=== PATIENT | female | born 1980 | race Caucasian/White ===

== ENCOUNTER → 2020-08-10 10:51 | Outpatient (CLI) | payer OTHER, SELFPAY ==
--- NOTE | ~2020-08-10 | MM_ITS ---
EXAMINATION: MM screening [facility] BI w renetta HISTORY: Screening TECHNIQUE: Craniocaudal and mediolateral oblique 3-D tomosynthesis images were obtained and synthetic 2-D images were generated. CAD analysis was submitted and interpreted. COMPARISON: Comparison to multiple prior studies sequentially, with oldest reviewed study dated 01/20. BREAST PARENCHYMAL COMPOSITION: Breast composed of scattered areas of fibroglandular density. FINDINGS: Decreased size over time of left breast mass containing tissue marker compared with prior s tudies. This was previously biopsy proven benign. There is no evidence of suspicious mass, calcificat ion, or architectural distortion to suggest malignancy in either breast. There has been no suspicious interval change. IMPRESSION: 1. No mammographic evidence of malignancy. 2. Recommend routine screening mammography in one year. BI-RADS Category 2: Benign finding(s). Reviewed, dictated and finalized at location A. 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
== END ==
PROVIDERS: Visit Provider Nurse Practitioner
DX: Z12.31 Encounter for screening mammogram for malignant neoplasm of breast (principal)
CPT/HCPCS: 77063; 77067

== ENCOUNTER → 2021-09-18 16:40 | Outpatient (CLI) | payer OTHER, SELFPAY ==
--- NOTE | ~2021-09-18 | MM_ITS ---
EXAMINATION: MM screening [facility] BI w renetta HISTORY: Screening mammogram TECHNIQUE: Craniocaudal and mediolateral oblique 3-D tomosynthesis images were obtained and synthetic 2-D images were generated. CAD analysis was submitted and interpreted. COMPARISON: 08/10/2020, 05/18/2019 BREAST PARENCHYMAL COMPOSITION: There are scattered areas of fibroglandular density. FINDINGS: There is no suspicious mass, calcification, or architectural distortion to suggest malignan cy in either breast. There has been no suspicious interval change. IMPRESSION: 1. No mammographic evidence of malignancy. 2. Recommend routine screening mammography in one year. BI-RADS Category 1: Negative Reviewed, dictated and finalized at location A.
== END ==
PROVIDERS: PCP Internal Medicine; Visit Provider Nurse Practitioner
DX: Z12.31 Encounter for screening mammogram for malignant neoplasm of breast (principal)
CPT/HCPCS: 77063; 77067

== ENCOUNTER → 2022-09-20 07:19 | Outpatient (CLI) | payer OTHER, SELFPAY ==
--- NOTE | ~2022-09-20 | MM_ITS ---
EXAMINATION: MM screening [facility] BI w renetta HISTORY: Screening TECHNIQUE: Craniocaudal and mediolateral oblique 3-D tomosynthesis images were obtained and synthetic 2-D images were generated. CAD analysis was submitted and interpreted. COMPARISON: Comparison to multiple prior studies sequentially, with oldest reviewed study dated 04/25. BREAST PARENCHYMAL COMPOSITION: .The breasts are extremely dense, which lowers the sensitivity of [facility] mography FINDINGS: There is no evidence of suspicious mass, calcification, or architectural distortion to sugg est malignancy in either breast. There has been no suspicious interval change. IMPRESSION: 1. No mammographic evidence of malignancy. 2. Recommend routine screening mammography in one year. BI-RADS Category 1: Negative Reviewed, dictated and finalized at location A.
== END ==
PROVIDERS: PCP Internal Medicine; Visit Provider Obstetrics & Gynecology Gynecology
DX: Z12.31 Encounter for screening mammogram for malignant neoplasm of breast (principal)
CPT/HCPCS: 77063; 77067

== ENCOUNTER 2023-10-18 15:59 | Outpatient (CLI) | payer OTHER, SELFPAY ==
--- NOTE | ~2023-10-18 | MM_ITS ---
EXAMINATION: MM screening [facility] BI w renetta HISTORY: Screening mammogram TECHNIQUE: Craniocaudal and mediolateral oblique 3-D tomosynthesis images were obtained and synthetic 2-D images were generated. CAD analysis was submitted and interpreted. COMPARISON: 09/20/2022, 09/18/2021 bilateral Screening mammogram examinations BREAST PARENCHYMAL COMPOSITION: There are scattered areas of fibroglandular density. FINDINGS: There are 2 biopsy markers on the left; history of benign biopsies. There is no evidence of suspicious mass, calcification, or architectural distortion to suggest malignancy in either breast . There has been no suspicious interval change. IMPRESSION: 1. No mammographic evidence of malignancy. 2. Recommend routine screening mammography in one year. BI-RADS Category 2: Benign finding(s). Reviewed, dictated and finalized at location A.
== END 2023-10-18 16:00 ==
LOC: MICIMG 15:59
PROVIDERS: PCP Obstetrics & Gynecology Gynecology; Visit Provider Obstetrics & Gynecology Gynecology
DX: Z12.31 Encounter for screening mammogram for malignant neoplasm of breast (principal)
CPT/HCPCS: 77063; 77067

== ENCOUNTER 2024-02-27 13:29 | Emergency (ER) | payer OTHER, SELFPAY ==
[2024-02-27 13:30] VITALS: BP 166/89; PULSE 97; RESP 16; TEMP 36.7; O2SAT 98
[2024-02-27] MEDS: diphenhydrAMINE HCl CAP 25 MG CAPSULE PO (16:10)
[2024-02-27] MEDS: METOCLOPRAMIDE HCL INJ 10 MG/2 ML VIAL IM (16:11)
[2024-02-27 16:17] VITALS: BP 142/94; PULSE 77; RESP 16; O2SAT 95
[2024-02-27] MEDS: KETOROLAC 30 MG/ML VIAL (*BKC) 15 MG IM (17:39)
--- NOTE | 2024-02-27 17:43 | PC.NURSE ---
Pt reports no nausea and 2/10 head pain at this time. D/t no nausea, pt refused Compazine. Toradol administered. See AUG.
--- NOTE | 2024-02-27 17:51 | ED.HA ---
HPI - Headache General Chief Complaint: Headache Stated Complaint: left eye pain x 4 days. Time Seen by Provider: 02/27/24 15:15 History of Present Illness HPI Narrative: Patient has history of migraines, several days ago started having a mild headache, which gradually worsened, she took ibuprofen and Tylenol a and I got slightly better, and yesterday started worsening again and she woke up today and was continuing to get worse, if feels like it has settled behind her left eye and radiates to the back the stabbing pain like her usual migraines, she did try taking Imitrex twice without improvement. Some nausea and light sensitivity Related Data Allergies Allergy/AdvReac Type Severity Reaction Status Date / Time No Known Allergies Allergy Unknown Verified 09/27/22 07:19 Review of Systems Review of Systems: All systems reviewed & are unremarkable except as noted in HPI and below PMFSH Family History Family History (System 09/27/22 @ 07:19 by Aron Og) Mother Hypertension Grandparent Diabetes mellitus Social History Social History (System 09/27/22 @ 07:19 by Aron Og) Alcohol intake: current Exam Narrative: EXAMINATION OF ORGAN SYSTEMS/BODY AREAS: Constitutional: Vital signs per nursing GENERAL:[No acute distress, non-toxic appearing.] HEAD: Normal with no signs of head trauma. EYES: EOMI, conjunctiva normal ENT: Hearing grossly intact LUNGS: Nonlabored breathing. HEART: [Regular rate and rhythm] ABD: Distension EXT: Normal range of motion SKIN: [No rashes or lesions.] NEURO: [Alert and oriented x 3. No gross focal sensory or strength deficits.] No facial droop. PSYCH: Normal affect Course Vital Signs Vital signs: Vital Signs Temperature 98.0 F 02/27/24 13:30 Pulse Rate 97 02/27/24 13:30 Respiratory Rate 16 02/27/24 13:30 Blood Pressure 166/89 H 02/27/24 13:30 Pulse Oximetry 98 02/27/24 13:30 Temperature 98.0 F 02/27/24 13:30 Pulse Rate 77 02/27/24 16:17 Respiratory Rate 16 02/27/24 16:17 Blood Pressure 142/94 H 02/27/24 16:17 Pulse Oximetry 95 02/27/24 16:17 MDM - Headache MDM Narrative Medical decision making narrative: 43-year-old female with history of migraines presents to the emergency department for headache which feels like her usual migraines. Patient is hemodynamically stable. No focal neurological or cranial nerve deficits on exam. No meningeal signs. The headache was gradual in onset, it is not exertional and does not appear consistent with subarachnoid hemorrhage or intracranial bleeding. No trauma. Patient is given headache cocktail including Reglan, Benadryl. Patient's headache only marginally better so I did give additional dose of Compazine and Toradol. On reevaluation, the patient feels significantly better with the headache resolved. No neurological deficits. Patient is comfortable going home for outpatient follow-up with primary care physician and/or neurology and provided with strict return precautions, especially for worsening headaches, neck pain/stiffness, fever or weakness, numbness/tingling or persistent vomiting. Discharge Plan Discharge Clinical Impression: Migraine Patient Disposition: Home, Self-Care Condition: Stable Instructions: Antibiotic Form, Migraine Headache (ED) Additional Instructions: Please follow-up with your doctor, come back to the ER if your headache returns or worsens. Prescriptions: New ondansetron 4 mg tablet,disintegrating 4 mg PO Q8H PRN (Reason: nausea and vomiting) Qty: 10 0RF Follow-up/Referrals: Laine Alvarez MD [Primary Care Provider] -
[2024-02-27 18:04] VITALS: BP 139/98; PULSE 69; RESP 16; O2SAT 97
== END 2024-02-27 18:07 | disposition home or self-care (01) ==
PROVIDERS: Emergency Provider Emergency Medicine; PCP Obstetrics & Gynecology Gynecology
DX: G43.909 Migraine, unspecified, not intractable, without status migrainosus (principal)
CPT/HCPCS: 96372; 99284; A9270; J1885; J2765

== ENCOUNTER 2024-05-28 11:59 | Outpatient (CLI) | payer OTHER, SELFPAY ==
--- NOTE | ~2024-05-28 | US_ITS ---
Pelvic ultrasound. Clinical History: Displacement of IUD Technique: Realtime transvaginal scanning of the pelvis was performed. Color flow Doppler and Doppler spectral analysis were performed. Findings: The uterus is anteverted. The endometrial stripe has a thickness of 5 mm. IUD in satisfact ory position. Heterogeneous intramural fibroid measures 2.6 cm in maximum diameter.. The right ovary measures 2.3 x 2.2 x 2.6 cm. No significant right ovarian or adnexal mass is seen. The left ovary measures 3.4 x 1.8 x 2.4 cm. No significant left ovarian or adnexal mass is seen. There is no evidence of free fluid in the cul de sac. Impression: IUD in satisfactory position. 2.6 cm fibroid. Reviewed, dictated and finalized at [facility]. KER Impression: IUD in satisfactory position. 2.6 cm fibroid.
== END 2024-05-28 12:00 | disposition home or self-care (01) ==
PROVIDERS: PCP Nurse Practitioner Women's Health; Visit Provider Nurse Practitioner Women's Health
DX: T83.32XA Displacement of intrauterine contraceptive device, initial encounter (principal); D25.1 Intramural leiomyoma of uterus; Y83.8 Other surgical procedures as the cause of abnormal reaction of the patient, or of later complication, without mention of misadventure at the time of the procedure
CPT/HCPCS: 76830

== ENCOUNTER 2024-10-19 15:29 | Outpatient (CLI) | payer OTHER, SELFPAY ==
--- NOTE | ~2024-10-19 | MM_ITS ---
EXAMINATION: MM screening [facility] BI w renetta HISTORY: Screening mammogram TECHNIQUE: Craniocaudal and mediolateral oblique 3-D tomosynthesis images were obtained and synthetic 2-D images were generated. CAD analysis was submitted and interpreted. COMPARISON: 10/18/2023, 09/20/2022, 09/18/2021, 08/10/2020 BREAST PARENCHYMAL COMPOSITION:Not Dense. There are scattered areas of fibroglandular density. FINDINGS: No suspicious mass, calcification, or architectural distortion are identified in either pastor ast to suggest malignancy. There has been no suspicious interval change. IMPRESSION: No mammographic evidence of malignancy. Recommend routine screening mammography in one year. BI-RADS Category 1: Negative Reviewed, dictated and finalized at location .
== END 2024-10-19 15:30 | disposition home or self-care (01) ==
LOC: MICIMG 15:30
PROVIDERS: PCP Obstetrics & Gynecology Gynecology; Visit Provider Obstetrics & Gynecology Gynecology
DX: Z12.31 Encounter for screening mammogram for malignant neoplasm of breast (principal)
CPT/HCPCS: 77063; 77067

== ENCOUNTER 2025-01-23 14:31 | Emergency (ER) | payer OTHER, SELFPAY ==
[2025-01-23 14:40] VITALS: BP 147/93; PULSE 105; RESP 16; TEMP 36.6; O2SAT 98
--- NOTE | 2025-01-23 15:06 | ED.URI ---
HPI - URI/Sore Throat General Chief Complaint: Upper Respiratory Infection Stated Complaint: Sore Throat Time Seen by Provider: 01/23/25 14:54 Source: patient and RN notes reviewed Mode of arrival: ambulatory Limitations: no limitations History of Present Illness HPI Narrative: Patient presents today complaining of left-sided sore throat with painful swallowing that started this morning. Currently rates her pain 5/10 and she has tried Excedrin, Chloraseptic, and cough drops without improvement. Denies shortness of breath or difficulty swallowing. Denies congestion, cough, fever, or any additional upper respiratory symptoms Related Data Allergies Allergy/AdvReac Type Severity Reaction Status Date / Time No Known Allergies Allergy Unknown Verified 01/23/25 14:57 PMFSH Family History Family History Mother Hypertension Grandparent Diabetes mellitus Social History Social History Alcohol intake: current Comments At time of signature, I have reviewed and agree with nursing past medical, surgical, social and family history unless otherwise noted. Please see nursing chart for further information. There is no relevant family history pertinent to the presenting complaint Exam Narrative: GENERAL: Well-appearing, well-nourished, and in no acute distress. HEAD: Normocephalic, atraumatic. EYES: EOMI. No redness or drainage. Conjunctivae normal. ENT: Mucous membranes pink and moist. Nares clear. No rhinorrhea. TMs normal bilaterally. Throat normal. Uvula midline. Large white ulceration to the left palatine arch area on an erythematous base NECK: Normal AROM. Supple. No lymphadenopathy. CHEST: No respiratory distress. Clear to auscultation. HEART: Regular rate and rhythm. No murmur appreciated. EXTREMITIES: Normal range of motion. No edema. SKIN: Warm, dry, no rash. Capillary refill normal. Normal skin turgor. NEURO: No focal deficits. Alert and oriented x3. Gait steady. PSYCH: Normal affect. No signs of depression or anxiety. Course Course Level of Care: Express Care Visit Vital Signs Vital signs: Vital Signs Temperature 97.9 F 01/23/25 14:40 Pulse Rate 105 H 01/23/25 14:40 Respiratory Rate 16 01/23/25 14:40 Blood Pressure 147/93 H 01/23/25 14:40 Pulse Oximetry 98 01/23/25 14:40 Temperature 97.9 F 01/23/25 14:40 Pulse Rate 105 H 01/23/25 14:40 Respiratory Rate 16 01/23/25 14:40 Blood Pressure 147/93 H 01/23/25 14:40 Pulse Oximetry 98 01/23/25 14:40 Reviewed MDM - URI/Sore Throat MDM Narrative Medical decision making narrative: 44-year-old female patient presents today with a left-sided sore throat since this morning without any additional symptoms. Exam shows large aphthous ulcer to the left palatine arch area with surrounding erythema, remainder of exam is grossly normal. Vital signs stable. Discussed dietary considerations until this large ulceration heals. Anticipatory guidance given. Differential Diagnosis Differential diagnosis: Likely upper respiratory infection, pharyngitis and other (Strep throat, mononucleosis, aphthous ulcer) Critical Care Time Critical Care Time Critical Care Time: No Discharge Plan Discharge Clinical Impression: Oral aphthae Patient Disposition: Home Condition: Stable Additional Instructions: Your rapid strep test is negative today. You have a large canker sore like lesion in the back of your throat and 1 at the roof of your mouth. These are the source of your discomfort. Please taking anti-inflammatories such as Aleve or ibuprofen. You may continue to use the Chloraseptic and cough drops as well. Foods that may worsen your discomfort include fried, spicy, citrus, salty foods, or foods that may scratch including chips or crackers. Follow-up with your PCP in 1 week if symptoms are not improving, or sooner if symptoms worsen. Your blood pressure was elevated above 120/80 today at Urgent Care. This puts you above the threshold for follow up. Please schedule a followup visit with your personal physician as soon as possible, for further evaluation and treatment. Even blood pressure exceeding 120/80 may indicate pre-hypertension. Patient Language: Kazakh Prescriptions: No Action ondansetron 4 mg tablet,disintegrating 4 mg PO Q8H PRN (Reason: nausea and vomiting) Qty: 10 0RF Follow-up/Referrals: Raheel,Jeffry Medina MD [Primary Care Provider] - Time of Disposition: 15:10
[2025-01-23 15:18] LABS: EDSTREPNEGPOS1 Negative (Negative)
== END 2025-01-23 15:13 | disposition home or self-care (01) ==
PROVIDERS: Emergency Provider Nurse Practitioner; PCP Internal Medicine
DX: K12.0 Recurrent oral aphthae (principal)
CPT/HCPCS: 87880; 99212; G0463

== ENCOUNTER 2025-01-31 21:35 | Emergency (ER) | payer OTHER, SELFPAY ==
[2025-01-31] VITALS (12 sets, daily range): BP systolic 139–183; BP diastolic 79–110; PULSE 91; RESP 16; TEMP 36.6; O2SAT 97–100
--- NOTE | ~2025-01-31 | CT_ITS ---
EXAMINATION: CT abdomen pelvis w con DATE: 02/01/2025 00:11 INDICATION: Right lower quadrant pain. UTI. TECHNIQUE: Computed tomography (CT) of the abdomen and pelvis was performed with 100 cc Omnipaque 350 intravenous contrast. The dose-length product was 1417.62 mGy-cm. Automated exposure control and ite rative reconstruction technique were employed. COMPARISON: CT dated 08/22/2011 FINDINGS: Lung bases unremarkable. Heart size normal. No significant pleural or pericardial effusion. Status post cholecystectomy. Nonobstructing right nephrolithiasis. IUD present. No ureteral stone or hydronephrosis. Normal appendix. Colonic diverticulosis without evidence for diverticulitis. No free air or free fluid. No acute osseous abnormality. IMPRESSION: 1. No acute abdominal abnormality. 2: Nonobstructing right nephrolithiasis. Reviewed, dictated and finalized at location A.
--- OUTSIDE RECORDS SUMMARY | 2025-01-31 21:37 | XMS_ITS | Patient Health Record ---
Author Organization [facility] Address [address] [place], [place] [id number] Care Team Providers Care Teacher Assistant Name Role Phone MICHELLMONROEHEBER Unavailable [phone] Shemar Pickering Unavailable Unavailable Reason For Referral No Information Plan Of Treatment No Information Insurance Providers Payer Name Payer Address Payer Phone Subscriber Number Group Number Insured Name Patient Relationship to Insured Coverage Start Date [facility]age End Date [facility] [address] [place], [place] [id number] CAITLIN CEJA Self - patient is the insured
--- OUTSIDE RECORDS SUMMARY | 2025-01-31 21:37 | XMS_ITS | Clinical Summary ---
Author Organization [facility] Address [address] [place] [address] Care Team Providers Care Tripe Scraper Name Role Phone Shemar Pickering MD Primary Care Provider + Shemar Pickering MD Unavailable [phone] Allergies Active Allergy Reactions Criticality Noted Date Comments Hydrocodone Stomach upset Low 04/16/2019 Stomach/GI Upset Tramadol Nausea & Vomiting Low 04/16/2019 NAUSEA/VOMITTING/HEART RACING/JITTERY Medications levonorgestrel (MIRENA) IUD inserted 0 08/23/19 12 Active ergocalciferol (VITAMIN D2) 50,000 unit capsule take 1 capsule by oral route every week 12 0 04/19/20 16 Active baclofen (LIORESAL) 5 mg tablet Take 1 tablet (5 mg total) by mouth 3 (three) times a day as needed for muscle spasms 90 tablet 5 02/22/20 23 Active famotidine (PEPCID) 40 mg tabletIndicatio ns:Gastroesopha geal reflux disease without esophagitis Take 1 tablet (40 mg total) by mouth nightly as needed for heartburn 30 tablet 3 05/09/20 23 Active Emgality Pen 120 mg/mL pen injector INJECT 1 ML SUBCUTANEOUSLY ONCE EVERY MONTH 05/21/20 23 Active chlorhexidine (PERIDEX) 0.12 % solution 09/25/19 24 Active gabapentin (NEURONTIN) 300 mg capsule Take 1 capsule (300 mg total) by mouth 3 (three) times a day 90 capsule 11 01/27/20 24 Active SUMAtriptan (IMITREX) 50 mg tabletIndicatio ns:Migraine Take 1 tablet (50 mg total) by mouth once as needed for migraine (headache) May repeat one time after 2 hours if needed. 9 tablet 2 02/07/20 24 025 Active Additional Information Patient not taking.Reported on 06/04/2024 lidocaine (XYLOCAINE) 5 % ointmentIndicat ions:Small fiber neuropathy Apply topically nightly as needed for pain 35 g 3 02/07/20 Active carBAMazepine XR (TEGretol XR) 400 mg 12 hr tablet Take 1 tablet (400 mg total) by mouth 2 (two) times a day 60 tablet 2 02/07/20 24 Active Additional Information Patient not taking.Reported on 06/04/2024 ubrogepant (Ubrelvy) 100 mg tablet Take 1 tablet (100 mg total) by mouth once as needed for migraine May repeat dose once in 2 hours if no relief. Do not exceed 2 doses in 24 hours. 10 tablet 11 03/10/20 24 025 Active nitrofurantoin monohydrate (MACROBID) 100 mg capsule TAKE 1 CAPSULE BY MOUTH TWICE DAILY FOR 7 DAYS 05/17/20 24 Active escitalopram (LEXAPRO) 20 mg tablet Take 1 tablet by mouth once daily 90 tablet 5 09/12/19 25 Active Active Problems Problem Noted Date Diagnosed Date Small fiber neuropathy 06/01/2024 Screening for colon cancer 09/20/2023 Assessment & Plan (09/20/2023 11:58 AM CDT): No prior colonoscopy. No family history colon cancer. -schedule colonoscopy -The risks (risks of bleeding, infection, perforation requiring surgery, missed polyps/cancer, dental injury, aspiration pneumonia, anesthesia complications such as drug reaction and cardiopulmonary complications including rare chance of ), benefits, and alternatives of the planned procedure were explained to the patient who understands and consents to having procedure done. Paresthesia of skin 07/26/2023 Dysphagia 05/09/2023 Assessment & Plan (09/20/2023 11:58 AM CDT): Dysphagia for the past few months. Dysphagia to solids, worse with bread and meat. Drinks liquid to push food down. EGD August 2023 with mild nonobstructive Schatzki's ring status post dilation with 20 mm balloon. Dysphagia improved significantly with dilation. 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 Dysphagia to solids, worse with bread and meat. Drinks liquid to push food down. -schedule EGD -The risks (risks of bleeding, infection, perforation requiring surgery, missed polyps/cancer, dental injury, aspiration pneumonia, anesthesia complications such as drug reaction and cardiopulmonary complications including rare chance of ), benefits, and alternatives of the planned procedure were explained to the patient who understands and consents to having procedure done. Gastroesophageal reflux disease without esophagi tis 05/09/2023 Assessment & Plan (09/20/2023 11:58 AM CDT): Chronic GERD intermittently, was getting progressively worse, now improved with PPI daily and famotidine q.h.s.. EGD August 2023 with LA grade A esophagitis. -continue omeprazole 20 mg p.o. daily and famotidine prn -RECOMMENDATIONS given include: anti-reflux maneuvers, Avoid acidic foods like oranges and tomatoes., avoidance of spicy foods, avoid eating 3-4 hours before bed, elevation of the head of the bed, and weight loss Assessment & Plan (05/09/2023 7:46 AM RETAIL SALES MERCHANDISER): Chronic GERD intermittently, getting progressively worse over the past few months. Worse with spicy foods, red sauces, and overeating. Symptoms worse at night when lying down. Tried Nexium and Prilosec which helps some. -start omeprazole 20 mg p.o. daily and famotidine 40 mg p.o. q.h.s. -RECOMMENDATIONS given include: anti-reflux maneuvers, Avoid acidic foods like oranges and tomatoes., avoidance of spicy foods, avoid eating 3-4 hours before bed, elevation of the head of the bed, and weight loss Tendinitis of finger of right hand 07/18/2018 Vitamin D deficiency 03/07/2017 Vitamin B12 deficiency 03/07/2017 Healthcare maintenance 02/18/2017 Medication management 02/18/2017 Migraine with aura and witho ut status migrainosus, not intractable 02/18/2017 Right wrist pain 06/06/2016 Carpal tunnel syndrome of right wrist 04/30/2016 Hand pain 04/30/2016 Benign paroxysmal positional vertigo 08/08/2015 Overview (09/28/2016): BPPV - Benign paroxysmal positional vertigo Lesion of breast 01/25/2015 Overview (09/28/2016): Lesion of breast Narcolepsy without cataplexy(347.00) 01/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 Overview (09/28/2016): Narcolepsy Tarsal tunnel syndrome 01/27/2014 Overview (09/28/2016): TTS (tarsal tunnel syndrome) Gastrointestinal hemorrhage 11/07/2013 Overview (09/28/2016): GASTROINTEST HEMORR NOS Immunizations Immunization Administration Dates Next Due DTaP 01/28/1985, 1,1979,1979,1979 IPV 01/28/1985, 1,1979,1979,1979 Influenza, Quadrivalent, Spl it, Preservative Free, Intradermal 05/02/2016 Influenza, Trivalent, IM (MDV) 04/24/2013 MMR 05/18/2015,2015,02/03/1993 Measles 06/25/1980 Mumps 12/24/1980 Rubella 06/25/1980 Td, Unspecified 02/03/1993 Tdap 12/19/2010 Surgical History Surgery Date Site/Laterality Comments LASIK LASIK TONSILLECTOMY Tonsillectomy CHOLECYSTECTOMY Cholecystectomy OTHER SURGICAL HISTORY bilateral feet surgery / bunionectomy & ankle surgery OTHER SURGICAL HISTORY repair of torn cartilidge in right wrist WRIST SURGERY FOOT FRACTURE SURGERY Left Medical History Medical History Date Comments Depression depression Hx Other Medical 08/22/2011 ER visit for Ab d pain Hx 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 Other Medical psychiatric dis order/mild depression; Comments: [facility] 04/08/2014 - Hx Other Medical Headache, migra ine Tension headache Headache, tensi on Hx Other Medical chest pain/SOB Hx Other Medical kidney stones; Comments: GDS 01/25/2015 - Hx Other Medical Headache Medication monitoring encounter Narcolepsy Depression Migraines GERD (gastroesophageal reflu x disease) Neuropathy PONV (postoperative nausea a nd vomiting) Family History Medical History Relation Name Comments Irritable bowel syndrome Maternal Grandmother Irritable bowel disease; Hypertension Mother Hypertension; Other Mother cholecystectomy ; Other Mother's Sister 2 cholecyste ctomy; Heart disease Other 1 Heart disease; Hyperlipidemia Other 2 High choleste rol; Diabetes type II Paternal Grandmother Jenise feliciano mellitus type 2; Relation Name Status Comments Maternal Grandmother Alive Mother Alive Mother's Sister 1 Alive Mother's Sister 2 Other 1 Other 2 Paternal Grandmother Social History Tobacco Use Types Packs/Day Years Used Date Smoking Tobacco: Every Day Cigarettes Smokeless Tobacco: Never Tobacco Cessation:Ready to Q uit: Not Asked; Counseling Given: Not Answered Comments:Smoking History Packs/day: 0.25 Packs Alcohol Use Standard Drinks/Week Comments No 0 (1 standard drink = 0.6 oz pur e alcohol) AUDIT-C Answer Date Recorded Q1: How often do you have a drink containing alc ohol? Monthly or less 04/21/2024 Q2: How many drinks containi ng alcohol do you have on a typical day when you are drinking? 1 or 2 04/21/2024 Q3: How often do you have si x or more drinks on one occasion? Never 04/21/2024 Personal Safety Answer Date Recorded Have you ever been in or are you currently in a harmful physical or emotional relationship or is someone making you feel afraid or unsafe? Denies 04/21/2024 Comments No Sex and Gender Information Value Date Recorded Sex Assigned at Not on file Legal Sex Female 7:04 PM RETAIL SALES MERCHANDISER Gender Identity Not on file Sexual Orientation Not on file Obstetrics History Last Filed Vital Signs Vital Sign Reading Time Taken Comments Blood Pressure 140/82 06/04/2024 8:38 AM RETAIL SALES MERCHANDISER Pulse 110 06/04/2024 8:38 AM RETAIL SALES MERCHANDISER Temperature 36.2 C (97.1 F) 04/21/2024 7:58 AM CDT Respiratory Rate 20 06/04/2024 8:38 AM RETAIL SALES MERCHANDISER Oxygen Saturation 96% 06/04/2024 8:38 AM RETAIL SALES MERCHANDISER Inhaled Oxygen Concentration - - Weight 102.1 kg (225 lb) 06/04/2024 8:38 AM RETAIL SALES MERCHANDISER Height 165.1 cm (5' 5) 06/04/2024 8:38 AM RETAIL SALES MERCHANDISER Body Mass Index 37.44 06/04/2024 8:38 AM RETAIL SALES MERCHANDISER Plan of Treatment Health Maintenance Due Date Last Done Comments Cervical Cancer Screening 1979 Hepatitis C Screening 1979 Hepatitis B Screening 1997 Regular Well Visit/Exam 18-64 1997 Pneumococcal vaccine <65 (1 of 2 - PCV) 1998 HPV Vaccines (1 - 3-dose SCD M series) 2006 Breast Cancer Screening-Mammogram 11/27/2016 11/28/2015, 11/28/2015, 01/28/2015, Additional history exists Depression Screening 02/18/2018 02/18/2017 DTaP/Tdap/Td Vaccine (7 - Td or Tdap) 12/19/2020 12/19/2010, 02/03/1993, 01/28/1985, Additional history exists Covid-19 Vaccine ( - 2023-2 5 season) 2024 05/09/2023, 03/30/2022, 05/11/2021, Additional history exists Influenza Vaccine (#1) 2025 , 03/30/2022, 03/23/2021, Additional history exists Colon Cancer Screening-Colonoscopy 04/21/20292023 Medical Devices Implanted Type Area Senior Research Associate Device Identifier Shelf Expiration Date Model / Serial / Lot Plate Plate Left: Foot Screw Screw Left: Foot Procedures Procedure Name Priority Date/Time Associated Diagnosis Comments COLONOSCOPY 04/21/2024 7:30 AM CDT MAMMOGRAPHY Routine 11/28/2015 from Last 3 Months or Most Recently Relevant to Health Maintenance Results * Colonoscopy (04/21/2024 7:30 AM CDT) Anatomical Region Laterality Modality Other Narrative Procedure Note Jose Fritz MD - 04/21/2024 7:30 AM CDT [facility] GI ENDOSCOPY Patient Name: Nevin Licea Procedure Date: 04/21/2024 7:30 AM Date of : 1980 Admit Type: Outpatient Age: 44 Gender: Female Attending MD: Jose Fritz M.D. Room: [facility] ENDOSCOPY ROOM 06 Note Status: Finalized Procedure: Colonoscopy Indications: Screening for colorectal malignant neoplasm Referring MD: Shemar Pickering M.D. Providers: Jose Fritz M.D. Medicines: Monitored Anesthesia Care Complications: No immediate complications. Estimated Blood Loss: Estimated blood loss: none. Procedure: Pre-Anesthesia Assessment: - Prior to the procedure, a History and Physicalwas performed, and patient medications and allergieswere reviewed. The risks and benefits of the procedureand the sedation options and risks were discussed withthe patient. All questions were answered and informed consent was obtained. Patient identification and proposed procedure were verified. After reviewingthe risks and benefits, the patient was deemed in satisfactory condition to undergo the procedure.The anesthesia plan was to use monitored anesthesiacare (MAC). Immediately prior to administration of medications, the patient was re-assessed foradequacy to receive sedatives. The heart rate, respiratory rate, oxygen saturations, blood pressure, adequacyof pulmonary ventilation, and response to care were monitored throughout the procedure. The physical status of the patient was re-assessed after the procedure. The benefits, risks and alternatives of theprocedure and sedation were discussed and informed consentwas obtained. All questions were answered. Please referto the signed informed consent document in the medical record. The scope was passed under direct vision.The [id number] was introduced through theanus and advanced to the cecum, identified byappendiceal orifice and ileocecal valve. The colonoscopy was performed without difficulty. The patient tolerated the procedure well. The quality of the bowel preparation was adequate. Scope withdrawal time was14 minutes. Prep was administered in a split dose. Findings: The perianal and digital rectal examinations were normal. A 7 mm polyp was found in the ascending colon. The polyp was sessile. The polyp was removed with a hot snare. Resection and retrieval were complete. Three polyps were found in the sigmoid colon. The polyps werediminutive in size. These polyps were removed with a cold biopsy forceps.Resection and retrieval were complete. A 10 mm polyp was found in the recto-sigmoid colon. The polyp was sessile. The polyp was removed with a hot snare. Resection andretrieval were complete. A few small-mouthed diverticula were found in the sigmoid colon. Non-bleeding internal hemorrhoids were found during retroflexion. The hemorrhoids were small. The exam was otherwise without abnormality. Impression: - One 7 mm polyp in the ascending colon, removedwith a hot snare. Resected and retrieved. - Three diminutive polyps in the sigmoid colon, removed with a cold biopsy forceps. Resected and retrieved. - One 10 mm polyp at the recto-sigmoid colon,removed with a hot snare. Resected and retrieved. - Diverticulosis in the sigmoid colon. - Non-bleeding internal hemorrhoids. - The examination was otherwise normal. Recommendation: - Patient has a contact number available for emergencies. The signs and symptoms of potential delayed complications were discussed with thepatient. Return to normal activities tomorrow. Written discharge instructions were provided to thepatient. - High fiber diet. - Continue present medications. - Await pathology results. - Repeat colonoscopy in 5 years for surveillance. Jose Fritz M.D. Jose Fritz M.D. 04/21/2024 7:56:15 AM . Number of Addenda: 0 Note Initiated On: 04/21/2024 7:30 AM Recognized by the [employer] [place] for promoting quality in endoscopy Jose Fritz MD ENDOSCOPY PROCEDURES Final Resul t * HM MAMMOGRAPHY (11/28/2015) [facility] Signature Mammogram Normal Comment:Next screening at ag e 39 Historical Provider HEALTH MAINTENANCE Final Result from Last 3 Months or Most Recently Relevant to Health Maintenance Insurance [place] [id number] [facility] [id number] [facility] [id number] Care Teams Tripe Scraper Relationship Specialty Start Date End Date Shemar Pickering MD [address] [address] PCP - General 07/18/18 Shemar Pickering MD [address] [place] [address] 07/18/18
--- OUTSIDE RECORDS SUMMARY | 2025-01-31 21:37 | XMS_ITS | Encounter Summary ---
Author Organization [facility] Facility Care Team Providers Care Typewriter Operator Automatic Name Role Phone Shemar Pickering MD Primary Care Provider + Shemar Pickering MD Primary Care Provider + Shemar Pickering MD Primary Care Provider + Shemar Pickering MD Primary Care Provider + Shemar Pickering MD Unavailable [phone] Encounter Details Date Type Department Care Team (Latest Contact Info) Description 06/12/2016 Orders Only [facility] CLINCONV ProviderMeghana MD [address] [place] [id number] Social History Tobacco Use Types Packs/Day Years Used Date Smoking Tobacco: Every Day Comments:Smoking History Pac ks/day: 0.25 Packs Alcohol Use Standard Drinks/Week Comments No 0 (1 standard drink = 0.6 oz pur e alcohol) Comments Unknown Sex and Gender Information Value Date Recorded Sex Assigned at Not on file Legal Sex Female 7:04 PM DIRECTOR VETERINARY Gender Identity Not on file Sexual Orientation Not on file documented as of this encounter Plan of Treatment Not on file documented as of this encounter Procedures Procedure Name Priority Date/Time Associated Diagnosis Comments PROCEDURE - RESULT 06/12/2016 12 :00 AM DIRECTOR VETERINARY PROCEDURE - RESULT 06/07/2016 12 :00 AM DIRECTOR VETERINARY documented in this encounter Results * PROCEDURE - RESULT (06/12/2016 12:00 AM DIRECTOR VETERINARY) Narrative 06/12/2016 12:00 AM DIRECTOR VETERINARY Ordered by an unspecified provider. Historical Provider Final Res ult * PROCEDURE - RESULT (06/07/2016 12:00 AM DIRECTOR VETERINARY) Narrative 06/07/2016 12:00 AM DIRECTOR VETERINARY Ordered by an unspecified provider. Historical Provider Final Res ult documented in this encounter Visit Diagnoses Not on filedocumented in this encounter Care Teams Typewriter Operator Automatic Relationship Specialty [place] [address] [place] [address] [place] [id number] PCP - General 03/12/13 09/07/16 Shemra Pickering MD [address] [place] [address] [place] [address] PCP - General 09/08/16 09/20/16 Shemar Pickering MD [address] [place] [address] [place] [address] PCP - General 09/21/16 07/17/18 Shemar Pickering MD [address] [place] [address] [place] [address] PCP - General 07/18/18 Shemar Pickering MD [address] [place] [address] [place] [id number] 07/18/18 documented as of this encounter
--- OUTSIDE RECORDS SUMMARY | 2025-01-31 21:37 | XMS_ITS | Encounter Summary ---
Author Organization [facility] Facility Care Team Providers Care String Winding Machine Operator Name Role Phone Shemar Pickering MD Primary Care Provider + Shemar Pickering MD Primary Care Provider + Shemar Pickering MD Primary Care Provider + Shemar Pickering MD Primary Care Provider + Shemar Pickering MD Unavailable [phone] Encounter Details Date Type Department Care Team (Latest Contact Info) Description 06/07/2016 Orders Only [facility] CLINCONV ProviderMeghana MD [address] [place] [id number] Social History Tobacco Use Types Packs/Day Years Used Date Smoking Tobacco: Every Day Comments:Smoking History Pac ks/day: 0.25 Packs Alcohol Use Standard Drinks/Week Comments No 0 (1 standard drink = 0.6 oz pur e alcohol) Comments Unknown Sex and Gender Information Value Date Recorded Sex Assigned at Not on file Legal Sex Female 7:04 PM SOLE ROUNDER Gender Identity Not on file Sexual Orientation Not on file documented as of this encounter Plan of Treatment Not on file documented as of this encounter Procedures Procedure Name Priority Date/Time Associated Diagnosis Comments PROCEDURE - RESULT 05/08/2016 12 :00 AM SOLE ROUNDER documented in this encounter Results * PROCEDURE - RESULT (05/08/2016 12:00 AM SOLE ROUNDER) Narrative 05/08/2016 12:00 AM SOLE ROUNDER Ordered by an unspecified provider. us Historical Provider Final Res ult documented in this encounter Visit Diagnoses Not on filedocumented in this encounter Care Teams String Winding Machine Operator Relationship Specialty Start Date End Date Shemar Pickering MD [address] [place] [address] [place] [address] PCP - General 03/12/13 09/07/16 Shemar Pickering MD [address] [place] [address] [place] [address] PCP - General 09/08/16 09/20/16 Shemar Pickering MD [address] [place] [address] [place] [address] PCP - General 09/21/16 07/17/18 Shemar Pickering MD [address] [place] [address] [place] [address] PCP - General 07/18/18 Shemar Pickering MD [address] [place] [address] [place] [address] 07/18/18 documented as of this encounter
--- OUTSIDE RECORDS SUMMARY | 2025-01-31 21:37 | XMS_ITS | Clinical Summary ---
Author Organization [facility] Address [address] [place] [address] Care Team Providers Care Director Global Sales Name Role Phone Shemar Pickering MD Primary Care Provider [phone] Source Comments [facility] Affiliates and Associated Physician Practices is amultiple site organization consisting of ambulatory clinics and hospital sitesin [place], [place], [place] and [place]. This disclosure is being madepursuant to the Care Everywhere program and may not contain all information available regarding this patient. Last updated 18.[facility] [place] Allergies No known active allergies Medications * Be aware that medications may not be up to date on this document. Alwaysverify current medications with the patient. No known medications Social History Tobacco Use Types Packs/Day Years Used Date Smoking Tobacco: Every Day Smokeless Tobacco: Never Comments Unknown Sex and Gender Information Value Date Recorded Sex Assigned at Not on file Legal Sex Female 8:47 AM CDT Gender Identity Not on file Sexual Orientation Not on file Last Filed Vital Signs Vital Sign Reading Time Taken Comments Blood Pressure 126/84 04/10/2017 10:17 AM CDT Pulse 83 04/10/2017 10:17 AM CDT Temperature 37.3 C (99.1 F) 04/10/2017 10:17 AM CDT Respiratory Rate 16 04/10/2017 10:17 AM CDT Oxygen Saturation 98% 04/10/2017 10:17 AM CDT Inhaled Oxygen Concentration - - Weight 90.7 kg (200 lb) 04/10/2017 10:17 AM CDT Height 165.1 cm (5' 5) 04/10/2017 10:17 AM CDT Body Mass Index 33.28 04/10/2017 10:17 AM CDT Plan of Treatment Health Maintenance Due Date Last Done Comments COLOGUARD (AGES 45-75) - COL ON CA SCREENING 1979 COLON MONITORING 1979 COLONOSCOPY - COLON CA SCREENING 1979 CT COLONOGRAPHY - COLON CA SCREENING 1979 Colorectal Cancer Screening 1979 FIT - COLON CA SCREENING 1979 FLEX SIG - COLON CA SCREENING 1979 LIPID TESTING 1979 MAMMOGRAM 1979 HIV SCREENING 1994 HEPATITIS C SCREENING 04/09/1997 DTAP/TDAP/TD VACCINES (1 - Tdap) 1998 HEPATITIS B VACCINE (1 of 3 - 19+ 3-dose series) 1998 HPV VACCINE (1 - 3-dose SCDM series) 2006 COVID-19 VACCINE (1 - 2023-2 5 season) 2024 DEPRESSION SCREENING 06/24/2024 INFLUENZA VACCINE (#1) 2025 ZOSTER VACCINE (1 of 2) 2029 HIB VACCINE Aged Out No longer eligi ble based on patient's age to complete this topic MENINGOCOCCAL (Group B) VACC INE SHARED DECISION-MAKING Aged Out No longer eligibl e based on patient's age to complete this topic MENINGOCOCCAL GROUPS A/C/Y/W VACCINE Aged Out No longer eligible b ased on patient's age to complete this topic PNEUMOCOCCAL VACCINE Aged Out No long er eligible based on patient's age to complete this topic Insurance [employer] Care Teams Director Global Sales Relationship Specialty Start Date End Date Shemar Pickering MD PCP - General Internal Medicine 04/10/17
--- OUTSIDE RECORDS SUMMARY | 2025-01-31 21:37 | XMS_ITS | Clinical Summary ---
Author Organization [facility] Address [address] [place] [address] Care Team Providers Care Swaging Machine Adjuster Name Role Phone Unavailable Primary Care Provider Unavailabl e Immunizations Immunization Administration Dates Next Due Covid-19, Mrna, Lnp-s, PF, 5 0 mcg/0.25 mL dose (Moderna) 05/11/2021 Social History Tobacco Use Types Packs/Day Years Used Date Smoking Tobacco: Never Assessed Comments Unknown Sex and Gender Information Value Date Recorded Sex Assigned at Not on file Legal Sex Female 11:13 AM BINDER FOLDER OPERATOR Gender Identity Not on file Sexual Orientation Not on file Plan of Treatment Health Maintenance Due Date Last Done Comments Hepatitis C Virus (HCV) Screening 1980 Hepatitis B Immunization (1 of 3 - 19+ 3-dose series) 1998 Pap Smear 2000 Human Papillomavirus (HPV) Immunization (1 - 3-dose SCDM series) 2006 Cervical Cancer Screening (CCS) 2009 HPV/Cotest 2009 SARS-COV-2 Immunization ( season) 2024 05/11/2021, 09/08/2020, 08/11/2020 Cologuard 2024 Colonoscopy 2024 Colorectal Cancer Screening 2024 Immunochemical Fecal Occult Blood 2024 Influenza Immunization (#1) 2025 09/3 , 04/26/2018, 05/02/2016, Additional history exists Respiratory Syncytial Virus (RSV) Immunization (Adult) (1 - 1-dose 75+ series) 2054 DTaP/Tdap/Td Immunization Discontinued 2010, 02/03/1993, 01/28/1985, Additional history exists TdaP Immunization Completed 12/19/2010 Meningococcal Immunization (ACWY) Aged Out No longer eligible based on patient's age to complete this topic Pneumococcal Immunization Combined Aged Out No longer eligible based on patient's age to complete this topic Rotavirus Immunization Aged Out No lo nger eligible based on patient's age to complete this topic
[2025-01-31 22:07] LABS: Add Urine Microscopic? YES; Appearance Urine Clear (Clear); Glucose Urine UA Negative (Negative); Leukocyte Esterase Ur 3+ LEU/UL (Negative); Nitrate Urine Negative (Negative); Non Pathogenic Casts 0-2; Specific Grav Ur 1.006 (1.001-1.035)
[2025-01-31 22:08] LABS: Hematocrit 43.2 % (37.0-47.0); Hemoglobin 14.9 g/dL (12.0-15.0); Immature Granulocyte Percent A 0.5 % (0-0.5); Lymphocytes Absolute Auto 4.42 K/mm3 (0.9-3.2); Mean Corpuscular HGB Conc 34.5 g/dl (32-36); Mean Corpuscular Hemoglobin 30.8 pg (26-34); Mean Corpuscular Volume 89.4 fl (80-100); Nucleated Red Blood Cells Absolute Auto 0.000 K/mm3 (0.0-0.012); Nucleated Red Blood Cells Perc 0.0 % (0.0-0.2); Platelet Count Result 440 k/mm3 (150-375); Red Blood Count 4.83 M/mm3 (4.2-5.4); White Blood Count 13.5 K/mm3 (4.5-10.0)
[2025-01-31 22:22] LABS: Alanine Aminotransferase 30 U/L (6-35); Albumin Level 4.5 g/dL (3.5-5.1); Alkaline Phosphatase 77 U/L (38-126); Anion Gap 10 mmol/L (4-12); Aspartate Amino Transferase 32 U/L (14-36); Bilirubin,Total 0.3 mg/dL (0.2-1.3); Blood Urea Nitrogen 14 mg/dL (7-17); Calcium 10.1 mg/dL (8.4-10.2); Carbon Dioxide 23 mmol/L (22-30); Chloride 105 mmol/L (98-107); Estimated CRCL calculation 99 ml/min; Estimated Glomerular Filt Rate > 60; Glucose 96 mg/dL (65-110); Lipase 85 U/L (23-300); Potassium 4.3 mmol/L (3.4-5.0); Sodium 138 mmol/L (137-145); Total Protein 7.6 g/dL (6.3-8.2)
[2025-01-31 22:30] LABS: Schistocytes None Seen
[2025-01-31 22:57] LABS: Pregnancy On Board Control Positive
--- NOTE | 2025-01-31 23:24 | ED_ITS ---
HPI - Abdominal Pain General Chief Complaint: Abdominal Pain Stated Complaint: abdominal/back pain Time Seen by Provider: 01/31/25 22:53 History of Present Illness HPI narrative: 44-year-old female with a past medical history of previous cholecystectomy for gallstones. She presents to the emergency department with periumbilical pain radiating towards the right lower quadrant and right flank. States the pain is a pulling and burning sensation feels similar to a contraction. Took Aleve with some minimal relief. Endorses some mild nauseousness. Was otherwise in her normal state of health. Still has her appendix and ovaries. Denies chance of . No urinary complaints, discharge or foul odor. No urgency or dysuria. Related Data Home Medications ?Medication ?Instructions ?Recorded ?Confirmed ?Last Taken ?Type escitalopram oxalate 10 mg tablet 20 mg DAILY 01/31/25 Unknown History Allergies Allergy/AdvReac Type Severity Reaction Status Date / Time No Known Allergies Allergy Unknown Verified 01/31/25 21:42 Review of Systems 2 Review of Systems: [facility] Family History Family History Mother Hypertension Grandparent Diabetes mellitus Social History Social History Alcohol intake: current Exam 2 Narrative: GENERAL: [Well-appearing, well-nourished, and in no acute distress.] HEAD: [Normocephalic, atraumatic.] EYES: [PERRLA and EOMI.] ENT: Nares clear, no rhinorrhea or epistaxis. Mucous membranes moist. NECK: Supple. CHEST: [Clear to auscultation. No respiratory distress.] HEART: [Regular rate and rhythm]. No murmur heard. [Normal peripheral pulses.] ABDOMEN: [Soft, nondistended], tender to palpation the right lower quadrant, [No rigidity or guarding] EXTREMITIES: Normal range of motion. [No edema.] SKIN: Warm, dry, no rash. NEURO: [No focal deficits]. Alert and oriented [x3.] PSYCH: [Normal mood and affect.] Course Vital Signs Vital signs: Vital Signs Temperature 36.6 C 01/31/25 21:39 Pulse Rate 91 01/31/25 21:39 Respiratory Rate 16 01/31/25 21:39 Blood Pressure 183/100 H 01/31/25 21:39 Pulse Oximetry 100 01/31/25 21:39 Temperature 36.6 C 01/31/25 21:39 Pulse Rate 91 01/31/25 21:39 Respiratory Rate 16 01/31/25 21:39 Blood Pressure 141/89 H 02/01/25 01:32 Pulse Oximetry 100 02/01/25 01:32 MDM - Abdominal Pain MDM Narrative Medical decision making narrative: 44-year-old female with a past medical history of previous cholecystectomy for gallstones. She presents to the emergency department with periumbilical pain radiating towards the right lower quadrant and right flank. States the pain is a pulling and burning sensation feels similar to a contraction. Took Aleve with some minimal relief. Endorses some mild nauseousness. Was otherwise in her normal state of health. Still has her appendix and ovaries. Denies chance of . No urinary complaints, discharge or foul odor. No urgency or dysuria. Patient is overall well-appearing not any acute distress. Blood pressure is mildly elevated but not severe. No tachycardia, tachypnea or fever. She has reproducible tenderness in the right lower quadrant. Given the migrating pain starting her umbilical region radiating to the right lower quadrant differential includes appendicitis, intra-abdominal abscess, kidney stone, pyelonephritis, urinary tract infection, less likely ovarian pathology. Workup underway with CBC, CMP, lipase and urinalysis. test ordered. She is given morphine Zofran fluids. CT with abdomen pelvis protocol and IV contrast obtained. CT scan reveals a 3 mm obstructing mid pole right renal stone consistent with patient's clinical exam. No hydronephrosis. No obstructive uropathy. Patient does have some bacteriuria but no urinary tract infection symptoms. Minor white count but afebrile with normal kidney function. No tachycardia tachypnea and otherwise appears well. She felt better after pain control medications and fluids. We went over the diagnosis and plan of care including antibiotic treatment, Flomax and pain control until passing of a kidney stone. She is given very strict return precautions including developing high-grade fevers, worsening pain, difficulty urinating, back pain or any other concerns she should seek repeat evaluation emergency department otherwise we will treat this with outpatient management and have her follow-up with Urology. Patient comfortable the plan safely discharged. Medical Records Attestation: I reviewed the patient's medical records. Lab Data Attestation: I reviewed the patient's lab results. 01/31/25 22:03 01/31/25 22:03 Labs: Lab Results 01/31/25 01/31/25 Range/Units 21:48 22:03 WBC 13.5 H (4.5-10.0) K/mm3 RBC 4.83 (4.2-5.4) M/mm3 Hgb 14.9 (12.0-15.0) g/dL Hct 43.2 (37.0-47.0) % MCV 89.4 (80-100) fl MCH 30.8 (26-34) pg MCHC 34.5 (32-36) g/dl RDW 13.2 (11.5-14.5) % Plt Count 440 H (150-375) k/mm3 MPV 9.6 (7.4-10.4) fl Immature Gran % (Auto) 0.5 (0-0.5) % Neut % (Auto) 56.7 (45.5-73.1) % Lymph % (Auto) 32.7 (18.3-44.2) % [place] % (Auto) 7.4 (2.6-8.5) % Eos % (Auto) 2.3 (0-4.4) % Baso % (Auto) 0.4 (0.2-1.2) % Lymph # (Auto) 4.42 H (0.9-3.2) K/mm3 [place] # (Auto) 1.0 H (0.1-0.6) K/mm3 Eos # (Auto) 0.3 (0-0.3) K/mm3 Baso # (Auto) 0.1 (0.0-0.1) K/mm3 Abs Immat Gran (auto) 0.07 H (0.00-0.031) K/mm3 Absolute Neuts (auto) 7.7 H (1.3-6.7) K/mm3 Absolute Nucleated RBC 0.000 (0.0-0.012) K/mm3 Band Neutrophils % Not Reportable Nucleated RBC % 0.0 (0.0-0.2) % Atypical Lymphocytes Present Platelet Estimate Increased (Adequate) Schistocytes None seen Sodium 138 (137-145) mmol/L Potassium 4.3 (3.4-5.0) mmol/L Chloride 105 (98-107) mmol/L Carbon Dioxide 23 (22-30) mmol/L Anion Gap 10 (4-12) mmol/L BUN 14 (7-17) mg/dL Creatinine 0.78 (0.7-1.0) mg/dL Estim Creat Clear Calc 99 ml/min Estimated GFR > 60 (59 - ) Glucose 96 (65-110) mg/dL Calcium 10.1 (8.4-10.2) mg/dL Total Bilirubin 0.3 (0.2-1.3) mg/dL AST 32 (14-36) U/L ALT 30 (6-35) U/L Alkaline Phosphatase 77 (38-126) U/L Total Protein 7.6 (6.3-8.2) g/dL Albumin 4.5 (3.5-5.1) g/dL Lipase 85 (23-300) U/L Urine Color Yellow (Yellow) Urine Appearance Clear (Clear) Urine pH 6.0 (5.0-9.0) Ur Specific [place] 1.006 (1.001-1.035) Urine Protein Negative (Negative) mg/dL Urine Glucose (UA) Negative (Negative) mg/dL Urine Ketones Negative (Negative) mg/dL Ur Blood (Man) Trace (Negative) Urine Nitrate Negative (Negative) Urine Bilirubin Negative (Negative) Urine Urobilinogen 0.2 (<2.0) mg/dL Leukocyte Esterase Rfl 3+ H (Negative) JONATAN/UL Urine RBC 0-2 (0-2) /hpf Urine WBC 51-100 H (0-3) /hpf Ur Squamous Epith Cells Few (Few) /hpf Urine Bacteria 1+ H /hpf Urine Casts 0-2 Urine Test Negative Imaging Data Attestation: I personally reviewed and interpreted this imaging study as follows: My impression: 3 mm kidney stone right mid pole Discharge Plan Discharge Clinical Impression: Kidney stone on right side, Urinary tract infection Patient Disposition: Home Condition: Stable Instructions: Antibiotic Form, Kidney Stones (ED), Urinary Tract Infection in Women (DC), How to Strain Your Urine (ED), Flank Pain (ED) Additional Instructions: We will treat your kidney stone with antibiotics, Flomax for urinary dilation, pain control medications. Follow-up with your primary care provider and urologist we have referred you to. Return with any high fevers, worsening pain, intubated urinate or any other emergent concerns. Patient Language: Setswana Prescriptions: New cefdinir 300 mg capsule 300 mg PO Q12H 7 Days Qty: 14 0RF ketorolac 10 mg tablet 10 mg PO Q8H PRN (Reason: pain) 5 Days Qty: 20 0RF Rx Instructions: maximum total duration of 5 days from all oral, intranasal, or parenteral formulations tamsulosin [Flomax] 0.4 mg capsule 0.4 mg PO DAILY Qty: 20 0RF ondansetron 4 mg tablet,disintegrating 4 mg PO Q8H PRN (Reason: nausea and vomiting) Qty: 10 0RF No Action ondansetron 4 mg tablet,disintegrating 4 mg PO Q8H PRN (Reason: nausea and vomiting) Qty: 10 0RF escitalopram oxalate 10 mg tablet 20 mg DAILY Follow-up/Referrals: Junior Pyle MD [Physician] - 1 Week ([place], UTI) aRheel,Jeffry Medina MD [Primary Care Provider] - Time of Disposition: 02:23
--- OUTSIDE RECORDS SUMMARY | 2025-01-31 23:42 | XMS_ITS | Encounter Summary ---
Author Organization [facility] Facility Care Team Providers Care Internal Sales Engineer Name Role Phone Shemar Pickering MD Primary Care Provider + Shemar Pickering MD Primary Care Provider + Shemar Pickering MD Primary Care Provider + Shemar Pickering MD Primary Care Provider + Shemar Pickering MD Unavailable Encounter Details Date Type Department Care Team (Latest Contact Info) Description 06/07/2016 Orders Only [facility]IN[facility] ProviderMeghana MD [address] [place] [id number] Social History Tobacco Use Types Packs/Day Years Used Date Smoking Tobacco: Every Day Comments:Smoking History Pac ks/day: 0.25 Packs Alcohol Use Standard Drinks/Week Comments No 0 (1 standard drink = 0.6 oz pur e alcohol) Comments Unknown Sex and Gender Information Value Date Recorded Sex Assigned at Not on file Legal Sex Female 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 us Historical Provider Final Res ult documented in this encounter Visit Diagnoses Not on filedocumented in this encounter Care Teams Internal Sales Engineer Relationship Specialty Start Date End Date Shemar Pickering MD [address] [place] [address] [place] [address] PCP - General 03/12/13 09/07/16 Shemar Pickering MD [address] [place] [address] [place] [address] PCP - General 09/08/16 09/20/16 Shemar Pickering MD [address] [place] [address] [place] [address] PCP - General 09/21/16 07/17/18 Shemar Pickering MD [address] [place] [address] [place] [address] PCP - General 07/18/18 Shemar Pickering MD [address] [place] [address] [place] [address] 07/18/18 documented as of this encounter
--- OUTSIDE RECORDS SUMMARY | 2025-01-31 23:42 | XMS_ITS | Clinical Summary ---
Author Organization [facility] Address [address] [place] [address] Care Team Providers Care Coil Repair Technician Name Role Phone Shemar Pickering MD Primary Care Provider [phone] Source Comments [facility],non-[facility] Affiliates and Associated Physician Practices is amultiple site organization consisting of ambulatory clinics and hospital sitesin [place], [place], [place] and [place]. This disclosure is being madepursuant to the Care Everywhere program and may not contain all information available regarding this patient. Last updated 18.[facility] [employer] Allergies No known active allergies Medications * [...] patient's age to complete this topic Insurance TalkSession TalkSession Care Teams Coil Repair Technician Relationship Specialty Start Date End Date Shemar Pickering MD PCP - General Internal Medicine 04/10/17
--- OUTSIDE RECORDS SUMMARY | 2025-01-31 23:42 | XMS_ITS | Clinical Summary ---
Author Organization [facility] Address [address] [place] [address] Care Team Providers Care Insurance Licensing Supervisor Name Role Phone Unavailable Primary Care Provider Unavailabl e Immunizations Immunization Administration Dates Next Due Covid-19, Mrna, Lnp-s, PF, 5 0 mcg/0.25 mL dose (Moderna) 05/11/2021 Social History Tobacco Use Types Packs/Day Years Used Date Smoking Tobacco: Never Assessed Comments Unknown Sex and Gender Information Value Date Recorded Sex Assigned at Not on file Legal Sex Female 11:13 AM ELECTRIC TAPE SLITTER Gender Identity Not on file Sexual Orientation [...]
--- OUTSIDE RECORDS SUMMARY | 2025-01-31 23:42 | XMS_ITS | Encounter Summary ---
Author Organization [facility] Facility Care Team Providers Care Salesperson Handbags Name Role Phone Shemar Pickering MD Primary Care Provider + Shemar Pickering MD Primary Care Provider + Shemar Pickering MD Primary Care Provider + Shemar Pickering MD Primary Care Provider + Shemar Pickering MD Unavailable [phone] Encounter Details Date Type Department Care Team (Latest Contact Info) Description 06/12/2016 Orders Only [facility] ProviderMeghana MD [address] [place] [address] Social History Tobacco Use Types Packs/Day Years Used Date Smoking Tobacco: Every Day Comments:Smoking History Pac ks/day: 0.25 Packs Alcohol Use Standard Drinks/Week Comments No 0 (1 standard drink = 0.6 oz pur e alcohol) Comments Unknown Sex and Gender Information Value Date Recorded Sex Assigned at Not on file Legal Sex Female 7:04 PM DIESEL INSTRUCTOR Gender Identity Not on file Sexual Orientation Not on file documented as of this encounter Plan of Treatment Not on file documented as of this encounter Procedures Procedure Name Priority Date/Time Associated Diagnosis Comments PROCEDURE - RESULT 06/12/2016 12 :00 AM DIESEL INSTRUCTOR PROCEDURE - RESULT 06/07/2016 12 :00 AM DIESEL INSTRUCTOR documented in this encounter Results * PROCEDURE - RESULT (06/12/2016 12:00 AM DIESEL INSTRUCTOR) Narrative 06/12/2016 12:00 AM DIESEL INSTRUCTOR Ordered by an unspecified provider. Historical Provider Final Res ult * PROCEDURE - RESULT (06/07/2016 12:00 AM DIESEL INSTRUCTOR) Narrative 06/07/2016 12:00 AM DIESEL INSTRUCTOR Ordered by an unspecified provider. Historical Provider Final Res ult documented in this encounter Visit Diagnoses Not on filedocumented in this encounter Care Teams Salesperson Handbags Relationship Specialty [place] [address] [place] [address] L[place] QUINN [id number] PCP - General 03/12/13 09/07/16 Shemar Pickering MD [address] [place] [address] [place]N [address] PCP - General 09/08/16 09/20/16 Shemar Pickering MD [address] [place] [address] [place]N [id number] PCP - General 09/21/16 07/17/18 Shemar Pickering MD [address] [place] [address] L[place] QUINN [address] PCP - General 07/18/18 Shemar Pickering MD [address] [place] [address] L[place] QUINN [id number] 07/18/18 documented as of this encounter
--- OUTSIDE RECORDS SUMMARY | 2025-01-31 23:43 | XMS_ITS | Clinical Summary ---
Author Organization [facility] Address [address] [place] [address] Care Team Providers Care Clerical Aide Teacher Name Role Phone Shemar Pickering MD Primary Care Provider + Shemar Pickering MD Unavailable [phone] Allergies Active Allergy Reactions Criticality Noted Date [...] needed Assessment & Plan (05/09/2023 7:45 AM VIDEO PRODUCER): Dysphagia for the past few months. 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 Hx Other Medical psychiatric dis order/mild depression; [...] on file Legal Sex Female 7:04 PM VIDEO PRODUCER Gender Identity Not on file Sexual Orientation Not on file Obstetrics History Last Filed Vital Signs Vital Sign Reading Time Taken Comments Blood Pressure 140/82 06/04/2024 8:38 AM VIDEO PRODUCER Pulse 110 06/04/2024 8:38 AM VIDEO PRODUCER Temperature 36.2 C (97.1 F) 04/21/2024 7:58 AM CDT Respiratory Rate 20 06/04/2024 8:38 AM VIDEO PRODUCER Oxygen Saturation 96% 06/04/2024 8:38 AM VIDEO PRODUCER Inhaled Oxygen Concentration - - Weight 102.1 kg (225 lb) 06/04/2024 8:38 AM VIDEO PRODUCER Height 165.1 cm (5' 5) 06/04/2024 8:38 AM VIDEO PRODUCER Body Mass Index 37.44 06/04/2024 8:38 AM VIDEO PRODUCER Plan of Treatment Health Maintenance Due Date [...] Screening-Colonoscopy 04/21/20292023 Medical Devices Implanted Type Area Ferruler Device Identifier Shelf Expiration Date Model / [...] Fritz MD - 04/21/2024 7:30 AM CDT [facility] ENDOSCOPY Patient Name: Nevin Licea Procedure Date: 04/21/2024 7:30 AM Date of : 1980 Admit Type: Outpatient Age: 44 Gender: Female Attending MD: Jose Fritz M.D. Room: [facility] ENDOSCOPY ROOM 06 Note Status: Finalized Procedure: [...] The scope was passed under direct vision.The [id number] was introduced through theanus and advanced to [...] On: 04/21/2024 7:30 AM Recognized by the [employer] for promoting quality in endoscopy Jose Fritz MD ENDOSCOPY PROCEDURES Final Resul t * HM MAMMOGRAPHY (11/28/2015) [facility] Signature Mammogram Normal Comment:Next screening at ag e 39 Historical Provider HEALTH MAINTENANCE Final Result from Last 3 Months or Most Recently Relevant to Health Maintenance Insurance [place] [id number] [facility] [id number] [facility] [id number] Care Teams Clerical Aide Teacher Relationship Specialty Start Date End Date Shemar Pickering MD [address] [place] [address] PCP - General 07/18/18 Shemar Pickering MD [address] [place] [address] 07/18/18
[2025-01-31] MEDS: ONDANSETRON INJ 4 MG/2 ML VIAL IV PUSH (23:55)
[2025-01-31] MEDS: MORPHINE SULFATE (*CRX) 4 MG/ML INJ IV PUSH (23:55)
[2025-01-31] MEDS: LACTATED RINGERS 1,000 ML 999 ML IV CONT (23:56)
[2025-02-01] VITALS (11 sets, daily range): BP systolic 124–155; BP diastolic 84–92; O2SAT 98–100
[2025-02-01] MEDS: cefTRIAXone 1 GM in SODIUM CHLORIDE 0.9% IV 50 ML 100 ML IVPB (02:30)
[2025-02-01] MEDS: TAMSULOSIN HCL 0.4 MG CAPSULE PO (02:30)
== END 2025-02-01 02:35 | disposition home or self-care (01) ==
PROVIDERS: Emergency Provider Student in an Organized Health Care Education/Training Program; PCP Internal Medicine
DX: N39.0 Urinary tract infection, site not specified (principal); N20.0 Calculus of kidney; Z90.49 Acquired absence of other specified parts of digestive tract
CPT/HCPCS: 36415; 74177; 80053; 81001; 81025; 83690; 85025; 87086; 96361; 96374; 96375; 99284; A9270; J0696; J2270; J2405; J7120; Q9967

== ENCOUNTER 2025-02-15 20:47 | Emergency (ER) | payer OTHER, SELFPAY ==
--- NOTE | ~2025-02-15 | CT_ITS ---
EXAMINATION: CT abdomen pelvis w con DATE: 02/16/2025 01:26 INDICATION: Right-sided abdominal pain TECHNIQUE: Computed tomography (CT) of the abdomen and pelvis was performed without intravenous contrast. The dose-length product was 1619.46 mGy-cm. Automated exposure control and iterative reconstruction technique were employed. COMPARISON: CT dated 01/31/2025 FINDINGS: There is dependent atelectasis. Heart size normal. Fatty infiltration of the liver. Status post cholecystectomy. The spleen, pancreas, adrenal glands and kidneys are unremarkable. There is an IUD in the uterus. No significant vascular abnormality. No lymphadenopathy. Mild lumbar spondylosis. No acute osseous abnormality. No free air or free fluid. IMPRESSION: 1. No acute abdominal abnormality. Reviewed, dictated and finalized at location O.
[2025-02-15 21:01] VITALS: BP 149/108; PULSE 103; RESP 20; TEMP 37.1; O2SAT 98
[2025-02-15 22:00] VITALS: PULSE 104; RESP 23; O2SAT 93
[2025-02-15 22:14] VITALS: BP 156/90; PULSE 108; RESP 25; O2SAT 91
[2025-02-15 22:14] LABS: Hematocrit 42.9 % (37.0-47.0); Hemoglobin 14.4 g/dL (12.0-15.0); Immature Granulocyte Percent A 0.7 % (0-0.5); Lymphocytes Absolute Auto 3.33 K/mm3 (0.9-3.2); Mean Corpuscular HGB Conc 33.6 g/dl (32-36); Mean Corpuscular Hemoglobin 30.0 pg (26-34); Mean Corpuscular Volume 89.4 fl (80-100); Nucleated Red Blood Cells Absolute Auto 0.000 K/mm3 (0.0-0.012); Nucleated Red Blood Cells Perc 0.0 % (0.0-0.2); Platelet Count Result 441 k/mm3 (150-375); Red Blood Count 4.80 M/mm3 (4.2-5.4); White Blood Count 12.1 K/mm3 (4.5-10.0)
[2025-02-15 22:15] VITALS: PULSE 104; RESP 20; O2SAT 93
[2025-02-15] MEDS: ONDANSETRON INJ 4 MG/2 ML VIAL IV PUSH (22:15)
[2025-02-15] MEDS: MORPHINE SULFATE (*CRX) 4 MG/ML INJ IV PUSH (22:15)
[2025-02-15 22:23] LABS: Add Urine Microscopic? YES; Appearance Urine Cloudy (Clear); Glucose Urine UA Negative (Negative); Leukocyte Esterase Ur Trace LEU/UL (Negative); Nitrate Urine Negative (Negative); Non Pathogenic Casts 0-2; Specific Grav Ur 1.006 (1.001-1.035)
[2025-02-15 22:27] LABS: SPREG INTERNAL CONTROL Positive; Serum Qual hCG Negative
[2025-02-15 22:28] LABS: Potassium 4.2 mmol/L (3.4-5.0)
[2025-02-15 22:29] LABS: Alanine Aminotransferase 24 U/L (6-35); Albumin Level 4.4 g/dL (3.5-5.1); Alkaline Phosphatase 75 U/L (38-126); Anion Gap 7 mmol/L (4-12); Aspartate Amino Transferase 26 U/L (14-36); Bilirubin,Total 0.4 mg/dL (0.2-1.3); Blood Urea Nitrogen 16 mg/dL (7-17); Calcium 10.6 mg/dL (8.4-10.2); Carbon Dioxide 26 mmol/L (22-30); Chloride 103 mmol/L (98-107); Estimated CRCL calculation 98 ml/min; Estimated Glomerular Filt Rate > 60; Glucose 99 mg/dL (65-110); Lipase 63 U/L (23-300); Magnesium 2.0 mg/dL (1.6-2.3); Sodium 136 mmol/L (137-145); Total Protein 7.5 g/dL (6.3-8.2)
--- NOTE | 2025-02-15 23:52 | ED.FEMALEGU ---
HPI - Female Genitourinary General Chief complaint: Urogenital-Female Stated complaint: kidney stone Time Seen by Provider: 02/15/25 21:58 History of Present Illness HPI Narrative: Patient is a 44-year-old female who presents emergency department this evening with multiple complaints. Patient is approximately 15 days ago she came here and also she has a small stone on the right side. Patient does not believe that she passed the stone yet. States that she feels that she can not fully empty her bladder and is complaining of a headache to the left side of her head as well. States that she just feels terrible and has pain everywhere. Denies any sick contacts at home. Denies any fevers or chills. Denies any nausea vomiting or diarrhea. Related Data Home Medications ?Medication ?Instructions ?Recorded ?Confirmed ?Last Taken ?Type escitalopram oxalate 10 mg tablet 20 mg DAILY 01/31/25 Unknown History Allergies Allergy/AdvReac Type Severity Reaction Status Date / Time No Known Allergies Allergy Unknown Verified 02/15/25 21:15 Review of Systems Review of Systems: All systems are reviewed and are negative unless stated otherwise in the HPI. [facility] Family History Family History Mother Hypertension Grandparent Diabetes mellitus Social History Social History Alcohol intake: current Exam Narrative: General: Alert, awake, afebrile, in no acute distress. HEENT: PERRL, no rhinorrhea, no post nasal drip, oropharynx clear. Neck: Trachea midline, no JVD, no lymphadenopathy. Cardiovascular: Regular rate and rhythm, no murmurs, rubs or gallops, no peripheral edema. Respiratory: Clear to auscultation bilaterally, no tachypnea, no wheezing, no rhonchi, no rubs, no respiratory distress. Abdomen: Soft, nontender, nondistended, no rebound, no guarding, no peritoneal signs. Musculoskeletal: No joint swelling or deformity, normal muscle tone. Skin: No rashes or petechia, no signs of infection. Psychiatric: Alert and oriented, normal behavior and judgment for situation. Neurological: Alert and oriented to person, place, and time. Follows all commands. No focal deficits, speech is clear and fluent. Course Vital Signs Vital signs: Vital Signs Temperature 98.7 F 02/15/25 21:01 Pulse Rate 103 H 02/15/25 21:01 Respiratory Rate 20 02/15/25 21:01 Blood Pressure 149/108 H 02/15/25 21:01 Pulse Oximetry 98 02/15/25 21:01 Oxygen Delivery Room Air 02/15/25 21:01 Temperature 98.7 F 02/15/25 21:01 Pulse Rate 104 H 02/15/25 22:15 Respiratory Rate 20 02/15/25 22:15 Blood Pressure 156/90 H 02/15/25 22:14 Pulse Oximetry 93 02/15/25 22:15 Oxygen Delivery Room Air 02/15/25 21:01 MDM - Female Genitourinary MDM Narrative Medical decision making narrative: The patient was evaluated by myself in the emergency department. History is obtained from patient who is an independent historian and physical exam was performed. External medical records were reviewed at this time. IV was established and pertinent tests were ordered. Patient was administered 4 mg of IV morphine for pain and 4 mg IV Zofran for nausea with improvement of her stomach pain. Patient was also administered a migraine cocktail consistent of 1 L IV fluid bolus with normal saline, 50 mg of IV Toradol, 10 mg IV Reglan and 25 mg IV Benadryl with improvement of her headache. Laboratory results obtained revealing no acute process. Urinalysis unremarkable. Imaging studies obtained included CT abdomen pelvis with IV contrast which was independently interpreted by me revealing no acute process, which is pending final radiology interpretation. Differential diagnosis considerations include kidney stone, biliary colic, pyelonephritis, UTI, gastroenteritis. Comorbidities impacting this visit include recent diagnosis of kidney stone. I have evaluated and discussed social determinants of health with the patient that could potentially impact subsequent diagnosis and treatment plans. On repeat assessment of the patient, reevaluation revealed that the patient is doing well and is in no acute distress. Patient symptoms have improved since she arrived to our emergency department. Repeat vital signs were all reviewed and noted to be stable. Differential diagnosis and treatment plan were discussed with the patient at bedside. Patient agrees with discussion and after shared medical decision making agrees with discharge. All questions were answered to the patient's satisfaction. Patient will follow up with PCP/ Urology in 3-5 days. Patient was provided with strict return precautions and instructed to return to the emergency department if any new or worsening symptoms develop. The patient was discharged in stable condition. Lab Data 02/15/25 22:08 02/15/25 22:08 Labs: Lab Results 02/15/25 02/15/25 Range/Units 22:08 22:13 WBC 12.1 H (4.5-10.0) K/mm3 RBC 4.80 (4.2-5.4) M/mm3 Hgb 14.4 (12.0-15.0) g/dL Hct 42.9 (37.0-47.0) % MCV 89.4 (80-100) fl MCH 30.0 (26-34) pg MCHC 33.6 (32-36) g/dl RDW 13.1 (11.5-14.5) % Plt Count 441 H (150-375) k/mm3 MPV 9.5 (7.4-10.4) fl Immature Gran % (Auto) 0.7 H (0-0.5) % Neut % (Auto) 60.7 (45.5-73.1) % Lymph % (Auto) 27.5 (18.3-44.2) % [place] % (Auto) 8.2 (2.6-8.5) % Eos % (Auto) 2.2 (0-4.4) % Baso % (Auto) 0.7 (0.2-1.2) % Lymph # (Auto) 3.33 H (0.9-3.2) K/mm3 [place] # (Auto) 1.0 H (0.1-0.6) K/mm3 Eos # (Auto) 0.3 (0-0.3) K/mm3 Baso # (Auto) 0.1 (0.0-0.1) K/mm3 Abs Immat Gran (auto) 0.08 H (0.00-0.031) K/mm3 Absolute Neuts (auto) 7.4 H (1.3-6.7) K/mm3 Absolute Nucleated RBC 0.000 (0.0-0.012) K/mm3 Nucleated RBC % 0.0 (0.0-0.2) % Sodium 136 L (137-145) mmol/L Potassium 4.2 (3.4-5.0) mmol/L Chloride 103 (98-107) mmol/L Carbon Dioxide 26 (22-30) mmol/L Anion Gap 7 (4-12) mmol/L BUN 16 (7-17) mg/dL Creatinine 0.79 (0.7-1.0) mg/dL Estim Creat Clear Calc 98 ml/min Estimated GFR > 60 (59 - ) Glucose 99 (65-110) mg/dL Calcium 10.6 H (8.4-10.2) mg/dL Magnesium 2.0 (1.6-2.3) mg/dL Total Bilirubin 0.4 (0.2-1.3) mg/dL AST 26 (14-36) U/L ALT 24 (6-35) U/L Alkaline Phosphatase 75 (38-126) U/L Total Protein 7.5 (6.3-8.2) g/dL Albumin 4.4 (3.5-5.1) g/dL Lipase 63 (23-300) U/L Serum HCG, Qual Negative Urine Color Yellow (Yellow) Urine Appearance Cloudy H (Clear) Urine pH 6.5 (5.0-9.0) Ur Specific [place] 1.006 (1.001-1.035) Urine Protein Negative (Negative) mg/dL Urine Glucose (UA) Negative (Negative) mg/dL Urine Ketones Negative (Negative) mg/dL Ur Blood (Man) Trace (Negative) Urine Nitrate Negative (Negative) Urine Bilirubin Negative (Negative) Urine Urobilinogen 0.2 (<2.0) mg/dL Leukocyte Esterase Rfl Trace H (Negative) JONATAN/UL Urine RBC 0-2 (0-2) /hpf Urine WBC 0-5 (0-3) /hpf Ur Squamous Epith Cells None seen (Few) /hpf Urine Bacteria None seen /hpf Urine Casts 0-2 Discharge Plan Discharge Clinical Impression: Abdominal pain Patient Disposition: Home Condition: Improved Instructions: Antibiotic Form, Abdominal Pain (ED) Additional Instructions: Please follow-up with your family doctor within the next 3-5 days. You also recommended follow-up with urologist regarding urinary symptoms, call tomorrow to set up a follow-up appointment. Return to the ED if any new or worsening symptoms develop. Patient Language: Georgian Prescriptions: No Action ondansetron 4 mg tablet,disintegrating 4 mg PO Q8H PRN (Reason: nausea and vomiting) Qty: 10 0RF escitalopram oxalate 10 mg tablet 20 mg DAILY cefdinir 300 mg capsule 300 mg PO Q12H 7 Days Qty: 14 0RF ketorolac 10 mg tablet 10 mg PO Q8H PRN (Reason: pain) 5 Days Qty: 20 0RF Rx Instructions: maximum total duration of 5 days from all oral, intranasal, or parenteral formulations tamsulosin [Flomax] 0.4 mg capsule 0.4 mg PO DAILY Qty: 20 0RF ondansetron 4 mg tablet,disintegrating 4 mg PO Q8H PRN (Reason: nausea and vomiting) Qty: 10 0RF Follow-up/Referrals: Raheel,Jeffry Medina MD [Primary Care Provider] - 3 Days Time of Disposition: 02:58
[2025-02-15] MEDS: METOCLOPRAMIDE HCL INJ 10 MG/2 ML VIAL IV PUSH (23:54)
[2025-02-15] MEDS: SODIUM CHLORIDE 0.9% IV 1,000 ML 999 ML IV CONT (23:54)
[2025-02-15] MEDS: KETOROLAC 15 MG/ML VIAL (*BKC) IV PUSH (23:55)
[2025-02-16] MEDS: MORPHINE SULFATE (*CRX) 2 MG/ML INJ IV PUSH (03:16)
[2025-02-16 03:21] VITALS: BP 124/78; PULSE 69; RESP 18; TEMP 36.9; O2SAT 97
== END 2025-02-16 03:22 | disposition home or self-care (01) ==
PROVIDERS: Emergency Provider Emergency Medicine; PCP Internal Medicine
DX: R10.9 Unspecified abdominal pain (principal); Z87.442 Personal history of urinary calculi
CPT/HCPCS: 36415; 74177; 80053; 81001; 83690; 83735; 84703; 85025; 96361; 96374; 96375; 99284; J1200; J1885; J2270; J2405; J2765; J7030; Q9967

== ENCOUNTER 2025-02-19 07:17 | Outpatient (CLI) | payer OTHER, SELFPAY ==
--- NOTE | ~2025-02-19 | CT_ITS ---
EXAMINATION: CT abdomen pelvis wo/w con DATE: 02/19/2025 07:52 INDICATION: Urinary tract infection TECHNIQUE: Computed tomography (CT) of the abdomen and pelvis was performed without intravenous contrast. The dose-length product was 2911.08 mGy-cm. Automated exposure control and iterative reconstruction technique were employed. COMPARISON: Comparison to multiple prior studies sequentially, with oldest reviewed study dated 08/22/2011. FINDINGS: Lung bases unremarkable. Heart size normal. No significant pleural or pericardial effusion. There is a 4 mm left lower lobe nodule, unchanged dating back to 08/22/2011, benign. There are cholecystectomy clips. Fatty infiltration of the liver. Small fat-containing umbilical hernia. Nonobstructing 3 mm right renal stone. No ureteral stones or hydronephrosis. There is an IUD in the uterus. There are cholecystectomy clips. Nonobstructive bowel gas pattern. Ureters are normal in course and caliber. No obstructing stones. The spleen, pancreas, adrenal glands and kidneys are unremarkable. No significant vascular abnormality. No lymphadenopathy. Bladder is grossly unremarkable. No abnormal pelvic masses or fluid collections. IMPRESSION: 1. Nonobstructing right nephrolithiasis. Reviewed, dictated and finalized at location O.
== END 2025-02-19 07:18 | disposition home or self-care (01) ==
PROVIDERS: PCP Nurse Practitioner Adult Health; Visit Provider Nurse Practitioner Adult Health
DX: Z00.01 Encounter for general adult medical examination with abnormal findings (principal); N39.0 Urinary tract infection, site not specified; R52 Pain, unspecified; N20.0 Calculus of kidney; G00.8 Other bacterial meningitis
CPT/HCPCS: 74178; Q9967

== ENCOUNTER 2025-03-30 11:15 | Outpatient (CLI) | payer OTHER, SELFPAY ==
--- NOTE | ~2025-03-30 | US_ITS ---
Clinical history:Pelvic pain. Confirm IUD. EXAM:Ultrasound pelvis complete TECHNIQUE:Multiple static grayscale and color Doppler transabdominal images of the pelvis were obtained. Comparisons:CT abdomen and pelvis 02/19/2025 FINDINGS: Uterus measures 9.9 x 3.6 x 5.4 cm. Endometrial stripe measures 5 mm. There is a 2.7 x 2.2 x 3.1 cm heterogeneous mass in the fundus of the uterus possibly a fundal uterine fibroid. Linear echogenic focus in the endometrial cavity with posterior shadowing suggestive of an IUD in the endometrial cavity. Right ovary measures 2.8 x 1.3 x 2.1 cm with color Doppler flow. Left ovary measures 2.6 x 2.4 x 2.7 cm with color Doppler flow. No free fluid in the pelvis. IMPRESSION: 1.Linear echogenic focus in the endometrial cavity with posterior shadowing suggestive of an IUD in the endometrial cavity. Correlate clinically. If continued concern, consider a CT for further assessment 2.There is a 2.7 x 2.2 x 3.1 cm heterogeneous mass in the fundus of the uterus which is favored to represent a fundal uterine fibroid. Reviewed, dictated and finalized at location Q. IMPRESSION: 1.Linear echogenic focus in the endometrial cavity with posterior shadowing sug gestive of an IUD in the endometrial cavity. Correlate clinically. If continued concern, consider a CT for further assessment 2.There is a 2.7 x 2.2 x 3.1 cm heterogeneous mass in the fundus of the uterus which is favored to represent a fundal uterine fibroid.
== END 2025-03-30 11:16 | disposition home or self-care (01) ==
LOC: MICIMG 11:17
PROVIDERS: PCP Nurse Practitioner Adult Health
DX: R10.20 Pelvic and perineal pain unspecified side (principal)
CPT/HCPCS: 76856

== ENCOUNTER 2025-04-05 15:32 | Outpatient (CLI) | payer OTHER, SELFPAY ==
--- NOTE | ~2025-04-05 | XR_ITS ---
EXAMINATION: XR abdomen/kub 1V, 04/05/2025 15:50 CDT HISTORY: kidney stone COMPARISON: No comparisons available. Technique: 3 view. Findings: Moderate fecal content, no dilated bowel loops. There are bilateral renal calculi the largest superior pole measuring 2 x 2 mm. No acute osseous abnormality. IUD overlying the pelvis. Impression: 1. No calculi detailed above Reviewed, dictated and finalized at location P. Impression: 1. No calculi detailed above
== END 2025-04-05 15:33 | disposition home or self-care (01) ==
LOC: MICIMG 15:33
PROVIDERS: PCP Urology; Visit Provider Urology
DX: N20.0 Calculus of kidney (principal); Z97.5 Presence of (intrauterine) contraceptive device
CPT/HCPCS: 74018

== ENCOUNTER 2025-04-19 00:51 | Day surgery (SDC) | payer OTHER, SELFPAY ==
--- NOTE | 2025-04-09 14:11 | SUR.PREOP ---
[facility] has started construction of its new state of the art ER which will open Spring 2026. With this, we anticipate parking may be a challenge for some our surgical patients and families. Parking spaces are limited but are available for all Surgical, obstetrics, and ER patients sharing this lot. If you arrive and find you are having a hard time finding a parking space, please note that we understand the challenges, please drive around the hospital and park near Hospital Entrance 1. When you enter this entrance, you can ask a volunteer to direct or take you back to the surgical waiting area to check in. We appreciate everyone?s understanding of these expected challenges while we build for your future. Report to the Outpatient Waiting Room, entrance under the green pavilion located off [address], at time __6AM__ on date _04/19/25___. Planned Procedure Time: __730AM__.? Time changes happen often and if your time is changed the preop area will call you the afternoon before. - You and your visitor will be asked to self-screen and do not enter if you have any COVID symptoms. Please call surgeon if you need to reschedule. - A mask is optional within the hospital at this time. Patients may have clear liquids (water, carbonated beverages, clear teas, apple juice) until 3 hours prior to surgery with a maximum of 20 ounces. - No food from midnight until time of surgery and no smoking, or chewing tobacco (or any form of nicotine). No chewing gum, candy or mints. Take only the following medications with a SIP of water on the morning of surgery: __buspirone, escitalopram, gabapentin, ondansetron DO NOT STOP ANY OF YOUR OTHER PRESCRIPTION MEDICATIONS PRIOR TO SURGERY EXCEPT THE FOLLOWING Hold all vitamins and supplements for 3 days per anesthesiologist. Medications to discontinue per physician __none Date to take last dose of vitamins_04/15/25 Please no make-up, nail turkmen, hairspray, perfume, deodorant, or body powder the day of surgery.? No jewelry (including any body piercings) or valuables the day of surgery, leave them at home.? Please take a shower or bath the night before, or the morning of, surgery with an antibacterial soap.? Wear comfortable, loose fitting clothing.? - Jewelry must be removed prior to entering the operating room.? Rings and piercings that are not removed may be cut off. - The hospital will not accept responsibility for valuables.? - Please leave all valuables, including medications, at home the day of surgery. If you are going home after surgery, a licensed wheelchair van driver must drive you home.? - NO public transportation without another adult if you receive anesthesia. - We recommend that an adult stay with you for 24 hours following discharge. - We also recommend that you do not drive, make important decision, drink alcoholic beverages, or take any drugs that were not prescribed by your health care provider for at least 24 hours after your discharge time. Follow any additional instructions given to you from your surgeon. Telephone instructions given to __Amanda____and asked if any additional questions and then verbalized understanding. Patient advised to call surgeon office or pre surgery nurse liaison [phone] if any additional questions.
[2025-04-09 14:39] VITALS: BMI 41.6
--- OUTSIDE RECORDS SUMMARY | 2025-04-19 00:54 | XMS_ITS | Clinical Summary ---
Author Organization [facility] Address [address] [place] [address] Care Team Providers Care Hearing Therapy Director Name Role Phone Shemar Pickering MD Primary Care Provider [phone] Source Comments [facility],non[facility] Affiliates and Associated Physician Practices is amultiple site organization consisting of ambulatory clinics and hospital sitesin [place], [place], [place] and [place]. This disclosure is being madepursuant to the Care Everywhere program and may not contain all information available regarding this patient. Last updated 18.[facility] Hired Allergies No known active allergies Medications * [...] VACCINE (1 - 3-dose SCDM series) 2006 DEPRESSION SCREENING 06/24/2024 COVID-19 VACCINE (1 - 2023-2 5 season) 2025 INFLUENZA VACCINE (#1) 2025 ZOSTER VACCINE (1 [...] patient's age to complete this topic Insurance [employer] Care Teams Hearing Therapy Director Relationship Specialty Start Date End Date Shemar Pickering MD PCP - General Internal Medicine 04/10/17
--- OUTSIDE RECORDS SUMMARY | 2025-04-19 00:54 | XMS_ITS | Encounter Summary ---
Author Organization [facility] Care Team Providers Care Knit Goods Mender Name Role Phone Shemar Pickering MD Primary Care Provider + Shemar Pickering MD Primary Care Provider + Shemar Pickering MD Primary Care Provider + Shemar Pickering MD Primary Care Provider + Shemar Pickering MD Unavailable [phone] Encounter Details Date Type Department Care Team (Latest Contact Info) Description 06/12/2016 Orders Only [facility]INCON[facility] Provider, MD Meghana [address] [place] [id number] Social History Tobacco Use Types Packs/Day Years Used Date Smoking Tobacco: Every Day Comments:Smoking History Pac ks/day: 0.25 Packs Alcohol Use Standard Drinks/Week Comments No 0 (1 standard drink = 0.6 oz pur e alcohol) Comments Unknown Sex and Gender Information Value Date Recorded Sex Assigned at Not on file Legal Sex Female 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 us Historical Provider Final Res ult * PROCEDURE - RESULT (06/07/2016 12:00 AM SAP PLANT MAINTENANCE CONSULTANT) Narrative 06/07/2016 12:00 AM SAP PLANT MAINTENANCE CONSULTANT Ordered by an unspecified provider. us Historical Provider Final Res ult documented in this encounter Visit Diagnoses Not on filedocumented in this encounter Care Teams Knit Goods Mender Relationship Specialty [place] [address] [place] [address] LENNY QUINN [address] PCP - General 03/12/13 09/07/16 Shemar Pickering MD [address] [place] [address] LEN[place] QUINN [address] PCP - General 09/08/16 09/20/16 Shemar Pickering MD [address] [place] [address] LENNY QUINN [address] PCP - General 09/21/16 07/17/18 Shemar Pickering MD [address] [place] [address] LENNY QUINN [address] PCP - General 07/18/18 Shemar Pickering MD [address] [place] [address] LENNY QUINN [address] 07/18/18 documented as of this encounter
--- OUTSIDE RECORDS SUMMARY | 2025-04-19 00:54 | XMS_ITS | Encounter Summary ---
Author Organization [facility] Facility Care Team Providers Care Machine Overhauler Name Role Phone Shemar Pickering MD Primary Care Provider + Shemar Pickering MD Primary Care Provider + Shemar Pickering MD Primary Care Provider + Shemar Pickering MD Primary Care Provider + Shmear Pickering MD Unavailable [phone] Encounter Details Date Type Department Care Team (Latest Contact Info) Description 06/07/2016 Orders Only [facility] CLINCONV ProviderMeghana MD [address] [place] [address] Social History Tobacco Use Types Packs/Day Years Used Date Smoking Tobacco: Every Day Comments:Smoking History Pac ks/day: 0.25 Packs Alcohol Use Standard Drinks/Week Comments No 0 (1 standard drink = 0.6 oz pur e alcohol) Comments Unknown Sex and Gender Information Value Date Recorded Sex Assigned at Not on file Legal Sex Female 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 us Historical Provider Final Res ult documented in this encounter Visit Diagnoses Not on filedocumented in this encounter Care Teams Machine Overhauler Relationship Specialty Start Date End Date Shemar Pickering MD [address] [place] [address] [place] [address] PCP - General 03/12/13 09/07/16 Shemar Pickering MD [address] [place] [address] [place] [address] PCP - General 09/08/16 09/20/16 Shemar Pickering MD [address] [place] [address] [place] [address] PCP - General 09/21/16 07/17/18 Shemar Pickering MD [address] [place] [address] [place] [address] PCP - General 07/18/18 Shemar Pickering MD [address] [place] [address] [place] [address] 07/18/18 documented as of this encounter
--- OUTSIDE RECORDS SUMMARY | 2025-04-19 00:54 | XMS_ITS | Clinical Summary ---
Author Organization [facility] Address [address] [place] [address] Care Team Providers Care Master Cosmetologist Name Role Phone Unavailable Primary Care Provider Unavailabl e Immunizations Immunization Administration Dates Next Due Covid-19, Mrna, Lnp-s, PF, 5 0 mcg/0.25 mL dose (Moderna) 05/11/2021 Social History Tobacco Use Types Packs/Day Years Used Date Smoking Tobacco: Never Assessed Comments Unknown Sex and Gender Information Value Date Recorded Sex Assigned at Not on file Legal Sex Female 11:13 AM RN SANE Gender Identity Not on file Sexual Orientation Not on file Plan of Treatment Health Maintenance Due Date Last Done Comments Hepatitis C Virus (HCV) Screening 1979 Hepatitis B Immunization (1 of 3 - 19+ 3-dose series) 1998 Pap Smear 2000 Human Papillomavirus (HPV) Immunization (1 - 3-dose SCDM series) 2006 Cervical Cancer Screening (CCS) 2009 HPV/Cotest 2009 Cologuard 2024 Colonoscopy 2024 Colorectal Cancer Screening 2024 Immunochemical Fecal Occult Blood 2024 Influenza Immunization (#1) 2025 09/3 , 04/26/2018, 05/02/2016, Additional history exists SARS-COV-2 Immunization (2024- season) 2025 05/11/2021, 09/08/2020, 08/11/2020 Respiratory Syncytial Virus (RSV) Immunization (Adult) (1 [...]
--- OUTSIDE RECORDS SUMMARY | 2025-04-19 00:54 | XMS_ITS | Clinical Summary ---
Author Organization [facility] Address [address] [place] [address] Care Team Providers Care Emergency Spill Response Technician Name Role Phone Unavailable Primary Care Provider Unavailabl e Allergies No known active allergies Medications sulfamethoxazole -trimethoprim (BACTRIM DS) 800-160 mg tablet Take 1 Tablet by mouth 2 times daily. 10 Tablet 1 03/03/2025 Active Active Problems No known active problems Encounters Date Type Department Care Team Description 04/13/2025 External Device Data [facility] ABSTRACTION Provider, Abstract 04/06/2025 External Device Data [facility] Provider, Abstract 04/06/2025 External Device Data [facility] Provider, Abstract 03/10/2025 External Device Data [facility] Provider, Abstract 03/09/2025 External Device Data [facility] Provider, Abstract 03/09/2025 External Device Data [facility] ABSTRACTION Provider, Abstract 03/03/2025 9:00 AM CDT Office Visit [facility] [address] [place] [address] Rafa Cooney MD Nephrolithiasis (Primary Dx); Lower abdominal pain; Dysuria 03/03/2025 8:03 AM CDT - 03/03/2025 11:59 PM CDT Hospital Encounter [facility] [address] [place] [address] Deborah Mayes FNP Discharge Disposition: Home or Self Care 03/01/2025 Orders Only [facility] [address] [place] [address] Deborah Mayes [facility] Nephrolithiasis (Primary Dx) from Last 3 Months Social History Tobacco Use Types Packs/Day Years Used Date Smoking Tobacco: Never Passive Smoke Exposure: Never Smokeless Tobacco: Never Tobacco Cessation:Counseling Given: Yes Alcohol Use Standard Drinks/Week Comments Not Currently 0 (1 standard drink = 0.6 oz pur e alcohol) Comments Unknown Sex and Gender Information Value Date Recorded Sex Assigned at Not on file Legal Sex Female 10:42 AM CDT Gender Identity Not on file Sexual Orientation Not on file Plan of Treatment Health Maintenance Due Date Last Done Comments Pre-Diabetes and Diabetes Screening 1979 HEPATITIS B VACCINES (1 of 3 - 19+ 3-dose series) 1998 HPV/Cotest (21-29) 2000 CERVICAL CANCER SCREENING 2009 HPV/Cotest (30-65) 2009 PAP SMEAR 2009 BREAST CANCER SCREENING 2019 11/28/19 16, 01/28/2015, 01/20/2015 DTAP/TDAP/TD VACCINES (7 - Td or Tdap) 12/19/2020 12/19/2010, 02/03/1993, 01/28/1985, Additional history exists FIT-DNA Q 3 years 2024 FIT/FOBT Q 1 year 2024 Flex Sig/CT Colonography Q 5 years 2024 INFLUENZA VACCINE (#1) 2025 05/02/2016, 2012 COVID-19 Vaccine ( season) 2025 05/11/2021 COLORECTAL SCREENING 04/21/2034 04/21/2024, 04/21/20 24 Colorectal Cancer Screening 04/21/2034 HPV VACCINES Aged Out No longer eligi ble based on patient's age to complete this topic Procedures Procedure Name Priority Date/Time Associated Diagnosis Comments XR ABDOMEN 1 VW Routine 03/03/2025 8:15 AM CDT Nephrolithiasis from Last 3 Months Results * XR ABDOMEN 1 VW (03/03/2025 8:15 AM CDT) Anatomical Region Laterality Modality Abdomen Computed Radiogr aphy 03/03/2025 8:15 AM CDT Impressions 03/03/2025 8:38 AM CDT IMPRESSION: Right nephrolithiasis. DICTATION LOCATION: Location 4 Narrative 03/03/2025 8:38 AM CDT Examination: XR ABDOMEN 1 VW DATE: 03/03/2025 8:15 AM CLINICAL INDICATION: See Diagnosis. Nephrolithiasis COMPARISON: None available. TECHNIQUE/FINDINGS: The visualized intestinal pattern is nonspecific without evidence of ileus or obstruction. There is no definite radiographic evidence of free air. There is a 4 mm radiodensity superimposed on the right kidney. Cholecystectomy clips. Intrauterine device noted. Procedure Note Fer Alfonso MD - 03/03/2025 Examination: XR ABDOMEN 1 VW DATE: 03/03/2025 8:15 AM CLINICAL INDICATION: See Diagnosis. Nephrolithiasis COMPARISON: None available. TECHNIQUE/FINDINGS: The visualized intestinal pattern is nonspecific without evidence of ileus or obstruction. There is no definite radiographic evidence of free air. There is a 4 mm radiodensity superimposed on the right kidney. Cholecystectomy clips. Intrauterine device noted. IMPRESSION: Right nephrolithiasis. DICTATION LOCATION: Location 4 [facility] ORDERABLES Final Result from Last 3 Months Insurance [facility] [employer]
--- OUTSIDE RECORDS SUMMARY | 2025-04-19 00:55 | XMS_ITS | Clinical Summary ---
Author Organization [facility] Address [address] [place] [address] Care Team Providers Care Molder Punch Name Role Phone Shemar Pickering MD Primary Care Provider + Shemar Pickering MD Unavailable [phone] Allergies Active Allergy Reactions Criticality Noted Date [...] hours if needed. 9 tablet 2 02/07/20 Active Additional Information Patient not taking.Reported on 06/04/2024 lidocaine (XYLOCAINE) 5 % ointmentIndicat ions:Small fiber neuropathy Apply topically nightly as needed for pain 35 g 3 02/07/20 Active carBAMazepine XR (TEGretol XR) 400 mg 12 hr tablet Take 1 tablet (400 mg total) by mouth 2 (two) times a day 60 tablet 2 02/07/20 Active Additional Information Patient not taking.Reported on 06/04/2024 nitrofurantoin monohydrate (MACROBID) 100 mg capsule TAKE 1 CAPSULE BY MOUTH TWICE DAILY FOR 7 DAYS 05/17/20 Active escitalopram (LEXAPRO) 20 mg tablet Take [...] needed Assessment & Plan (05/09/2023 7:45 AM MARINE INSURANCE CLAIM EXAMINER): Dysphagia for the past few months. 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 Other Medical psychiatric dis order/mild depression; [...] on file Legal Sex Female 7:04 PM MARINE INSURANCE CLAIM EXAMINER Gender Identity Not on file Sexual Orientation Not on file Obstetrics History Last Filed Vital Signs Vital Sign Reading Time Taken Comments Blood Pressure 140/82 06/04/2024 8:38 AM MARINE INSURANCE CLAIM EXAMINER Pulse 110 06/04/2024 8:38 AM MARINE INSURANCE CLAIM EXAMINER Temperature 36.2 C (97.1 F) 04/21/2024 7:58 AM CDT Respiratory Rate 20 06/04/2024 8:38 AM MARINE INSURANCE CLAIM EXAMINER Oxygen Saturation 96% 06/04/2024 8:38 AM MARINE INSURANCE CLAIM EXAMINER Inhaled Oxygen Concentration - - Weight 102.1 kg (225 lb) 06/04/2024 8:38 AM MARINE INSURANCE CLAIM EXAMINER Height 165.1 cm (5' 5) 06/04/2024 8:38 AM MARINE INSURANCE CLAIM EXAMINER Body Mass Index 37.44 06/04/2024 8:38 AM MARINE INSURANCE CLAIM EXAMINER Plan of Treatment Health Maintenance Due Date Last Done Comments Cervical Cancer Screening 1979 Hepatitis C Screening 1980 Hepatitis B Screening 1997 Regular Well Visit/Exam 18-64 1997 Pneumococcal vaccine <65 (1 of 2 - PCV) 1998 Breast Cancer Screening-Mammogram 11/27/2016 11/28/2015, 11/28/2015, 01/28/2015, Additional history exists Depression Screening 02/18/2018 02/18/2017 DTaP/Tdap/Td Vaccine (7 - Td or Tdap) 12/19/2020 12/19/2010, 02/03/1993, 01/28/1985, Additional history exists Covid-19 Vaccine ( season) 2025 05/09/2023, 03/30/2022, 05/11/2021, Additional history exists Influenza Vaccine (#1) 2025 , 03/30/2022, 03/23/2021, Additional history exists Colon Cancer Screening-Colonoscopy 04/21/2029 04/21/2024 HPV Vaccines Aged Out No longer eligi ble based on patient's age to complete this topic Medical Devices Implanted Type Area Sales Executive Insurance Device Identifier Shelf Expiration Date Model / Serial / Lot Plate Plate Left: Foot Screw Screw Left: Foot Procedures Procedure Name Priority Date/Time Associated Diagnosis Comments EGFR Routine 02/26/2025 11:43 AM CDT DIFFERENTIAL AUTO Routine 02/26/2025 11: 43 AM CDT VITAMIN D 25 HYDROXY Routine 02/26/2025 11:43 AM CDT TSH Routine 02/26/2025 11:43 AM CDT T4, FREE Routine 02/26/2025 11:43 AM CDT COMPREHENSIVE METABOLIC PANEL Routine 02/26/2025 11:43 AM CDT LIPID PANEL Routine 02/26/2025 11:43 AM CDT CBC WITH AUTO DIFFERENTIAL Routine 02/26/2025 11:43 AM CDT URINALYSIS, MICROSCOPIC ONLY Routine 02/26/2025 11:35 AM CDT N. GONORRHOEAE/C. TRACHOMATIS AMPLIFICATION Routine 02/26/2025 11:35 AM CDT URINALYSIS AND REFLEX TO MICROSCOPIC AND CULTURE Routine 02/26/2025 11:35 AM CDT COLONOSCOPY 04/21/2024 7:30 AM CDT HM MAMMOGRAPHY Routine 11/28/2015 from Last 3 Months or Most Recently Relevant to Health Maintenance Results * eGFR (02/26/2025 11:43 AM CDT) eGFR >90 >=60 mL/min/1. 73 m2 Comment: Interpretive Data Reference Interval Normal >/= 90 mL/min/1.73m2 Mildly decreased* 60 - 89 mL/min/1.73m2 Mildly to moderately decreased 45 - 59 mL/min/1.73m2 Moderately to severely decreased 30 - 44 mL/min/1.73m2 Severely decreased 15 - 29 mL/min/1.73m2 Kidney Failure < 15 mL/min/1.73m2 *Relative to young adult level Estimated glomerular filtration rate is determined by the 2020 CKD-EPI equation recommended by the National Kidney Foundation (A Unifying Approach to GFR Estimation: Recommendations of the NKF-ASK Task Force on Reassessing the Inclusion of Race in Diagnosing Kidney Disease, JASN 202). The CKD-EPI equation should not be used for patients with unstable renal function and has not been validated in children and those over 70. Current interpretive data was last reviewed 2021. Blood 02/26/2025 11:4 3 AM CDT 02/26/2025 11:49 AM CDT Shemar Pickering MD LAB BLOOD ORDERABLES Fin al Result [facility] [address] Department [place] [address] * Differential, auto (02/26/2025 11:43 AM CDT) Neutrophil abs 6.29 1.50 - 6.50 K/cumm Imm gran abs 0.05 0.00 - 0.10 K/cumm [facility] Lymphocyte abs 2.86 0.80 - 3.30 K/cumm [facility] Monocyte abs 0.76 0.20 - 0.80 K/cumm [facility] Eosinophil abs 0.24 0.00 - 0.50 K/cumm [facility] Basophil abs 0.06 0.00 - 0.10 K/cumm [facility] Neutrophil pct 61.3 % [facility] Comment: Interpretive Data Percent cell count reference ranges are not reported, since discordance with absolute values may lead to misinterpretation of CBC data. Current Interpretive Data was last revised on 2017. Imm gran pct 0.5 % [facility] Comment: Interpretive Data Percent cell count reference ranges are not reported, since discordance with absolute values may lead to misinterpretation of CBC data. Current Interpretive Data was last revised on 2017. Lymphocyte pct 27.9 % [facility] Comment: Interpretive Data Percent cell count reference ranges are not reported, since discordance with absolute values may lead to misinterpretation of CBC data. Current Interpretive Data was last revised on 2017. Monocyte pct 7.4 % [facility] Comment: Interpretive Data Percent cell count reference ranges are not reported, since discordance with absolute values may lead to misinterpretation of CBC data. Current Interpretive Data was last revised on 2017. Eosinophil pct 2.3 % [facility] Comment: Interpretive Data Percent cell count reference ranges are not reported, since discordance with absolute values may lead to misinterpretation of CBC data. Current Interpretive Data was last revised on 2017. Basophil pct 0.6 % [facility] Comment: Interpretive Data Percent cell count reference ranges are not reported, since discordance with absolute values may lead to misinterpretation of CBC data. Current Interpretive Data was last revised on 2017. Blood 02/26/2025 11:4 3 AM CDT 02/26/2025 11:43 AM CDT Shemar Pickering MD LAB BLOOD ORDERABLES Fin al Result Performing Organization Address [facility] Co de Phone Number [address] [place] [address] * (ABNORMAL) CBC with auto differential (02/26/2025 11:43 AM CDT) WBC 10.26(H) 3.80 - 9.90 K/cumm Hgb 14.4 11.9 - 15.5 g/dL [facility] Hct 42.7 35.6 - 45.5 % [facility] Plt 433(H) 150 - 400 K/cumm [facility] MPV 9.5 9.1 - 12.3 fL [facility] RBC 4.73 3.90 - 5.20 M/cumm [facility] MCV 90.3 81.3 - 96.4 fL [facility] MCH 30.4 27.1 - 33.3 pg [facility] MCHC 33.7 32.3 - 35.7 g/dL [facility] RDW CV 13.3 11.1 - 14.9 % [facility] RDW SD 44.2 35.7 - 48.1 fL [facility] NRBC abs 0.00 0.00 - 0.01 K/cumm [facility] Blood 02/26/2025 11:4 3 AM CDT 02/26/2025 11:49 AM CDT Shemar Pickering MD LAB BLOOD ORDERABLES Fin al Result Performing Organization Address [facility] Co de Phone Number [address] [place] [address] * Vitamin D 25 hydroxy (02/26/2025 11:43 AM CDT) Vitamin D 25-OH 43.0 30.0 - 80.0 ng/mL Blood 02/26/2025 11:4 3 AM CDT 02/26/2025 11:49 AM CDT Shemar Pickering MD LAB BLOOD ORDERABLES Fin al Result Performing Organization Address [facility] de Phone Number [id number] [address] * TSH (02/26/2025 11:43 AM CDT) Thyroid Stimulating Hormone 1.96 0.30 - 4.20 mcIUnit/mL Blood 02/26/2025 11:4 3 AM CDT 02/26/2025 11:49 AM CDT Shemar Pickering MD LAB BLOOD ORDERABLES Fin al Result Performing Organization Address [facility] de Phone Number [address] [address] * T4, free (02/26/2025 11:43 AM CDT) Free T4 1.06 0.90 - 1.70 ng/dL Blood 02/26/2025 11:4 3 AM CDT 02/26/2025 11:49 AM CDT Shemar Pickering MD LAB BLOOD ORDERABLES Fin al Result Performing Organization Address [facility] de Phone Number [address] [address] * (ABNORMAL) Lipid panel (02/26/2025 11:43 AM CDT) Cholesterol 199 30 - 199 mg/dL Comment: Interpretive Data Ages < or = 19 years Acceptable: <170 mg/dL Borderline high: 170-199 mg/dL High: >or= 200 mg/dL Ages > or = 20 years Desirable: <200 mg/dL Borderline high: 200-239 mg/dL High: >or= 240 mg/dL Literature References: 1. Expert Panel on Integrated Guidelines for Cardiovascular Health and Risk Reduction in Children and Adolescents. Pediatrics 2011;128:S213 2. NCEP Expert Panel. Circulation 2004;110:227 Current Interpretive Data was last revised on 2018. Triglycerides 249(H) <=149 mg/dL [facility] Comment: Interpretive Data Ages < or = 9 years Acceptable: <75 mg/dL Borderline high: 75-99 mg/dL High: >or= 100 mg/dL Ages 10 to 20 years Acceptable: <90 mg/dL Borderline high: 90-129 mg/dL High: >or= 130 mg/dL Ages > or = 20 years Desirable: <150 mg/dL Borderline high: 150-199 mg/dL High: 200-499 mg/dL Very high: >or= 499 mg/dL Literature References: 1. Expert Panel on Integrated Guidelines for Cardiovascular Health and Risk Reduction in Children and Adolescents. Pediatrics 2011;128:S213 2. NCEP Expert Panel. Circulation 2004;110:227 Current Interpretive Data was last revised on 2018. HDL 44 >=40 mg/dL [facility] Comment: Interpretive Data Ages < or = 19 years Acceptable: >45 mg/dL Borderline low: 40-45 mg/dL Low: <40 mg/dL Ages > or = 20 years Desirable: >or= 60 mg/dL Low: <40 mg/dL Literature References: 1. Expert Panel on Integrated Guidelines for Cardiovascular Health and Risk Reduction in Children and Adolescents. Pediatrics 2011;128:S213 2. NCEP Expert Panel. Circulation 2004;110:227 Current Interpretive Data was last revised on 2018. LDL, calculated 112 <=129 mg/dL [facility] Comment: Interpretive Data Ages < or = 19 years Acceptable: <110 mg/dL Borderline high: 110-129 mg/dL High: >or= 130 mg/dL Ages > or = 20 years Optimal: <100 mg/dL Near optimal: 100-129 mg/dL Borderline high: 130-159 mg/dL High: >160 mg/dL Calculated using the Priest LDL-C estimating equation. This equation was implemented on 2024. Prior to this date LDL-C was estimated using the Friedewald equation. Literature References: 1. Expert Panel on Integrated Guidelines for Cardiovascular Health and Risk Reduction in Children and Adolescents. Pediatrics 2011;128:S213 2. NCEP Expert Panel. Circulation 2004;110:227 3. Cem M et al. JOB Cardiol. 2020 October 22;5(5):540-548. doi: 10.1001/jamacardio.2020.0013 Current Interpretive Data was last revised on 2024. Non-HDL Cholesterol 155 mg/dL [facility] Comment: Interpretive Data Ages < or = 19 years Acceptable: <120 mg/dL Borderline high: 120-144 mg/dL High: >145 mg/dL Ages > or = 20 years When triglycerides are >200 mg/dL, Non-HDL cholesterol is a secondary target of therapy with treatment goals that are 30 mg/dL greater than the LDL cholesterol target. Literature References: 1. Expert Panel on Integrated Guidelines for Cardiovascular Health and Risk Reduction in Children and Adolescents. Pediatrics 2011;128:S213 2. NCEP Expert Panel. Circulation 2004;110:227 Current Interpretive Data was last revised on 2018. Chol/HDL ratio 5 [facility] Blood 02/26/2025 11:4 3 AM CDT 02/26/2025 11:49 AM CDT us Shemar Pickering MD LAB BLOOD ORDERABLES Fin al Result [facility] [address] Department [place] [address] * Comprehensive metabolic panel (02/26/2025 11:43 AM CDT) Sodium 140 135 - 145 mmol/L Potassium, pl 3.9 3.3 - 4.9 mmol/L [facility] Chloride 105 97 - 110 mmol/L [facility] CO2 23 22 - 32 mmol/L [facility] Anion gap 12 2 - 15 mmol/L [facility] BUN 13 6 - 25 mg/dL [facility] Creatinine 0.76 0.60 - 1.10 mg/dL [facility] Glucose 122 70 - 199 mg/dL [facility] Comment: Interpretive Data Fasting glucose >/= 126 mg/dl is diagnostic for diabetes. Fasting is defined as no caloric intake for at least 8 hours. Fasting glucose between 100 mg/dl to 125 mg/dl is diagnostic of prediabetes. In a patient with classic symptoms of hyperglycemia or hyperglycemic crisis, a random glucose >/= 200 mg/dl is diagnostic for diabetes. In the absence of unequivocal hyperglycemia, results should be confirmed by repeat testing. The classification and Diagnosis of Diabetes Diabetes Care 202; 46: S19-S40. Current interpretive data was last revised 2022. Calcium 9.6 8.5 - 10.3 mg/dL [facility] Bilirubin, total 0.2 0.1 - 1.2 mg/dL [facility] Protein, pl 7.1 6.5 - 8.5 g/dL [facility] Albumin 4.3 3.5 - 5.0 g/dL [facility] Alk phos 77 40 - 130 Units/L [facility] ALT 34 7 - 45 Units/L [facility] AST 27 10 - 45 Units/L [facility] Blood 02/26/2025 11:4 3 AM CDT 02/26/2025 11:49 AM CDT Shemar Pickering MD LAB BLOOD ORDERABLES [facility] al Result [facility] [address] Department [place] [address] * N. gonorrhoeae/C. trachomatis Amplification Urine (02/26/2025 11:35 AM CDT) Pathologist [facility] C. trachomatis Not Detected [facility] Comment:Testing performed by : [facility], [address] [place] [address], [place]., [address] N. gonorrhoeae Not Detected [facility] Comment: Interpretive Data This assay detects Chlamydia trachomatis and Neisseria gonorrhoeae by nucleic acid amplification testing (NAAT). This assay has been cleared by the [place] Food and Drug administration. The performance characteristics of this test have been verified by the [facility] Molecular Infectious Disease laboratory. The performance characteristics of this test have not been evaluated in individuals less than 14 years of age. Current Interpretive Data was last revised on 2023. Testing performed by: [facility], [address] [place] [address]., [address] Urine 02/26/2025 11:3 5 AM CDT 02/26/2025 3:49 PM CDT Shemar Pickering MD LAB MICROBIOLOGY - GENER AL ORDERABLES Final Result Performing Organization Address [facility] de Phone Number [facility] [address] [address] [place] * (ABNORMAL) Urinalysis reflex to microscopic and culture Urine (02/26/2025 11:35 AM CDT) Color, ur Yellow Yellow Clarity, ur Clear Clear [facility] Specific gravity, ur 1.005 1.003 - 1.030 [facility] pH, urine 7.0 [facility] Comment: Interpretive Data U rine pH is affected by diet, medications, systemic acid-base disturbances, and renal tubular function. pH may affect urinary stone formation. For example, urine pH below 6.0 may help reduce the tendency for calcium phosphate stones and pH greater than 6.0 may reduce the tendency for uric acid stone formation. Source: [facility] Current Interpretive Data was last revised on 2017 Protein, ur ql Negative Negative [facility] Glucose, ur ql Negative Negative [facility] Ketones, ur Negative Negative [facility] Bilirubin, ur Negative Negative [facility] Blood, ur 1+(A) Negative [facility] Urobilinogen, ur <2.0 <2.0 mg/dL [facility] Nitrite, ur Negative Negative [facility] Leukocyte esterase, ur 4+(A) Negative [facility] UA reflex comment Reflex to microscopic UA will be performed. [facility] Urine 02/26/2025 11:3 5 AM CDT 02/26/2025 11:50 AM CDT Shemar Pickering MD LAB MICROBIOLOGY - GENER AL ORDERABLES Final Result Performing Organization Address [facility] Co de Phone Number [facility] [address] [place] [address] * (ABNORMAL) Urinalysis, microscopic only (02/26/2025 11:35 AM CDT) WBC, ur 0-5 0 - 5 /HPF RBC, ur 3-5(A) 0 - 2 /HPF [facility] Epithelial cells, squamous, ur 1-5 0 - 5 /HPF [facility] Bacteria, ur 1+(A) [facility] Mucous, ur Present(A) [facility] Culture Reflex Comment Reflex conditions for urine culture (WBC >10) not met. [facility] Urine 02/26/2025 11:3 5 AM CDT 02/26/2025 11:50 AM CDT us Shemar Pickering MD LAB URINE ORDERABLES Fin al Result [facility] [address] Department [place] [address] * Colonoscopy (04/21/2024 7:30 AM CDT) Anatomical Region Laterality Modality Other Narrative Procedure Note Jose Fritz MD - 04/21/2024 7:30 AM CDT [facility] GI ENDOSCOPY Patient Name: Nevin Licea Procedure Date: 04/21/2024 7:30 AM Date of : 1980 Admit Type: Outpatient Age: 44 Gender: Female Attending MD: Jose Fritz M.D. Room: [facility] ENDOSCOPY ROOM 06 Note Status: Finalized Procedure: [...] The scope was passed under direct vision.The [id number] was introduced through theanus and advanced to [...] On: 04/21/2024 7:30 AM Recognized by the [employer] [place] [employer] for Gastrointestinal Endoscopy for promoting quality in endoscopy Jose Fritz MD ENDOSCOPY PROCEDURES Final Resul t * MAMMOGRAPHY (11/28/2015) Mammogram Normal Comment:Next screening at ag e 39 Historical Provider HEALTH MAINTENANCE Final Result from Last 3 Months or Most Recently Relevant to Health Maintenance Insurance [facility] [id number] [facility] [id number] [facility] [id number] Care Teams Molder Punch Relationship Specialty Start Date End Date Shemar Pickering MD [address] [place] [address] PCP - General 07/18/18 Shemar Pickering MD [address] [place] [address] 07/18/18
[2025-04-19 06:20] VITALS: BP 127/80; PULSE 87; RESP 16; TEMP 36.6; O2SAT 96
[2025-04-19] MEDS: ACETAMINOPHEN 500 MG TABLET 1000 MG PO (06:30)
[2025-04-19] MEDS: LACTATED RINGERS 1,000 ML 30 ML IV CONT (06:35)
--- NOTE | 2025-04-19 06:44 | WPDANESEPPF ---
Anes - Initial Pre Proc Eval Procedure: Operation Date: 04/19/25 07:30 Proposed Procedures p Hysteroscopy Dilation and Curettage - Laine Alvarez MD Date/Time: 04/19/25 06:44 Surgeon: Laine Alvarez MD Pre Op Diagnosis: pelvic pain, fibroids Patient Data Age: 45 Gender: F Height: 1.65 m Weight: 113.6 kg Allergies Allergy/AdvReac Type Severity Reaction Status Date / Time No Known Allergies Allergy Unknown Verified 04/09/25 14:19 Home Medications ?Medication ?Instructions ?Recorded ?Confirmed ?Type ondansetron 4 mg disintegrating 4 mg PO Q8H PRN nausea and 02/27/24 04/09/25 Rx tablet vomiting #10 tabs escitalopram oxalate 10 mg tablet 20 mg PO DAILY 01/31/25 04/09/25 History ondansetron 4 mg disintegrating 4 mg PO Q8H PRN nausea and 02/01/25 04/09/25 Rx tablet vomiting #10 tabs buspirone 10 mg tablet 10 mg PO BID 04/09/25 04/09/25 History cholecalciferol (vitamin D3) 10 2,000 unit PO DAILY 04/09/25 04/09/25 History mcg (400 unit) tablet cranberry 500 mg capsule 1,000 mg PO DAILY 04/09/25 04/09/25 History cyanocobalamin (vitamin B-12) 100 100 mcg PO DAILY 04/09/25 04/09/25 History mcg tablet (Vitamin B-12) gabapentin 100 mg capsule 100 mg PO DAILY 04/09/25 04/09/25 History glucosamine 375 so-kbhlnxrzg-iju 1 tablet PO DAILY 04/09/25 04/09/25 History no1 500 mg-C 15 mg-guy 0.5 mg tablet (Dujsvfplmvw-Klbheehtnqx-BTB Complex) lactobacillus combination no.4 3 3,000 mmu cells PO DAILY 04/09/25 04/09/25 History billion cell capsule (Probiotic) magnesium 200 mg tablet 200 mg PO DAILY 04/09/25 04/09/25 History multivitamin (Daily Multi-Vitamin 1 tablet PO DAILY 04/09/25 04/09/25 History tablet) Patient hx anesthesia problems: none Family hx anesthesia problems: none Results Review: All pre-operative results and documents have been reviewed as part of the pre-operative evaluation. PMFSH Past Medical History Medical History (Updated 04/19/25 @ 06:44 by Gavin Kohli MD) Morbid obesity Family History Family History Mother Hypertension Grandparent Diabetes mellitus Social History Social History Years smoked: 13 Smoking status: Current every day smoker Tobacco type: cigarettes Alcohol intake: current Alcohol use details: 2x/year Substance use type: marijuana Other substance usage details: gummy every 2 wks. Living arrangements: alone Spiritual care concerns: No Anes - Eval Final PreProcedure Day of Procedure 04/19/25 06:44 Patient weight: morbidly obese Heart: regular rate and rhythm Lungs: clear to auscultation Airway: Mallampati scale class II Neurological: alert and oriented Last oral intake: >/= 8 hours ASA classification: III Emergent: no Anesthetic plan: proceed Anesthesia type and monitoring: general GIVS and standard monitoring Results Review: All pre-operative results and documents have been reviewed as part of the pre-operative evaluation. Informed Consent: The patient's anesthetic plan and its attendant risks and benefits were discussed with the patient/family/POA. Questions were solicited and answers provided to the satisfaction of the patient/family/POA.
[2025-04-19 06:50] LABS: BEDSIDEPREGUCG Negative (Negative)
--- NOTE | 2025-04-19 07:18 | WPDHPUPDATE1 ---
History and Physical Update Update Date/Time: 04/19/25 07:18 History and Physical has been reviewed, including an updated exam of the patient. There are NO changes in the patient's condition. Risks, benefits, and alternatives have been discussed and questions answered. Patient agrees to proceed with procedure.
--- NOTE | 2025-04-19 07:18 | PM.HPGS ---
History of Present Illness History of Present Illness Consent: Risks, benefits, and alternatives have been discussed and questions answered. Patient agrees to proceed with procedure. Chief complaint: pelvic pain, fibroids Narrative: Nevin Licea is a 45 year old female with episodes of prolonged bleeding. In addition the patient cramping on and off for the past 3 months. The patient has an IUD by ultrasound it is in the proper position. In addition the patient a uterine fibroid seen by ultrasound measuring2.5cm. It was recommended to undergo D&C hysteroscopy. Risks of infection, bleeding, perforation, and possible pathology are reviewed. In addition the possible removal of the IUD is discussed. Patient voices understanding and agrees to proceed. Review of Systems Review of Systems: not repeated day of surgery; patient states no changes in status PMFSH Past Medical History Medical History (Updated 04/19/25 @ 07:24 by Laine Alvarez MD) Borderline diabetes Neuropathy Narcolepsy Kidney stones Depression Morbid obesity Surgical History Surgical History (Updated 04/19/25 @ 07:23 by Laine Alvarez MD) History of foot surgery History of lung biopsy Status post bunionectomy Status post wrist surgery 2007, 2015 Status post laparoscopic cholecystectomy Family History Family History Mother Hypertension Grandparent Diabetes mellitus Social History Social History Years smoked: 13 Smoking status: Current every day smoker Tobacco type: cigarettes Alcohol intake: current Alcohol use details: 2x/year Substance use type: marijuana Other substance usage details: gummy every 2 wks. Living arrangements: alone Spiritual care concerns: No Meds Home Medications and Allergies Home Medications ?Medication ?Instructions ?Recorded ?Confirmed ?Type ondansetron 4 mg disintegrating 4 mg PO Q8H PRN nausea and 02/27/24 04/09/25 Rx tablet vomiting #10 tabs escitalopram oxalate 10 mg tablet 20 mg PO DAILY 01/31/25 04/19/25 History ondansetron 4 mg disintegrating 4 mg PO Q8H PRN nausea and 02/01/25 04/09/25 Rx tablet vomiting #10 tabs buspirone 10 mg tablet 10 mg PO BID 04/09/25 04/19/25 History cholecalciferol (vitamin D3) 10 2,000 unit PO DAILY 04/09/25 04/19/25 History mcg (400 unit) tablet cranberry 500 mg capsule 1,000 mg PO DAILY 04/09/25 04/19/25 History cyanocobalamin (vitamin B-12) 100 100 mcg PO DAILY 04/09/25 04/19/25 History mcg tablet (Vitamin B-12) gabapentin 100 mg capsule 100 mg PO DAILY 04/09/25 04/19/25 History glucosamine 375 ub-xqubmjysm-crl 1 tablet PO DAILY 04/09/25 04/19/25 History no1 500 mg-C 15 mg-guy 0.5 mg tablet (Clerylugwqj-Llqnwexlltx-QAB Complex) lactobacillus combination no.4 3 3,000 mmu cells PO DAILY 04/09/25 04/19/25 History billion cell capsule (Probiotic) magnesium 200 mg tablet 200 mg PO DAILY 04/09/25 04/19/25 History multivitamin (Daily Multi-Vitamin 1 tablet PO DAILY 04/09/25 04/19/25 History tablet) Allergies Allergy/AdvReac Type Severity Reaction Status Date / Time No Known Allergies Allergy Unknown Verified 04/19/25 06:47 Vital Signs Vital Signs - 24 hr 04/19/25 06:20 Temperature 97.8 F Pulse Rate 87 Respiratory Rate 16 Blood Pressure 127/80 Pulse Oximetry 96 Oxygen Delivery Room Air Exam Const: General: healthy appearing and alert Orientation/consciousness: patient oriented x3 Resp: Effort & Inspection: normal respiratory effort Auscultation: clear to auscultation bilaterally Cardio: Rate: regular rate Rhythm: regular rhythm GI: GI Palp: Yes Soft to palpation, No Tenderness to palpation present (GI) and No Palpable mass present : External Female Exam: normal external appearance Speculum Exam - Vagina: normal appearance of the vagina and normal vaginal discharge Speculum Exam - Cervix: normal appearance of the cervix Bimanual exam- vagina & uterus: uterine size normal and consistency normal Bimanual Exam- Adnexa, other: normal adnexae and No adnexal tenderness Neuro: General: patient oriented x3 Assessment and Plan Assessment and plan (1) Irregular menstrual bleeding: Code(s): N92.6 - Irregular menstruation, unspecified Status: Acute Assessment and Plan: Plan to proceed with D&C hysteroscopy
--- NOTE | 2025-04-19 07:44 | P.OP_ITS ---
Procedure Note - Detailed Date of Procedure 04/19/25 Pre-op Diagnosis pelvic pain, fibroids Post-op Diagnosis Same Procedure Performed D&C hysteroscopy Surgeon Laine Alvarez MD Anesthesia MAC Findings Uterus sounds to 8cm. No evidence of submucosal fibroid. IUD appears in place although is shifted to the right tubal ostia. Description of Procedure The patient was taken to the operating room and placed under anesthesia in the dorsal lithotomy position. She was prepped and draped in the usual sterile fashion. Friendship speculum was placed in the vagina and the cervix grasped on the anterior lip with a tenaculum. The uterus is sounded to 8cm. The d iagnostic hysteroscope was placed with the above-stated findings. With no abnormalities noted, the hysteroscope was removed. The sharp curette is used to curette the endometrium until a good uterine cry was noted in all areas. All instruments were then removed. Sponge, needle, and instrument counts are correct per the OR staff. Patient was awakened from anesthesia and taken to recovery in stable condition. Estimated Blood Loss 5 Drains No Packing No Pathology Yes (Endometrial curettings) Complications No immediate complications Condition Stable Disposition PACU
[2025-04-19 07:48] VITALS: BP 141/81; PULSE 68; RESP 14; O2SAT 100
--- NOTE | 2025-04-19 07:51 | S_PTH ---
PATIENT: Nevin Licea LOC: [facility]#:[id number] AGE/SX: 45/F ROOM: RE04/19/[address]: Laine Alvarez MD : 1980 BED: DIS: 04/19/2025 SPEC #: [id number] RECD: 04/19/25 09:14 STATUS: KEELY REQ #: [id number] AMANDA: 04/19/25 07:[address]: Laine Alvarez DEPT: [facility] Surgical RECD BY: Darcie Lopez ENTERED: 04/19/25 09:14 SP TYPE: Surgical OTHR DR: Ny Carmichael, REGULATORY CONSULTANT Tissues: A - Endometrial Curettings Procedures: Hematoxylin and Eosin Stain Gross and Microscopic Level 4
[2025-04-19] MEDS: fentaNYL CITRATE INJ (*CRX) 100 MCG/2 ML VIAL 25 MCG IV PUSH ×4 (08:06→08:26)
[2025-04-19 08:15] VITALS: BP 117/60; PULSE 78; RESP 20
[2025-04-19 08:45] VITALS: BP 130/77; PULSE 70; RESP 20
[2025-04-19] MEDS: oxyCODONE HCL (*CRX) 5 MG TAB IR PO (08:56)
[2025-04-19 09:15] VITALS: BP 113/65; PULSE 68; RESP 20
== END 2025-04-19 09:21 | disposition home or self-care (01) ==
PROVIDERS: PCP Nurse Practitioner Adult Health; Visit Provider Obstetrics & Gynecology Gynecology
PROC: 0U5B8ZZ Destruction of Endometrium, Via Natural or Artificial Opening Endoscopic (ICD-10-PCS; CPT 58563; principal; 2025-04-19 07:30)
DX: N92.6 Irregular menstruation, unspecified (principal); E66.01 Morbid (severe) obesity due to excess calories; Z68.41 Body mass index [BMI] 40.0-44.9, adult; F17.210 Nicotine dependence, cigarettes, uncomplicated; F12.90 Cannabis use, unspecified, uncomplicated; Z97.5 Presence of (intrauterine) contraceptive device
CPT/HCPCS: 58558; 88305; A9270; J2003; J2250; J2405; J2704; J3010; J7120

== ENCOUNTER 2025-05-04 13:39 | Outpatient (CLI) | payer OTHER, SELFPAY ==
--- OUTSIDE RECORDS SUMMARY | 2025-05-04 13:44 | XMS_ITS | Patient Health Record ---
Author Organization [facility] Address [address] [place], [place] [id number] Care Team Providers Care Mold Preparer Name Role Phone HEBER SERRANO Unavailable [phone] Shemar Pickering Unavailable Unavailable Reason For Referral No Information Social History Social History Additional Details Category Social Info Options Details Migrated Social History Migrated Social History History of tobacco use : Current every day smoker , Smoking Status : Current every day smoker , Alcohol intake : Plan Of Treatment No Information Insurance Providers Payer Name Payer Address Payer Phone Subscriber Number Group Number Insured Name Patient Relationship to Insured Coverage Start Date [facility]age End Date [facility] [address] [place], [place] [id number] CAITLIN CEJA Self - patient is the insured
--- OUTSIDE RECORDS SUMMARY | 2025-05-04 13:44 | XMS_ITS | Clinical Summary ---
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 Gender Identity Not on file Sexual Orientation Not on file Plan of Treatment Health Maintenance Due Date Last Done Comments Hepatitis C Virus (HCV) Screening 1980 Hepatitis B Immunization (1 of 3 - 19+ 3-dose series) 1998 Pap Smear 2000 Cervical Cancer Screening (CCS) 2009 HPV/Cotest 2009 Cologuard 2024 Colonoscopy 2024 Colorectal Cancer Screening 2024 Immunochemical Fecal Occult Blood 2024 Influenza Immunization (#1) 2025 09/3 , 04/26/2018, 05/02/2016, Additional history exists SARS-COV-2 Immunization ( season) 2025 05/11/2021, 09/08/2020, 08/11/2020 Respiratory Syncytial Virus (RSV) Immunization (Adult) (1 - 1-dose 75+ series) 2054 DTaP/Tdap/Td Immunization Discontinued 2010, 02/03/1993, 01/28/1985, Additional history exists TdaP Immunization Completed 12/19/2010 Human Papillomavirus (HPV) Immunization Aged Out No longer eligible based on patient's age to complete this topic Meningococcal Immunization (ACWY) Aged Out No longer eligible based on patient's age to complete this topic Pneumococcal Immunization Combined Aged Out No longer eligible based on patient's age to complete this topic Rotavirus Immunization Aged Out No lo nger eligible based on patient's age to complete this topic
--- OUTSIDE RECORDS SUMMARY | 2025-05-04 13:44 | XMS_ITS | Clinical Summary ---
Author Organization [facility] Address [address] [place] [address] Care Team Providers Care Economic Development Manager Name Role Phone Unavailable Primary Care [...] Abstract 03/03/2025 9:00 AM CDT Office Visit [facility] at the [address] [place] [address] Rafa Cooney MD Nephrolithiasis (Primary Dx); Lower abdominal pain; Dysuria 03/03/2025 8:03 AM CDT - 03/03/2025 11:59 PM CDT Hospital Encounter [facility] [address] [facility] [facility] [address] [place] [address] Deborah Mayes FNP Discharge Disposition: Home or Self Care 03/01/2025 Orders Only [facility] at the [facility] [address] [facility] [facility] [place] [address] ORDERLY Nephrolithiasis (Primary Dx) from Last 3 Months [...] IMPRESSION: Right nephrolithiasis. DICTATION LOCATION: Location [address] [facility] [address] ORDERLY DIAGNOSTIC IMAGING ORDERABLES Final Result from Last 3 Months Insurance [facility] [employer]
--- OUTSIDE RECORDS SUMMARY | 2025-05-04 13:45 | XMS_ITS | Encounter Summary ---
Author Organization [facility] Facility Care Team Providers Care Workforce Services Representative Name Role Phone Shemar Pickering MD Primary Care Provider + Shemar Pickering MD Primary Care Provider + Shemar Pickering MD Primary Care Provider + Shemar Pickering MD Primary Care Provider + Shemar Pickering MD Unavailable [phone] Encounter Details Date Type Department Care Team (Latest Contact Info) Description 06/07/2016 Orders Only [facility] CLINCONV ProviderMeghana MD [address] [place] [address] Social History Tobacco Use Types Packs/Day Years Used Date Smoking Tobacco: Every Day Comments:Smoking History Pac ks/day: 0.25 Packs Alcohol Use Standard Drinks/Week Comments No 0 (1 standard drink = 0.6 oz pur e alcohol) Comments Unknown Sex and Gender Information Value Date Recorded Sex Assigned at Not on file Legal Sex Female 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 us Historical Provider Final Res ult documented in this encounter Visit Diagnoses Not on filedocumented in this encounter Care Teams Workforce Services Representative Relationship Specialty Start Date End Date Shemar Pickering MD [address] [place] [address] [place] [address] PCP - General 03/12/13 09/07/16 Shemar Pickering MD [address] [place] [address] [place] [address] PCP - General 09/08/16 09/20/16 Shemar Pickering MD [address] [place] [address] [place] [address] PCP - General 09/21/16 07/17/18 Shemar Pickering MD [address] [place] [address] [place] [address] PCP - General 07/18/18 Sehmar Pickering MD [address] [place] [address] [place] [address] 07/18/18 documented as of this encounter
--- OUTSIDE RECORDS SUMMARY | 2025-05-04 13:45 | XMS_ITS | Encounter Summary ---
Author Organization [facility] Care Team Providers Care Chief Data Officer Name Role Phone Shemar Pickering MD Primary Care Provider + Shemar Pickering MD Primary Care Provider + Shemar Pickering MD Primary Care Provider + Shemar Pickering MD Primary Care Provider + Shemar Pickering MD Unavailable [phone] Encounter Details Date Type Department Care Team (Latest Contact Info) Description 06/12/2016 Orders Only [facility] CLINCONV Provider, MD Meghana [address] [place] [address] Social History Tobacco Use Types Packs/Day Years Used Date Smoking Tobacco: Every Day Comments:Smoking History Pac ks/day: 0.25 Packs Alcohol Use Standard Drinks/Week Comments No 0 (1 standard drink = 0.6 oz pur e alcohol) Comments Unknown Sex and Gender Information Value Date Recorded Sex Assigned at Not on file Legal Sex Female 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 us Historical Provider Final Res ult * PROCEDURE - RESULT (06/07/2016 12:00 AM VICE PRESIDENT EDUCATION) Narrative 06/07/2016 12:00 AM VICE PRESIDENT EDUCATION Ordered by an unspecified provider. us Historical Provider Final Res ult documented in this encounter Visit Diagnoses Not on filedocumented in this encounter Care Teams Chief Data Officer Relationship Specialty [place] [address] [place] [address] LENNY QUINN [id number] PCP - General 03/12/13 09/07/16 Shemar Pickering MD [address] [place] [address] LENNY QUINN [address] PCP - General 09/08/16 09/20/16 Shemar Pickering MD [address] [place] [address] LENNY QUINN [id number] PCP - General 09/21/16 07/17/18 Shemar Pickering MD [address] [place] [address] LENNY QUINN [address] PCP - General 07/18/18 Shemar Pickering MD [address] [place] [address] LENNY QUINN [id number] 07/18/18 documented as of this encounter
--- OUTSIDE RECORDS SUMMARY | 2025-05-04 13:45 | XMS_ITS | Clinical Summary ---
Author Organization [facility] Address [address] [place] [address] Care Team Providers Care Tunnel Kiln Repairer Name Role Phone Shemar Pickering MD Primary Care Provider + Shemar Pickering MD Unavailable [phone] Allergies Active Allergy Reactions Criticality Noted Date [...] needed Assessment & Plan (05/09/2023 7:45 AM AUTOMOBILE GLASS TECHNICIAN): Dysphagia for the past few months. 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 Hx Other Medical psychiatric dis order/mild depression; [...] on file Legal Sex Female 7:04 PM AUTOMOBILE GLASS TECHNICIAN Gender Identity Not on file Sexual Orientation Not on file Last Filed Vital Signs Vital Sign Reading Time Taken Comments Blood Pressure 140/82 06/04/2024 8:38 AM AUTOMOBILE GLASS TECHNICIAN Pulse 110 06/04/2024 8:38 AM AUTOMOBILE GLASS TECHNICIAN Temperature 36.2 C (97.1 F) 04/21/2024 7:58 AM CDT Respiratory Rate 20 06/04/2024 8:38 AM AUTOMOBILE GLASS TECHNICIAN Oxygen Saturation 96% 06/04/2024 8:38 AM AUTOMOBILE GLASS TECHNICIAN Inhaled Oxygen Concentration - - Weight 102.1 kg (225 lb) 06/04/2024 8:38 AM AUTOMOBILE GLASS TECHNICIAN Height 165.1 cm (5' 5) 06/04/2024 8:38 AM AUTOMOBILE GLASS TECHNICIAN Body Mass Index 37.44 06/04/2024 8:38 AM AUTOMOBILE GLASS TECHNICIAN Plan of Treatment Health Maintenance Due Date [...] this topic Medical Devices Implanted Type Area Paper Novelty Maker Device Identifier Shelf Expiration Date Model / [...] MD LAB BLOOD ORDERABLES Fin al Result [place] [id number] [facility] Department [place] [address] * Differential, auto (02/26/2025 11:43 AM CDT) Neutrophil abs 6.29 1.50 - 6.50 K/cumm Imm gran abs 0.05 0.00 - 0.10 K/cumm [facility] Lymphocyte abs 2.86 0.80 - 3.30 K/cumm [facility] Monocyte abs 0.76 0.20 - 0.80 K/cumm [facility] Eosinophil abs 0.24 0.00 - 0.50 K/cumm [facility] Basophil abs 0.06 0.00 - 0.10 K/cumm [facility] Neutrophil pct 61.3 % [facility] Comment: Interpretive Data Percent cell count reference ranges are not reported, since discordance with absolute values may lead to misinterpretation of CBC data. Current Interpretive Data was last revised on 2017. Imm gran pct 0.5 % [facility] Comment: Interpretive Data Percent cell count reference ranges are not reported, since discordance with absolute values may lead to misinterpretation of CBC data. Current Interpretive Data was last revised on 2017. Lymphocyte pct 27.9 % [facility] Comment: Interpretive Data Percent cell count reference ranges are not reported, since discordance with absolute values may lead to misinterpretation of CBC data. Current Interpretive Data was last revised on 2017. Monocyte pct 7.4 % [facility] Comment: Interpretive Data Percent cell count reference ranges are not reported, since discordance with absolute values may lead to misinterpretation of CBC data. Current Interpretive Data was last revised on 2017. Eosinophil pct 2.3 % [facility] Comment: Interpretive Data Percent cell count reference ranges are not reported, since discordance with absolute values may lead to misinterpretation of CBC data. Current Interpretive Data was last revised on 2017. Basophil pct 0.6 % [facility] Comment: Interpretive Data Percent cell count reference ranges are not reported, since discordance with absolute values may lead to misinterpretation of CBC data. Current Interpretive Data was last revised on 2017. Blood 02/26/2025 11:4 3 AM CDT 02/26/2025 11:43 AM CDT Shemar Pickering MD LAB BLOOD ORDERABLES Fin al Result Performing Organization Address City/[facility]/ZIP Co de Phone Number [facility] [address] [place] [address] * (ABNORMAL) CBC with auto differential (02/26/2025 11:43 AM CDT) WBC 10.26(H) 3.80 - 9.90 K/cumm Hgb 14.4 11.9 - 15.5 g/dL [facility] Hct 42.7 35.6 - 45.5 % [facility] Plt 433(H) 150 - 400 K/cumm [facility] MPV 9.5 9.1 - 12.3 fL [facility] RBC 4.73 3.90 - 5.20 M/cumm [facility] MCV 90.3 81.3 - 96.4 fL [facility] MCH 30.4 27.1 - 33.3 pg [facility] MCHC 33.7 32.3 - 35.7 g/dL [facility] RDW CV 13.3 11.1 - 14.9 % [facility] RDW SD 44.2 35.7 - 48.1 fL [facility] NRBC abs 0.00 0.00 - 0.01 K/cumm [facility] Blood 02/26/2025 11:4 3 AM CDT 02/26/2025 11:49 AM CDT Shemar Pickering MD LAB BLOOD ORDERABLES Fin al Result Performing Organization Address City/[facility]/ZIP Co de Phone Number [facility] [address] [place] [address] * Vitamin D 25 hydroxy (02/26/2025 11:43 AM CDT) Vitamin D 25-OH 43.0 30.0 - 80.0 ng/mL Blood 02/26/2025 11:4 3 AM CDT 02/26/2025 11:49 AM CDT Shemar Pickering MD LAB BLOOD ORDERABLES Fin al Result Performing Organization Address [facility] de Phone Number [id number] [address] * TSH (02/26/2025 11:43 AM CDT) Thyroid Stimulating Hormone 1.96 0.30 - 4.20 mcIUnit/mL Blood 02/26/2025 11:4 3 AM CDT 02/26/2025 11:49 AM CDT Shemar Pickering MD LAB BLOOD ORDERABLES Fin al Result Performing Organization Address [facility] de Phone Number [address] [address] * T4, free (02/26/2025 11:43 AM CDT) Free T4 1.06 0.90 - 1.70 ng/dL Blood 02/26/2025 11:4 3 AM CDT 02/26/2025 11:49 AM CDT Shemar Pickering MD LAB BLOOD ORDERABLES Fin al Result Performing Organization Address [facility] de Phone Number [address] [address] * (ABNORMAL) Lipid panel (02/26/2025 11:43 AM [...] revised on 2024. Non-HDL Cholesterol 155 mg/dL [facility] Comment: Interpretive Data Ages < or = [...] last revised on 2018. Chol/HDL ratio 5 [facility] Blood 02/26/2025 11:4 3 AM CDT 02/26/2025 11:49 AM CDT us Shemar Pickering MD LAB BLOOD ORDERABLES Fin al Result [facility] [address] [facility] Department of Laboratories [place], [place] [id number] * Comprehensive metabolic panel (02/26/2025 11:43 AM CDT) Sodium 140 135 - 145 mmol/L Potassium, pl 3.9 3.3 - 4.9 mmol/L [facility] Chloride 105 97 - 110 mmol/L [facility] CO2 23 22 - 32 mmol/L [facility] Anion gap 12 2 - 15 mmol/L [facility] BUN 13 6 - 25 mg/dL [facility] Creatinine 0.76 0.60 - 1.10 mg/dL [facility] Glucose 122 70 - 199 mg/dL [facility] Comment: Interpretive Data Fasting glucose >/= 126 [...] classification and Diagnosis of Diabetes Diabetes Care 2021; 46: S19-S40. Current interpretive data was last revised 2022. Calcium 9.6 8.5 - 10.3 mg/dL [facility] Bilirubin, total 0.2 0.1 - 1.2 mg/dL [facility] Protein, pl 7.1 6.5 - 8.5 g/dL [facility] Albumin 4.3 3.5 - 5.0 g/dL [facility] Alk phos 77 40 - 130 Units/L [facility] ALT 34 7 - 45 Units/L [facility] AST 27 10 - 45 Units/L [facility] Blood 02/26/2025 11:4 3 AM CDT 02/26/2025 11:49 AM CDT Shemar Pickering MD LAB BLOOD ORDERABLES [facility] al Result [facility] [address] [facility] Department [place] [address] * N. gonorrhoeae/C. trachomatis Amplification Urine (02/26/2025 11:35 AM CDT) C. trachomatis Not Detected [facility] Comment:Testing performed by : [facility], [address] [place] [address]., [id number] N. gonorrhoeae Not Detected [facility] Comment: Interpretive Data This assay detects Chlamydia trachomatis and Neisseria gonorrhoeae by nucleic acid amplification testing (NAAT). This assay has been cleared by the [place] Food and Drug administration. The performance characteristics of this test have been verified by the [facility] Molecular Infectious Disease laboratory. The performance characteristics of this test have not been evaluated in individuals less than 14 years of age. Current Interpretive Data was last revised on 2023. Testing performed by: [facility], [address] [place] [address]., [id number] Urine 02/26/2025 11:3 5 AM CDT 02/26/2025 3:49 PM CDT Shemar Pickering MD LAB MICROBIOLOGY - GENER AL ORDERABLES Final Result Performing Organization Address [facility] de Phone Number [facility] [address] [address] [place] * (ABNORMAL) Urinalysis reflex to microscopic and culture Urine (02/26/2025 11:35 AM CDT) Color, ur Yellow Yellow Clarity, ur Clear Clear [facility] Specific gravity, ur 1.005 1.003 - 1.030 [facility] pH, urine 7.0 [facility] Comment: Interpretive Data U rine pH is affected by diet, medications, systemic acid-base disturbances, and renal tubular function. pH may affect urinary stone formation. For example, urine pH below 6.0 may help reduce the tendency for calcium phosphate stones and pH greater than 6.0 may reduce the tendency for uric acid stone formation. Source: [facility] Current Interpretive Data was last revised on 2017 Protein, ur ql Negative Negative [facility] Glucose, ur ql Negative Negative [facility] Ketones, ur Negative Negative [facility] Bilirubin, ur Negative Negative [facility] Blood, ur 1+(A) Negative [facility] Urobilinogen, ur <2.0 <2.0 mg/dL [facility] Nitrite, ur Negative Negative [facility] Leukocyte esterase, ur 4+(A) Negative [facility] UA reflex comment Reflex to microscopic UA will be performed. [facility] Urine 02/26/2025 11:3 5 AM CDT 02/26/2025 11:50 AM CDT Shemar Pickering MD LAB MICROBIOLOGY - GENER AL ORDERABLES Final Result Performing Organization Address [facility] Co de Phone Number [facility] [address] [place] [address] * (ABNORMAL) Urinalysis, microscopic only (02/26/2025 11:35 AM CDT) WBC, ur 0-5 0 - 5 /HPF RBC, ur 3-5(A) 0 - 2 /HPF [facility] Epithelial cells, squamous, ur 1-5 0 - 5 /HPF [facility] Bacteria, ur 1+(A) [place] Mucous, ur Present(A) [place] Culture Reflex Comment Reflex conditions for urine culture (WBC >10) not met. [facility] Urine 02/26/2025 11:3 5 AM CDT 02/26/2025 11:50 AM CDT us Shemar Pickering MD LAB URINE ORDERABLES Fin al Result [facility] [address] [facility] Department [place] [address] * Colonoscopy (04/21/2024 7:30 AM CDT) Anatomical Region Laterality Modality Other Narrative Procedure Note Jose Fritz MD - 04/21/2024 7:30 AM CDT [facility] GI ENDOSCOPY Patient Name: Nevin Licea Procedure Date: 04/21/2024 7:30 AM Date of : 1980 Admit Type: Outpatient Age: 44 Gender: Female Attending MD: Jose Fritz M.D. Room: [facility] ENDOSCOPY ROOM 06 Note Status: Finalized Procedure: [...] The scope was passed under direct vision.The [id number] was introduced through theanus and advanced to [...] On: 04/21/2024 7:30 AM Recognized by the [employer] for promoting quality in endoscopy Jose Fritz MD ENDOSCOPY PROCEDURES Final Resul t * MAMMOGRAPHY (11/28/2015) Mammogram Normal Comment:Next screening at ag e 39 Historical Provider HEALTH MAINTENANCE Final Result from Last 3 Months or Most Recently Relevant to Health Maintenance Insurance [facility] [id number] [facility] [id number] [facility] [id number] Care Teams Tunnel Kiln Repairer Relationship Specialty Start Date End Date Shemar Pickering MD [address] [address] PCP - General 07/18/18 Shemar Pickering MD [address] [place] [address] 07/18/18
--- OUTSIDE RECORDS SUMMARY | 2025-05-04 13:45 | XMS_ITS | Clinical Summary ---
Author Organization [facility] Address [address] [facility] [place] [address] Care Team Providers Care Program Advisor Name Role Phone Shemar Pickering MD Primary Care Provider [phone] Source Comments [facility],non-[facility] Affiliates and Associated Physician Practices is amultiple site organization consisting of ambulatory clinics and hospital sitesin [place], [place], [place] and [place]. This disclosure is being madepursuant to the Care Everywhere program and may not contain all information available regarding this patient. Last updated 18.[facility] [employer] Allergies No known active allergies Medications * [...] of 3 - 19+ 3-dose series) 1998 PNEUMOCOCCAL VACCINE (1 of 2 - PCV) 1998 PAP SMEAR 2000 DEPRESSION SCREENING 06/24/2024 COVID-19 VACCINE (1 - 2023-2 5 season) 2025 INFLUENZA VACCINE (#1) 2025 ZOSTER VACCINE (1 of 2) 2029 HIB VACCINE Aged Out No longer eligi ble based on patient's age to complete this topic HPV VACCINE Aged Out No longer eligi ble based on patient's age to complete this topic MENINGOCOCCAL (Group B) VACC INE SHARED DECISION-MAKING Aged Out No longer eligibl e based on patient's age to complete this topic MENINGOCOCCAL GROUPS A/C/Y/W VACCINE Aged Out No longer eligible b ased on patient's age to complete this topic Insurance [employer] SELF PAY NO INSURANCE Member Subscriber Plan / Payer (Ef fective for All Dates) Name:Caitlin Licea Member ID:Not on file Relation to Subscriber:Not on file Name:CAITLIN LICEA Subscriber ID:Not on file (Home) Address: [address] [place] [id number] Payer ID:Not on file Group ID:Not on file Type:Self Pay Address: [place], [place] [employer] Care Teams Program Advisor Relationship Specialty Start Date End Date Shemar Pickering MD PCP - General Internal Medicine 04/10/17
[2025-05-04 14:18] LABS: INR 1.0; Prothrombin Time 13.3 Seconds (11.1-14.7)
[2025-05-04 14:19] LABS: Partial Thromboplastin Time 29.9 Seconds (22.3-36.8)
== END 2025-05-04 13:40 | disposition home or self-care (01) ==
LOC: ANHLAB 13:40
PROVIDERS: PCP Nurse Practitioner Adult Health; Visit Provider Urology
DX: N20.0 Calculus of kidney (principal); Z01.818 Encounter for other preprocedural examination
CPT/HCPCS: 36415; 85610; 85730; 87086

== ENCOUNTER 2025-05-14 03:19 | Day surgery (SDC) | payer OTHER, SELFPAY ==
[2025-04-30 15:07] VITALS: BMI 41.6
--- NOTE | 2025-04-30 15:32 | PC.NURSE ---
[facility] has started construction of its new state of the art ER which will open Spring 2026. With this, we anticipate parking may be a challenge for some our surgical patients and families. Parking spaces are limited but are available for all Surgical, obstetrics, and ER patients sharing this lot. If you arrive and find you are having a hard time finding a parking space, please note that we understand the challenges, please drive around the hospital and park near Hospital Entrance 1. When you enter this entrance, you can ask a volunteer to direct or take you back to the surgical waiting area to check in. We appreciate everyone?s understanding of these expected challenges while we build for your future. Report to the Outpatient Waiting Room, entrance under the green pavilion located off [address], at time 0630AM on date __05/14/25 . Planned Procedure Time: ___0830AM .? Time changes happen often and if your time is changed the preop area will call you the afternoon before. - You and your visitor will be asked to self-screen and do not enter if you have any COVID symptoms. Please call surgeon if you need to reschedule. - A mask is optional within the hospital at this time. Patients may have clear liquids (water, carbonated beverages, clear teas, apple juice) until 3 hours prior to surgery with a maximum of 20 ounces. - No food from midnight until time of surgery and no smoking, or chewing tobacco (or any form of nicotine). No chewing gum, candy or mints. Take only the following medications with a SIP of water on the morning of surgery: __BUSPIRONE, GABAPENTIN, _ESCITALOPRAM DO NOT STOP ANY OF YOUR OTHER PRESCRIPTION MEDICATIONS PRIOR TO SURGERY EXCEPT THE FOLLOWING Hold all vitamins and supplements for 3 days per anesthesiologist. Medications to discontinue per physician SEE ABOVE Date to take last dose Please no make-up, nail nicaraguan, hairspray, perfume, deodorant, or body powder the day of surgery.? No jewelry (including any body piercings) or valuables the day of surgery, leave them at home.? Please take a shower or bath the night before, or the morning of, surgery with an antibacterial soap.? Wear comfortable, loose fitting clothing.? - Jewelry must be removed prior to entering the operating room.? Rings and piercings that are not removed may be cut off. - The hospital will not accept responsibility for valuables.? - Please leave all valuables, including medications, at home the day of surgery. If you are going home after surgery, a licensed school bus driver/mechanic must drive you home.? - NO public transportation without another adult if you receive anesthesia. - We recommend that an adult stay with you for 24 hours following discharge. - We also recommend that you do not drive, make important decision, drink alcoholic beverages, or take any drugs that were not prescribed by your health care provider for at least 24 hours after your discharge time. Follow any additional instructions given to you from your surgeon. Telephone instructions given to CECILE and asked if any additional questions and then verbalized understanding. Patient advised to call surgeon office or pre surgery nurse liaison [phone] if any additional questions.
--- NOTE | 2025-05-07 06:57 | PM.HPGS ---
History of Present Illness History of Present Illness Consent: Risks, benefits, and alternatives have been discussed and questions answered. Patient agrees to proceed with procedure. Chief complaint: Right Kidney Stone Narrative: Nevin Licea is a 45 year old female who has a remote history of urolithiasis approximately 8 years ago. ?She has a 2 month history of an atypical right flank pain that occasionally radiates to her right upper and lower quadrant. ?She has had 3 ?CT scans at [facility] which persistently show a 4 mm right mid pole stone. ?Additionally, she has persistent micro hematuria. ? I am going to get a KUB and make a decision about treating her stone either with ESWL or ureteroscopy. ?We can simultaneously do cystoscopy Addendum Note?(Douglas Carrasco MD; 04/07/2025 7:06 AM) KUB: ?Small identifiable calcified stones right upper pole Plan right ESWL Review of Systems Review of Systems: All systems reviewed & are unremarkable except as noted in HPI and below Cardiovascular: Cardiovascular: Denies chest pain, Denies lightheadedness, Denies palpitations and Denies dyspnea Respiratory: Respiratory: Denies dyspnea Gastrointestinal: Gastrointestinal: Denies diarrhea, Denies nausea and Denies vomiting Genitourinary: Genitourinary: Denies hematuria and Denies dysuria Endocrine: Endocrine: Denies palpitations PMFSH Past Medical History Medical History (Updated 04/19/25 @ 07:24 by Laine Alvarez MD) Borderline diabetes Neuropathy Narcolepsy Kidney stones Depression Morbid obesity Surgical History Surgical History (Updated 04/19/25 @ 07:23 by Laine Alvarez MD) History of foot surgery History of lung biopsy Status post bunionectomy Status post wrist surgery 2007, 2015 Status post laparoscopic cholecystectomy Family History Family History Mother Hypertension Grandparent Diabetes mellitus Social History Social History Smoking packs per day: 0.5 Smoking cigarettes per day: 10.0 Years smoked: 13 Smoking pack-years: 6.50 Smoking status: Current every day smoker Tobacco type: cigarettes Alcohol intake: current Alcohol use details: 2x/year Substance use: current Substance use type: marijuana Other substance usage details: EDIBLES EVERY COUPLE WEEKS Living arrangements: with family Spiritual care concerns: No Meds Home Medications and Allergies Home Medications ?Medication ?Instructions ?Recorded ?Confirmed ?Type ondansetron 4 mg disintegrating 4 mg PO Q8H PRN nausea and 02/27/24 04/30/25 Rx tablet vomiting #10 tabs escitalopram oxalate 10 mg tablet 20 mg PO DAILY 01/31/25 04/30/25 History ondansetron 4 mg disintegrating 4 mg PO Q8H PRN nausea and 02/01/25 04/30/25 Rx tablet vomiting #10 tabs buspirone 10 mg tablet 10 mg PO BID 04/09/25 04/30/25 History cholecalciferol (vitamin D3) 10 2,000 unit PO DAILY 04/09/25 04/30/25 History mcg (400 unit) tablet cranberry 500 mg capsule 1,000 mg PO DAILY 04/09/25 04/30/25 History cyanocobalamin (vitamin B-12) 100 100 mcg PO DAILY 04/09/25 04/30/25 History mcg tablet (Vitamin B-12) gabapentin 100 mg capsule 100 mg PO DAILY 04/09/25 04/30/25 History glucosamine 375 as-claldrbgc-rli 1 tablet PO DAILY 04/09/25 04/30/25 History no1 500 mg-C 15 mg-guy 0.5 mg tablet (Zkmbdwvtkad-Wvvtyhfwupk-EXT Complex) lactobacillus combination no.4 3 3,000 mmu cells PO DAILY 04/09/25 04/30/25 History billion cell capsule (Probiotic) magnesium 200 mg tablet 200 mg PO DAILY 04/09/25 04/30/25 History multivitamin (Daily Multi-Vitamin 1 tablet PO DAILY 04/09/25 04/30/25 History tablet) Allergies Allergy/AdvReac Type Severity Reaction Status Date / Time No Known Allergies Allergy Unknown Verified 04/30/25 15:31 Exam Const: General: no acute distress Resp: Effort & Inspection: normal respiratory effort GI: Inspection: non-distended GI Palp: No abdominal tenderness and No Guarding due to palpation present (GI) Auscultation: normal bowel sounds Assessment and Plan Assessment and plan (1) Kidney stone on right side: Code(s): N20.0 - Calculus of kidney Status: Inactive Assessment and Plan: Right ESWL
[2025-05-14] VITALS (8 sets, daily range): BP systolic 114–163; BP diastolic 47–84; PULSE 72–98; RESP 16–20; TEMP 36.2–36.6; O2SAT 94–99
--- NOTE | ~2025-05-14 | XR_ITS ---
Examination: XR abdomen/kub 1V Clinical History: ESWL Comparison: X-ray 04/05/2025 Technique: 2 views AP abdomen Findings: Lung bases clear. Scattered colonic stool. Small bowel loops not well seen. Mild hepatomegaly. Small stone right upper pole kidney as before. Phlebolith left hemipelvis. Cholecystectomy clips. No acute bony abnormality. IMPRESSION: 1. Small stone right kidney as before. 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
--- OUTSIDE RECORDS SUMMARY | 2025-05-14 03:21 | XMS_ITS | Patient Health Record ---
Author Organization [facility] Address [address] [place], [place] [id number] Care Team Providers Care Distributed Generation Project Manager Name Role Phone HEBER SERRANO Unavailable [phone] Shemar Pickering Unavailable Unavailable Reason For Referral [...] Insured Coverage Start Date Coverage End Date [facility] [address] [place], [place] [id number] CAITLIN CEJA Self - patient is the insured
--- OUTSIDE RECORDS SUMMARY | 2025-05-14 03:22 | XMS_ITS | Encounter Summary ---
Author Organization [facility] Facility Care Team Providers Care Commissary Clerk Name Role Phone Shemar Pickering MD Primary Care Provider + Shemar Pickering MD Primary Care Provider + Shemar Pickering MD Primary Care Provider + Shemar Pickering MD Primary Care Provider + Shemar Pickering MD Unavailable [phone] Encounter Details Date Type Department Care Team (Latest Contact Info) Description 06/07/2016 Orders Only [facility]INCON[facility] ProviderMeghana MD [address] [place] [address] Social History Tobacco Use Types Packs/Day Years Used Date Smoking Tobacco: Every Day Comments:Smoking History Pac ks/day: 0.25 Packs Alcohol Use Standard Drinks/Week Comments No 0 (1 standard drink = 0.6 oz pur e alcohol) Comments Unknown Sex and Gender Information Value Date Recorded Sex Assigned at Not on file Legal Sex Female 7:04 PM CONSTRUCTION CONTROLLER Gender Identity Not on file Sexual Orientation Not on file documented as of this encounter Plan of Treatment Not on file documented as of this encounter Procedures Procedure Name Priority Date/Time Associated Diagnosis Comments PROCEDURE - RESULT 05/08/2016 12 :00 AM CONSTRUCTION CONTROLLER documented in this encounter Results * PROCEDURE - RESULT (05/08/2016 12:00 AM CONSTRUCTION CONTROLLER) Narrative 05/08/2016 12:00 AM CONSTRUCTION CONTROLLER Ordered by an unspecified provider. us Historical Provider Final Res ult documented in this encounter Visit Diagnoses Not on filedocumented in this encounter Care Teams Commissary Clerk Relationship Specialty Start Date End Date Shemar Pickering MD [address] [place] [address] [place] [address] PCP - General 03/12/13 09/07/16 Shemar Pickering MD [address] [place] [address] [place] [address] PCP - General 09/08/16 09/20/16 Shemar Pickering MD [address] [place] [address] [place] [address] PCP - General 09/21/16 07/17/18 Shemar Pickering MD [address] [place] [address] [place] [address] PCP - General 07/18/18 Shemar Pickering MD [address] [place] [address] [place] [address] 07/18/18 documented as of this encounter
--- OUTSIDE RECORDS SUMMARY | 2025-05-14 03:22 | XMS_ITS | Clinical Summary ---
Author Organization [facility] Address [address] [place] [address] Care Team Providers Care Software Maintenance Engineer Name Role Phone Unavailable Primary Care Provider Unavailabl e Immunizations Immunization Administration Dates Next Due Covid-19, Mrna, Lnp-s, PF, 5 0 mcg/0.25 mL dose (Moderna) 05/11/2021 Social History Tobacco Use Types Packs/Day Years Used Date Smoking Tobacco: Never Assessed Comments Unknown Sex and Gender Information Value Date Recorded Sex Assigned at Not on file Legal Sex Female 11:13 AM AVIATION ENGINEER Gender Identity Not on file Sexual Orientation [...]
--- OUTSIDE RECORDS SUMMARY | 2025-05-14 03:22 | XMS_ITS | Data Portability ---
Author Organization LENNY SHAWANDAJazz Paul Address [address] [place] [address] Assessment Encounter Date Assessment Date Assessment LastModified by Organization Details LastModified Time 02/13/2016 02/13/2016 35 yo for IUD Counseled about IUD She preferred to continue Mirena. She says does not want any other forms of control. Explained her that Mirena need to be ordered. Explained her that Mirena can be removed today and place Mirena when it is back in the office or remove and place the Mirena on the same day. She preferred come back for Mirena removal and placement on the same day Counseled about safe sex and use of condoms. RTC for when Mirena in office [email or web address] Not available 02/13/2016 13:44:29 Plan of Treatment Reminders Order Date Submit Date Provider Last Modified By Organization Details Last Modified Time Details Appointments None recorded. 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 COVID-19 symptoms. 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 [facility] 100 2019 [facility] [address] [place], [address], 0 14:45:37 bacterial vaginosis + vaginitis panel, vaginal 2015 016 [facility], 2022 Albert Palomo, [address], [address], 6 04:32:30 urinalysis, dipstick 2015 016 In-Office Order, Internal Use Only DO Not Attach Compendium DO Not Attach Compendium, Do Not Delete/merge, [id number] 6 04:31:43 bacterial vaginosis + vaginitis panel, vaginal 2015 016 [facility], 2022 Albert Palomo, [address], [address], 6 04:32:37 test, urine 2015 016 In-Office Order, Internal Use Only DO Not Attach Compendium DO Not Attach Compendium, Do Not Delete/merge, [id number] 6 04:31:09 urinalysis, dipstick 2015 016 In-Office Order, Internal Use Only DO Not Attach Compendium DO Not Attach Compendium, Do Not Delete/merge, [id number] 6 04:31:20 test, urine 2015 016 [email or web address] In-Office Order, Internal Use Only DO Not Attach Compendium DO Not Attach Compendium, Do Not Delete/merge, [id number] 6 14:49:58 urinalysis, dipstick 2015 016 [email or web address] In-Office Order, Internal Use Only DO Not Attach Compendium DO Not Attach Compendium, Do Not Delete/merge, [id number] 6 14:49:58 Referral None recorded. Procedures None recorded. Surgeries None recorded. Imaging US, pelvis, complete - Unable to locate/visu claudio IUD string, unable to validate IUD location. 2015 016 [facility] ([facility]), [address] [facility], [place], [address], 6 04:32:36 Medication Orders Zithromax Z-Alexey 250 mg tablet 2015 016 DBA_PATCH _[id number] [facility], [address] [place], [address], 6 04:32:50 Metrogel Vaginal 0.75 % (37.5 mg/5 gram) 2015 016 [facility], [address] [place] [address], [address], 6 04:32:52 metronidazo le 500 mg tablet 2015 016 [facility], [address] [place] [address], [address], 6 04:32:51 Mirena 21 mcg/24 hr (up to 8 years) 52 mg intrauterin e device 2015 016 Not available 6 04:32:29 Mirena 21 mcg/24 hr (up to 8 years) 52 mg intrauterin e device 2015 016 [email or web address] Not available 7 16:56:14 fluconazole 150 mg tablet 2015 016 [facility], [address] [place] [address], [id number], 6 04:31:05 Mirena 21 mcg/24 hr (up to 8 years) 52 mg intrauterin e device 2015 016 [facility], [address] [place] [address], [id number], 6 04:31:08 Mirena 21 mcg/24 hr (up to 8 years) 52 mg intrauterin e device 2015 016 [email or web address] Not available 6 10:46:10 Patient TargetsNo targets recorded. Patient Instructions Encounter Date Encounter Id Patient Instructions Last Modified By Organization Details Last Modified Time 04/30/2016 [id number] IUD removal: care instructions [email or web address] Not available 04/30/2016 11:18:36 vaginal yeast infection: care instructions [email or web address] Not available 04/30/2016 11:18:37 intrauterine device (IUD) insertion: care instructions chary Not available 04/30/2016 11:18:37 2020 [id number] Reviewed the following recommendations: -Stay home and separate from others as much as possible. -Monitor your symptoms and seek medical attention for trouble breathing, persistent chest pain, confusion, or bluish lips or face. -Wear a mask if you must be around other people. -Wash your hands often for 20 seconds with soap and water and clean high-touch surfaces daily -You may discontinue home isolation if your symptoms are improving and it has been 10 days since symptoms started. [email or web address] Not available 2020 11:17:40 Reason for Referral None Reported. Results Created Date Observation Date Name Description Value Unit Range Abnormal Flag Note LastModifiedBy Organization Detail LastModifiedTime 05/16/20 16 05/16/2016 urina lysis , dipst ick Leukocytes Trace Not Available In-Offi ce Order Internal Use Only DO Not Attach Compendium DO Not Attach Compendium, Do Not Delete/merge, [id number] 05/16/2016 11:14:17 05/16/20 16 05/16/2016 urina lysis , dipst ick Nitrite negati ve Not Available In-Office Order Internal Use Only DO Not Attach Compendium DO Not Attach Compendium, Do Not Delete/merge, [id number] 05/16/2016 11:14:17 05/16/20 16 05/16/2016 urina lysis , dipst ick Urobilinogen .2 Not Available In-Of fice Order Internal Use Only DO Not Attach Compendium DO Not Attach Compendium, Do Not Delete/merge, [id number] 05/16/2016 11:14:17 05/16/20 16 05/16/2016 urina lysis , dipst ick Protein Negati ve Not Available In-Office Order Internal Use Only DO Not Attach Compendium DO Not Attach Compendium, Do Not Delete/merge, [id number] 05/16/2016 11:14:17 05/16/20 16 05/16/2016 urina lysis , dipst ick pH 6.5 Not Available In-Office Order Internal Use Only DO Not Attach Compendium DO Not Attach Compendium, Do Not Delete/merge, [id number] 05/16/2016 11:14:17 05/16/20 16 05/16/2016 urina lysis , dipst ick Blood Non-He molyze d: Trace Not Available In-Office Order Internal Use Only DO Not Attach Compendium DO Not Attach Compendium, Do Not Delete/merge, [facility] 05/16/2016 11:14:17 05/16/20 16 05/16/2016 urina lysis , dipst ick Specific Jasper 1.030 Not Available In-Off ice Order Internal Use Only DO Not Attach Compendium DO Not Attach Compendium, Do Not Delete/merge, [id number] 05/16/2016 11:14:17 05/16/20 16 05/16/2016 urina lysis , dipst ick Ketone Negati ve Not Available In-Office Order Internal Use Only DO Not Attach Compendium DO Not Attach Compendium, Do Not Delete/merge, [id number] 05/16/2016 11:14:17 05/16/20 16 05/16/2016 urina lysis , dipst ick Bilirubin Negati ve Not Available In-Office Order Internal Use Only DO Not Attach Compendium DO Not Attach Compendium, Do Not Delete/merge, Critical [facility] hospital 05/16/2016 11:14:17 05/16/20 16 05/16/2016 urina lysis , dipst ick Glucose Negati ve Not Available In-Office Order Internal Use Only DO Not Attach Compendium DO Not Attach Compendium, Do Not Delete/merge, [id number] 05/16/2016 11:14:17 05/16/20 16 05/16/2016 urina lysis , dipst ick Appearance Clear Not Available In-Offi ce Order Internal Use Only DO Not Attach Compendium DO Not Attach Compendium, Do Not Delete/merge, [id number] 05/16/2016 11:14:17 05/16/20 16 05/16/2016 urina lysis , dipst ick Color Yellow Not Available In-Office Order Internal Use Only DO Not Attach Compendium DO Not Attach Compendium, Do Not Delete/merge, [id number] 05/16/2016 11:14:17 04/30/20 16 04/30/2016 urina lysis , dipst ick Leukocytes Small Not Available In-Offi ce Order Internal Use Only DO Not Attach Compendium DO Not Attach Compendium, Do Not Delete/merge, [id number] 04/30/2016 10:45:38 04/30/20 16 04/30/2016 urina lysis , dipst ick Nitrite negati ve Not Available In-Office Order Internal Use Only DO Not Attach Compendium DO Not Attach Compendium, Do Not Delete/merge, [id number] 04/30/2016 10:45:38 04/30/20 16 04/30/2016 urina lysis , dipst ick Urobilinogen .2 Not Available In-Of fice Order Internal Use Only DO Not Attach Compendium DO Not Attach Compendium, Do Not Delete/merge, [id number] 04/30/2016 10:45:38 04/30/20 16 04/30/2016 urina lysis , dipst ick Protein Negati ve Not Available In-Office Order Internal Use Only DO Not Attach Compendium DO Not Attach Compendium, Do Not Delete/merge, [id number] 04/30/2016 10:45:38 04/30/20 16 04/30/2016 urina lysis , dipst ick pH 7.0 Not Available In-Office Order Internal Use Only DO Not Attach Compendium DO Not Attach Compendium, Do Not Delete/merge, [id number] 04/30/2016 10:45:38 04/30/20 16 04/30/2016 urina lysis , dipst ick Blood Small Not Available In-Office Order Internal Use Only DO Not Attach Compendium DO Not Attach Compendium, Do Not Delete/merge, [id number] 04/30/2016 10:45:38 04/30/20 16 04/30/2016 urina lysis , dipst ick Specific Jasper 1.020 Not Available In-Off ice Order Internal Use Only DO Not Attach Compendium DO Not Attach Compendium, Do Not Delete/merge, [id number] 04/30/2016 10:45:38 04/30/20 16 04/30/2016 urina lysis , dipst ick Ketone Negati ve Not Available In-Office Order Internal Use Only DO Not Attach Compendium DO Not Attach Compendium, Do Not Delete/merge, [id number] 04/30/2016 10:45:38 04/30/20 16 04/30/2016 urina lysis , dipst ick Bilirubin Negati ve Not Available In-Office Order Internal Use Only DO Not Attach Compendium DO Not Attach Compendium, Do Not Delete/merge, Critical [facility] hospital 04/30/2016 10:45:38 04/30/20 16 04/30/2016 urina lysis , dipst ick Glucose Negati ve Not Available In-Office Order Internal Use Only DO Not Attach Compendium DO Not Attach Compendium, Do Not Delete/merge, Critical [facility] hospital 04/30/2016 10:45:38 04/30/20 16 04/30/2016 urina lysis , dipst ick Appearance Clear Not Available In-Offi ce Order Internal Use Only DO Not Attach Compendium DO Not Attach Compendium, Do Not Delete/merge, [facility] hospital 04/30/2016 10:45:38 04/30/20 16 04/30/2016 urina lysis , dipst ick Color Yellow Not Available In-Office Order Internal Use Only DO Not Attach Compendium DO Not Attach Compendium, Do Not Delete/merge, [facility] hospital 04/30/2016 10:45:38 04/30/20 16 04/30/2016 pregn deana test, urine HCG negati ve Not Available In-Office Order Internal Use Only DO Not Attach Compendium DO Not Attach Compendium, Do Not Delete/merge, Critical [facility] hospital 04/30/2016 10:45:08 02/13/20 16 02/13/2016 urina lysis , dipst ick Leukocytes Negati ve Not Available In-Office Order Internal Use Only DO Not Attach Compendium DO Not Attach Compendium, Do Not Delete/merge, Critical [facility] hospital 02/13/2016 11:36:17 02/13/20 16 02/13/2016 urina lysis , dipst ick Nitrite negati ve Not Available In-Office Order Internal Use Only DO Not Attach Compendium DO Not Attach Compendium, Do Not Delete/merge, [id number] 02/13/2016 11:36:17 02/13/20 16 02/13/2016 urina lysis , dipst ick Urobilinogen .2 Not Available In-Of fice Order Internal Use Only DO Not Attach Compendium DO Not Attach Compendium, Do Not Delete/merge, Critical [facility] hospital 02/13/2016 11:36:02/13/2002/13/2016 urina lysis , dipst ick Protein Negati ve Not Available In-Office Order Internal Use Only DO Not Attach Compendium DO Not Attach Compendium, Do Not Delete/merge, Critical [facility] hospital 02/13/2016 11:36:02/13/2002/13/2016 urina lysis , dipst ick pH 7.0 Not Available In-Office Order Internal Use Only DO Not Attach Compendium DO Not Attach Compendium, Do Not Delete/merge, Critical [facility] hospital 02/13/2016 11:36:02/13/2002/13/2016 urina lysis , dipst ick Blood Non-He molyze d: Trace Not Available In-Office Order Internal Use Only DO Not Attach Compendium DO Not Attach Compendium, Do Not Delete/merge, Critical [facility] hospital 02/13/2016 11:36:17 02/13/2002/13/2016 urina lysis , dipst ick Specific Jasper 1.020 Not Available In-Off ice Order Internal Use Only DO Not Attach Compendium DO Not Attach Compendium, Do Not Delete/merge, Critical [facility] hospital 02/13/2016 11:36:02/13/2002/13/2016 urina lysis , dipst ick Ketone Negati ve Not Available In-Office Order Internal Use Only DO Not Attach Compendium DO Not Attach Compendium, Do Not Delete/merge, Critical [facility] hospital 02/13/2016 11:36:02/13/2002/13/2016 urina lysis , dipst ick Bilirubin Negati ve Not Available In-Office Order Internal Use Only DO Not Attach Compendium DO Not Attach Compendium, Do Not Delete/merge, [id number] 02/13/2016 11:36:02/13/2002/13/2016 urina lysis , dipst ick Glucose Negati ve Not Available In-Office Order Internal Use Only DO Not Attach Compendium DO Not Attach Compendium, Do Not Delete/merge, Critical access hospital 02/13/2016 11:36:17 02/13/20 16 02/13/2016 pregn deana test, urine HCG negati ve Not Available In-Office Order Internal Use Only DO Not Attach Compendium DO Not Attach Compendium, Do Not Delete/merge, [id number] 02/13/2016 11:36:16 05/16/20 16 05/18/2016 bacte rial vagin osis + vagin itis panel , vagin al ana maria albicans, OSIRIS NEGATI VE negati ve Not Available [facility] ([facility]) [address] [place], [address], 05/19/2016 20:07:05 05/16/20 16 05/18/2016 bacte rial vagin osis + vagin itis panel , vagin al ana maria glabrata, OSIRIS NEGATI VE negati ve THIS TEST WAS DEVEL OPED AND ITS PERFO RMANC E NITHIN CTERI STICS DETER MINED BY [facility]. IT HAS NOT BEEN CLEAR ED OR APPRO FRANCK BY THE FOOD AND DRUG ADMIN ISTRA TION. THE FDA HAS DETER MINED THAT SUCH CLEAR ANCE OR APPRO RHIANNA IS NOT NECES JOAQUIN. Not Available [facility] ([facility]) [address] [facility], [place], [address], 05/19/2016 20:07:05 05/16/20 16 05/19/2016 bacte rial vagin osis + vagin itis panel , vagin al atopobium vaginae HIGH - 2 score abnormal Not Available [facility] ([facility]) [address] [facility], [place], [address], 05/19/2016 20:07:05 05/16/20 16 05/19/2016 bacte rial vagin osis + vagin itis panel , vagin al bvab 2 LOW - 0 score Not Available [facility] ([facility]) [address] [place], [address], 05/19/2016 20:07:05 05/16/20 16 05/19/2016 bacte rial vagin osis + vagin itis panel , vagin al megasphaera 1 LOW - 0 score CALCU LATE TOTAL SCORE BY JAD Lindsay THE 3 INDIV IDUAL BACTE RIAL VAGIN OSIS (BV) MARKE R SCORE S TOGET HER. TOTAL SCORE IS INTER PRETE D FOLLO WS: TOTAL SCORE 0-1: INDIC ATES THE ABSEN CE OF BV. TOTAL SCORE 2: INDET ERMIN ATE FOR BV. ADDIT IONAL CLINI NUVIA DATA SHOUL D BE EVALU ATED TO ESTAB EBONY A DIAGN OSIS. TOTAL SCORE 3-6: INDIC ATES THE PRESE NCE OF BV. THIS TEST WAS DEVEL OPED AND ITS PERFO RMANC E NITHIN CTERI STICS DETER MINED BY [facility]. IT HAS NOT BEEN CLEAR ED OR APPRO FRANCK BY THE FOOD AND DRUG ADMIN ISTRA TION. THE FDA HAS DETER MINED THAT SUCH CLEAR ANCE OR APPRO RHIANNA IS NOT NECES JOAQUIN. Not Available [facility] ([facility]) [address] [place], [address], 05/19/2016 20:07:05 05/16/20 16 05/19/2016 bacte rial vagin osis + vagin itis panel , vagin al trich vag by OSIRIS NEGATI VE negati ve Not Available [facility] ([facility]) [address] [place], [address], 05/19/2016 20:07:05 05/16/20 16 05/19/2016 bacte rial vagin osis + vagin itis panel , vagin al chlamydia trachomatis, OSIRIS NEGATI VE negati ve Not Available [facility] ([facility]) [address] [place], [address], 05/19/2016 20:07:05 05/16/20 16 05/19/2016 bacte rial vagin osis + vagin itis panel , vagin al neisseria gonorrhoeae, OSIRIS NEGATI VE negati ve Not Available [facility] ([facility]) [address] [place], [address], 05/19/2016 20:07:05 04/14/20 20 2020 SARS CoV 2 RNA (COVI D-19) , QL, 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 A negat shelbie resul t does not precl ude the possi bilit y of 2019- nCoV infec tion since the adequ acy of sampl e colle ction and/o r low viral burde n may resul t in the prese nce of viral nucle ic acids level s below the jefferson tical sensi tivit y of this test metho d. Not Available [facility] (Lab) [address] [facility], [place], [address], 04/16/2020 14:45:37 04/14/20 20 2020 SARS CoV 2 RNA (COVI D-19) , QL, senior research project manager-P CR, respi rator y speci men covidcom2 Posit shelbie resul ts are indic ative of the prese nce of SARS- CoV-2 RNA and do not rule out bacte rial infec tion or co-in fecti on with other virus es. Not Available [facility] (Lab) [address] [facility], [place], [address], 04/16/2020 14:45:37 04/14/20 20 2020 SARS CoV 2 RNA (COVI D-19) , QL, senior research project manager-P CR, respi rator y speci men covidcom3 Test resul ts shoul d be used along with other clini nuvia obser vatio ns, patie nt histo ry, epide miolo gical infor matio n and labor atory data in catracho g the diagn osis. Not Available [facility] (Lab) [address] [place], [address], 04/16/2020 14:45:37 04/14/20 20 2020 SARS CoV 2 RNA (COVI D-19) , QL, senior research project manager-P CR, respi rator y speci men covidcom4 This test has recei franck FDA Emerg ency Use Autho rizat ion and has been verif ied by [facility] . This test is only autho rized for the durat ion of the decla ratio n and the circu mstan kavya that exist to justi fy the autho rizat ion of the emerg ency use of in vitro diagn ostic tests for the detec tion of SARS- CoV-2 virus and/o r diagn osis of COVID -19 infec tion under secti on 564 (b) (1) of the Act. 11 U.S.C . 360bb b-3 (b) (1), unles s the autho rizat ion is termi nated or revok ed soone r. Not Available [facility] ([facility]) [address] [place], [address], 04/16/2020 14:45:37 04/14/20 20 2020 SARS CoV 2 RNA (COVI D-19) , QL, senior research project manager-P CR, respi rator y speci men covidcom5 [facility] is certi fied under CLIA- 88 as quali fied to perfo rm high compl exity testi ng. This testi ng was perfo rmed in the [facility] [place] [place] [address] (CLIA Licen se #[id number] 22525 5, CAP #[id number], AU-ID #[id number]). Not Available [facility] (Lab) [address] [place], [address], 04/16/2020 14:45:37 04/14/20 20 2020 SARS CoV 2 RNA (COVI D-19) , QL, senior research project manager-P CR, respi rator y speci men covidcom6 Facts heet for healt hcare provi ders: https ://ww Campus Job.fda .gov/ media /1362 56/do wnloa d Facts heet for patie nts: https ://ww Campus Job.fda .gov/ media /1362 57/do wnloa d Not Available [facility] ([facility]) [address] [place], [address], 04/16/2020 14:45:37 05/16/20 16 05/16/2016 US, pelvi s, compl ete No observ ation record ed. [email or web address] [facility] (Imaging) [address] [facility], [place], [address], 05/21/2016 13:27:06 Result Notes None recorded. Procedures Surgical History Date Name Laterality Status Provider Name and Address Organization Details Recorded Time 016 IUD Removal completed Maxx Howard [facility] 04/30/2016 11:57:10 016 IUD Insertion completed Maxx Howard [facility] 04/30/2016 11:57:15 016 Date of Last Pap Smear completed Gayle Mota MA [facility] 02/13/2016 11:39:47 009 Cholecystectomy completed Ruth Mcwilliams MD Attn: Accounting,[address] [place], [address], [facility] [place] [facility] 02/13/2016 11:53:24 009 Orthopedic Surgery completed Juana Mccarthy MA [facility] 04/30/2016 10:39:02 Tonsillectomy completed Gayle Mota MA [facility] 02/13/2016 11:20:06 Imaging Results None recorded. Procedure Notes None recorded. Medical Equipment None Reported. Allergies No known drug allergies Medications Name Sig Start Date Stop Date Status Note LastModified by Organization Details LastModified Time amoxicilli n 500 mg capsule active Not Available Not Available Not Available Mirena 21 mcg/24 hr (up to 8 years) 52 mg intrauteri ne device Take 1 device by intrauter ine route. 2016 active to be inserted in office. Not Available Not Available Not Available venlafaxin e ER 75 mg capsule,ex tended release 24 hr active Not Available Not Available Not Available naproxen 375 mg tablet active Not Available Not Available Not Available ibuprofen 800 mg tablet active Not Available Not Available Not Available tramadol 37.5 mg-acetami nophen 325 mg tablet active Not Available Not Available No t Available fluconazol e 150 mg tablet Take 1 tablet every day by oral route as directed for 3 days. active Not Available Not Available No t Available hydrocodon e 5 mg-acetami nophen 325 mg tablet active Not Available Not Available No t Available Zithromax Z-Alexey 250 mg tablet TAKE 2 TABLETS (500 MG) BY ORAL ROUTE ONCE DAILY FOR 1 DAY THEN 1 TABLET (250 MG) BY ORAL ROUTE ONCE DAILY FOR 4 DAYS 2015 active Not Available Not Available Not Avai lable penicillin V potassium 500 mg tablet active Not Available Not Available Not Available acetaminop hen 300 mg-codeine 30 mg tablet active Not Available Not Available Not Available amitriptyl ine 50 mg tablet active Not Available Not Available Not Available amoxicilli n 875 mg tablet active Not Available Not Available Not Available Metrogel Vaginal 0.75 % (37.5 mg/5 gram) Insert 1 applicato rful every day by vaginal route at bedtime for 5 days. 2015 active Not Available Not Available Not Avai lable modafinil 200 mg tablet active Not Available Not Available Not Available Flagyl 500 mg tablet Take 1 tablet twice a day by oral route. 2015 active Not Available Not Available Not Avai lable meclizine 25 mg tablet active Not Available Not Available Not Available promethazi ne 25 mg tablet active Not Available Not Available Not Available methylpred nisolone 4 mg tablets in a dose pack active Not Available Not Available Not Available Vitamin D2 1,250 mcg (50,000 unit) capsule active Not Available Not Available Not Available ondansetro n 4 mg disintegra ting tablet active Not Available Not Available Not Available topiramate 100 mg tablet active Not Available Not Available Not Available dicyclomin e 10 mg capsule active Not Available Not Available Not Available naproxen 500 mg tablet active Not Available Not Available Not Available bupropion HCl XL 150 mg 24 hr tablet, extended release active Not Available Not Available Not Available topiramate 50 mg tablet active Not Available Not Available Not Available Viibryd 40 mg tablet active Not Available Not Available No t Available Saxenda 3 mg/0.5 mL (18 mg/3 mL) subcutaneo us pen injector active Not Available Not Available Not Available Vitals Date Recorded Body weight Body height Body mass index (BMI) Systolic And Diastolic Provider Name and Address Organization Details Last Updated DateTime 02/13/2016 52718.066 37 g 165.1 cm 33.4 kg/m2 116/82 mm[Hg] Gayle Mota MA [facility] 02/13/2016 11:41:09 Date Recorded Body height Body weight Body mass index (BMI) Provider Name and Address Organization Details Last Updated DateTime 04/30/2016 165.1 cm 81693.96 g 31.5 kg/m2 Juana Mccarthy MA [facility] 04/30/2016 10:37:43 Date Recorded Body height Body weight Body mass index (BMI) Systolic And Diastolic Provider Name and Address Organization Details Last Updated DateTime 05/16/2016 165.1 cm 04171.14 g 31.8 kg/m2 108/72 mm[Hg] Casie Shultz LPN [facility] 05/16/2016 11:08:24 Social History Question Answer Notes LastModified by Organizat ion Details LastModified Time Tobacco Smoking Status Current Every Day Smoker Gayle Mota MA [facility] 02/13/2016 11:20:05 Do You Have An Advance Directive? No Information not available 02/13/2016 Is Blood Transfusion Acceptable In An Emergency? Yes Information not available 02/13/2016 What Is Your Level Of Caffeine Consumption? Heavy Information not available 02/13/2016 How Much Tobacco Do You Chew? None Information not available 02/13/2016 What Type Of Diet Are You Following? REGULAR Information not available 02/13/2016 Education 4 Year College Information not available 02/13/2016 Live Alone Or With Others? With Others Information not available 02/13/2016 How Many Children Do You Have? 0 Information not available 02/13/2016 Performs Monthly Self-breast Exam? Yes Information no t available 02/13/2016 Do You Use Protection During Sex? No Information not available 02/13/2016 What Is Your Relationship Status? Information not available 02/13/2016 Seat Belts Used Routinely Yes Information not available 02/13/2016 Are You Sexually Active? Yes Information not available 02/13/2016 At What Age Did You Start Smoking Tobacco? 21 Information not available 02/13/2016 How Much Tobacco Do You Smoke? 0.5 PPD Information not available 02/13/2016 General Stress Level Medium Information not available 02/13/2016 Do You Use Sunscreen Routinely? Yes Information not available 02/13/2016 How Many Years Have You Smoked Tobacco? 10 Information not available 02/13/2016 Sex: Unknown Functional Status Question Answer Note LastModified by Organizat ion Details LastModified Time What is your level of alcohol consumption? Occasional Information not available 02/13/2016 Are you currently employed? 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 None Information not available 02/13/2016 Mental Status None recorded. Family History Relationship Description Onset Age of this Age Resolved Age Notes LastModified by Organization Details LastModified Time Mother Hypertensive disorder Not available 2015 11:20:06 Sister Depressive disorder Not available 2015 11:20:06 Sister Migraine Not available 02/13/2016 11:20:06 Medical History Condition Response Other N High Blood Pressure N Breast Cancer N Thyroid Problems N Kidney or Bladder Problems N GI Problems N Depression Y Blood Clots N Lung Disease N Acne N Breast Problem N Eating Disorder N Anemia N Anesthesia Complications N Headaches/Migraines Y Anxiety Disorder Y Diabetes N Ovarian Cancer N Muscle, Joint, or Bone Problems N Blood Transfusions N Seizures/Epilepsy N Polyps N Infertility N Acid Reflux (GERD) N Cancer N Abuse/Domestic Violence N Asthma N Endometriosis N High Cholesterol N Hepatitis N Liver Disease N Heart Disease N Pre-Eclampsia N Osteoporosis N Gynecological History Statement/Question Response Abnormal Pap N On BCP's at Conception? N STIs/STDs N HPV Vaccine Y Current Control Method IUD Sexually Active? N Menses Monthly N Date of Last Pap Smear 12/23/2015 Sexual Problems? N LMP Unknown Desired Control Method IUD Obstetrics History GPAL:G 0 P 0 0 0 0 Type Value Multiple Births 0 Full Term 0 Induced 0 Spontaneous 0 Premature 0 Living 0 Ectopics 0 Total 0 Immunizations Vaccine Type Date Status Note Provider Nam e and Address Organization Details Recorded Time COVID-19, mRNA, LNP-S, PF, 100 mcg/0.5mL dose or 50 mcg/0.25mL dose 1 completed Eran arroyo [place] - [facility] 12/15/2020 12:29:50 COVID-19, mRNA, LNP-S, PF, 100 mcg/0.5mL dose or 50 mcg/0.25mL dose 1 completed Eran arroyo [place] - [facility] 12/15/2020 12:30:18 Influenza, split virus, quadrivalent, preservative 6 completed Not Available [employer] 07/11/2019 02:39:17 Past Encounters Encounter ID Performer Location Encounter Start Date Encounter Closed Date Diagnosis/Indication Diagnosis SNOMED-CT Code Diagnosis ICD10 Code Diagnosis IMO Codes Diagnosis Note [id number] Ruth Mcwilliams MD [facility] (CRM FUNCTIONAL ANALYST) [address] [place] [address] 02/13/2016 10:45:36 02/14/2016 13:01:29 Contraception care 841494593 Z30.40 wanting a new mirena. Did not remove Mirena today, will remove old and insert new on same visit next time after Mirena device is in office. Mirena ordered today. MSison [facility] 02/13/2016 [facility] [id number] Maxx Howard MD [facility] (CRM FUNCTIONAL ANALYST) [address] [place] [address] 0 04/30/2016 10:21:45 04/30/2016 12:32:14 Removal of intrauterine device 33958857 Z30.432 Uses IUD (intrauterine device) contraception 802851013 Z97.5 Active or passive immunization 068370515 Z23 Candidiasis of vagina 72 326848 B37.3 Family gissel nning surveillance 931540508 Z30.09 [id number] Teo Garcia MD [facility] (CRM FUNCTIONAL ANALYST) [address] [place] [address] 05/16/2016 10:37:50 05/16/2016 17:31:15 IUD check 263216569 Z30.431 Vaginal di scharge present 610007667 N89.8 [id number] MD Maia FowlersoAmanda liu [address] [place] [address] 2020 10:44:34 04/18/2020 09:56:25 Viral screening 843236190 Z11.59 D/w pt the current pandemic of COVID-19 and call for social isolation in order to blunt the curve and minimize risk and spread. Encouraged patient and family to take restrictio ns seriously. They have verbalized understand ing of such. Viral syndrome 369071837 B34.9 Health Concerns Section Related Observation LastModified by Organization Detai ls LastModified Time None Recorded Concern Status LastModified by Organization Details LastModified Time None Recorded Advance Directives Directive N: Payers Insurance Date Sequence Insurance Name Policy Number Policy Adam Covered Member ID Adam Member ID Guarantor Name 05/26/2020 1 [employer] - US NOW (INDEMNITY) Nevin Vinayak [id number] Nevin Vinayak 05/26/2020 1 [employer] - DOS PRIOR TO 20 - [facility] BENEFITS [facility] [id number] Nevin Vinayak [id number] Nevin Vinayak 04/26/2025 1 [employer] - DOS PRIOR TO 20 - [facility] BENEFITS PLAN (HMO) Nevin Vinayak [id number] Nevin Vinayak Notes Date Note Type Note Provider Name and Address Organization Details Recorded Time 6 text/html ROS as noted in the HPI she says she had Mirena placed on 02/09/2011. She says she liked Mirena. denies any bleeding on it. she said she has minimal spotting occasionally. She wanted to continue mirena. Ruth Mcwilliams MD Attn: Accounting,[address] [facility], [place], [address], [facility] [place] [facility] [place] 02/13/2016 14:20:06 6 text/html OCP CheckReported by PatientHPIFor associated symptoms, patient reportsbtb menses (infrequent spotting). 36 yo G0 WF who presents for Mirena insertion with re-insertion of a new Mirena. This Mirena has been in over 5 years. No concerns. Maxx Howard cruz, [facility] 04/30/2016 11:58:41 6 text/html OCP CheckReported by PatientHPIFor associated symptoms, patient reportsregular menses,no btb menses, andno side effects. 36 yo here for iud check Teo Garcia cruz, [facility] 05/16/2016 15:51:04 0 text/html COVID-19 Symptoms October 2019Reported by PatientUpper Respiratory SymptomsFor associated symptoms, patient reportssweatsbut reportsno sputum production,no wheezing,no runny nose,no vomiting,no diarrhea,no body aches,no nausea,no change in mental status,no hypotension, andno tachycardia. For covid-19 signs and symptoms, patient reportscough resolved,fever resolved,shortness of breath resolved,chills resolved,repeated shaking with chills resolved,muscle pain resolved,headache resolved,sore throat resolved,loss of taste or smell resolved,vomiting or diarrhea resolved,fatigue resolved,anorexia resolved,cough same,fever same,chills same, andheadache same. For contacts and exposure, patient reportsclose contact with a confirmed or suspected case of covid-19andclose proximity with person with covid-19. COVID ScreeningReported by PatientHPIFor onset/duration of fever, patient reportsfeverbut reportsno feverandhighest fever 99.3. For associated symptoms, patient reportscoughbut reportsno coughandno shortness of breath.ROS as noted in the HPI 40 yo female ,spoke via phone with C/O, headache, fever, cough, sweat, chills. COVID-19 symptoms. 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 ARNOL Wynn NP Attn: Accounting,[address] [place], [address], [facility] 2020 11:18:05 OBGyn Episode No OBEpisode recorded.
--- OUTSIDE RECORDS SUMMARY | 2025-05-14 03:22 | XMS_ITS | Clinical Summary ---
Author Organization [facility] [email or web address] Address [address] [place] [address] Care Team Providers Care Fisher Clam Name Role Phone Shemar Pickering MD Primary Care Provider [phone] Source Comments [facility],non-[facility] Affiliates and Associated Physician Practices is amultiple site organization consisting of ambulatory clinics and hospital sitesin [place], [place], [place] and [place]. This disclosure is being madepursuant to the Care Everywhere program and may not contain all information available regarding this patient. Last updated 18.[facility] [email or web address] Allergies No known active allergies Medications * [...] VACCINE (1 of 2 - PCV) 1998 Cervical Cancer Screening 2000 PAP SMEAR 2000 PAP with HPV 2009 DEPRESSION SCREENING 06/24/2024 COVID-19 VACCINE (1 - 2024-2 6 season) 2025 INFLUENZA VACCINE (#1) 2025 ZOSTER [...] patient's age to complete this topic Insurance [employer] SELF PAY NO INSURANCE Member Subscriber Plan / Payer (Ef fective for All Dates) Name:Caitlin Licea Member ID:Not on file Relation to Subscriber:Not on file Name:CAITLIN LICEA Subscriber ID:Not on file (Home) Address: [address] [place] [address] Payer ID:Not on file Group ID:Not on file Type:Self Pay Address: [place], [place] [employer] Care Teams Fisher Clam Relationship Specialty Start Date End Date Shemar Pickering MD PCP - General Internal Medicine 04/10/17
--- OUTSIDE RECORDS SUMMARY | 2025-05-14 03:22 | XMS_ITS | Clinical Summary ---
Author Organization [facility] Address [address] [place] [address] Care Team Providers Care System Developer Associate Manager Name Role Phone Shemar Pickering MD Primary Care Provider + Shemar Pickering MD Unavailable [phone] Allergies Active Allergy Reactions Criticality Noted Date [...] needed Assessment & Plan (05/09/2023 7:45 AM STAFFING DIRECTOR): Dysphagia for the past few months. 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 Hx Other Medical psychiatric dis order/mild depression; [...] on file Legal Sex Female 7:04 PM STAFFING DIRECTOR Gender Identity Not on file Sexual Orientation Not on file Last Filed Vital Signs Vital Sign Reading Time Taken Comments Blood Pressure 140/82 06/04/2024 8:38 AM STAFFING DIRECTOR Pulse 110 06/04/2024 8:38 AM STAFFING DIRECTOR Temperature 36.2 C (97.1 F) 04/21/2024 7:58 AM CDT Respiratory Rate 20 06/04/2024 8:38 AM STAFFING DIRECTOR Oxygen Saturation 96% 06/04/2024 8:38 AM STAFFING DIRECTOR Inhaled Oxygen Concentration - - Weight 102.1 kg (225 lb) 06/04/2024 8:38 AM STAFFING DIRECTOR Height 165.1 cm (5' 5) 06/04/2024 8:38 AM STAFFING DIRECTOR Body Mass Index 37.44 06/04/2024 8:38 AM STAFFING DIRECTOR Plan of Treatment Health Maintenance Due Date [...] this topic Medical Devices Implanted Type Area Machine Tool Electrician Device Identifier Shelf Expiration Date Model / [...] MD LAB BLOOD ORDERABLES Fin al Result [place] [id number] [facility] Department [place] [address] * Differential, auto (02/26/2025 11:43 AM CDT) Neutrophil abs 6.29 1.50 - 6.50 K/cumm Imm gran abs 0.05 0.00 - 0.10 K/cumm [facility] Lymphocyte abs 2.86 0.80 - 3.30 K/cumm [facility] Monocyte abs 0.76 0.20 - 0.80 K/cumm [facility] Eosinophil abs 0.24 0.00 - 0.50 K/cumm [facility] Basophil abs 0.06 0.00 - 0.10 K/cumm [facility] Neutrophil pct 61.3 % [facility] Comment: Interpretive Data Percent cell count reference ranges are not reported, since discordance with absolute values may lead to misinterpretation of CBC data. Current Interpretive Data was last revised on 2017. Imm gran pct 0.5 % [facility] Comment: Interpretive Data Percent cell count reference ranges are not reported, since discordance with absolute values may lead to misinterpretation of CBC data. Current Interpretive Data was last revised on 2017. Lymphocyte pct 27.9 % [facility] Comment: Interpretive Data Percent cell count reference ranges are not reported, since discordance with absolute values may lead to misinterpretation of CBC data. Current Interpretive Data was last revised on 2017. Monocyte pct 7.4 % [facility] Comment: Interpretive Data Percent cell count reference ranges are not reported, since discordance with absolute values may lead to misinterpretation of CBC data. Current Interpretive Data was last revised on 2017. Eosinophil pct 2.3 % [facility] Comment: Interpretive Data Percent cell count reference ranges are not reported, since discordance with absolute values may lead to misinterpretation of CBC data. Current Interpretive Data was last revised on 2017. Basophil pct 0.6 % [facility] Comment: Interpretive Data Percent cell count reference ranges are not reported, since discordance with absolute values may lead to misinterpretation of CBC data. Current Interpretive Data was last revised on 2017. Blood 02/26/2025 11:4 3 AM CDT 02/26/2025 11:43 AM CDT Shemar Pickering MD LAB BLOOD ORDERABLES Fin al Result Performing Organization Address City/[facility]/ZIP Co de Phone Number [facility] [address] [place] [address] * (ABNORMAL) CBC with auto differential (02/26/2025 11:43 AM CDT) WBC 10.26(H) 3.80 - 9.90 K/cumm Hgb 14.4 11.9 - 15.5 g/dL [facility] Hct 42.7 35.6 - 45.5 % [facility] Plt 433(H) 150 - 400 K/cumm [facility] MPV 9.5 9.1 - 12.3 fL [facility] RBC 4.73 3.90 - 5.20 M/cumm [facility] MCV 90.3 81.3 - 96.4 fL [facility] MCH 30.4 27.1 - 33.3 pg [facility] MCHC 33.7 32.3 - 35.7 g/dL [facility] RDW CV 13.3 11.1 - 14.9 % [facility] RDW SD 44.2 35.7 - 48.1 fL [facility] NRBC abs 0.00 0.00 - 0.01 K/cumm [facility] Blood 02/26/2025 11:4 3 AM CDT 02/26/2025 11:49 AM CDT Shemar Pickering MD LAB BLOOD ORDERABLES Fin al Result Performing Organization Address City/[facility]/ZIP Co de Phone Number [facility] [address] [place] [address] * Vitamin D 25 hydroxy (02/26/2025 11:43 AM CDT) Vitamin D 25-OH 43.0 30.0 - 80.0 ng/mL Blood 02/26/2025 11:4 3 AM CDT 02/26/2025 11:49 AM CDT Shemar Pickering MD LAB BLOOD ORDERABLES Fin al Result Performing Organization Address [facility] de Phone Number [address] [address] * TSH (02/26/2025 11:43 AM CDT) Thyroid Stimulating Hormone 1.96 0.30 - 4.20 mcIUnit/mL Blood 02/26/2025 11:4 3 AM CDT 02/26/2025 11:49 AM CDT Shemar Pickering MD LAB BLOOD ORDERABLES Fin al Result Performing Organization Address [facility] de Phone Number [address] [address] * T4, free (02/26/2025 11:43 AM CDT) Free T4 1.06 0.90 - 1.70 ng/dL Blood 02/26/2025 11:4 3 AM CDT 02/26/2025 11:49 AM CDT Shemar Pickering MD LAB BLOOD ORDERABLES Fin al Result Performing Organization Address [facility] de Phone Number [address] [address] * (ABNORMAL) Lipid panel (02/26/2025 11:43 AM [...] revised on 2024. Non-HDL Cholesterol 155 mg/dL [facility] Comment: Interpretive Data Ages < or [...] last revised on 2018. Chol/HDL ratio 5 [facility] Blood 02/26/2025 11:4 3 AM CDT 02/26/2025 11:49 AM CDT us Shemar Pickering MD LAB BLOOD ORDERABLES Fin al Result [facility] [address] [facility] Department of Laboratories [place], [place] [id number] * Comprehensive metabolic panel (02/26/2025 11:43 AM CDT) Sodium 140 135 - 145 mmol/L Potassium, pl 3.9 3.3 - 4.9 mmol/L [facility] Chloride 105 97 - 110 mmol/L [facility] CO2 23 22 - 32 mmol/L [facility] Anion gap 12 2 - 15 mmol/L [facility] BUN 13 6 - 25 mg/dL [facility] Creatinine 0.76 0.60 - 1.10 mg/dL [facility] Glucose 122 70 - 199 mg/dL [facility] Comment: Interpretive Data Fasting glucose >/= [...] 2022. Calcium 9.6 8.5 - 10.3 mg/dL [facility] Bilirubin, total 0.2 0.1 - 1.2 mg/dL [facility] Protein, pl 7.1 6.5 - 8.5 g/dL [facility] Albumin 4.3 3.5 - 5.0 g/dL [facility] Alk phos 77 40 - 130 Units/L [facility] ALT 34 7 - 45 Units/L [facility] AST 27 10 - 45 Units/L [facility] Blood 02/26/2025 11:4 3 AM CDT 02/26/2025 11:49 AM CDT Shemar Pickering MD LAB BLOOD ORDERABLES [facility] al Result [facility] [address] [facility] Department [place] [address] * N. gonorrhoeae/C. trachomatis Amplification Urine (02/26/2025 11:35 AM CDT) C. trachomatis Not Detected [facility] Comment:Testing performed by : [facility], [address] [place] [address]., [address] N. gonorrhoeae Not Detected [facility] Comment: Interpretive Data This assay detects Chlamydia trachomatis and Neisseria gonorrhoeae by nucleic acid amplification testing (NAAT). This assay has been cleared by the [place] Food and Drug administration. The performance characteristics of this test have been verified by the [facility] Molecular Infectious Disease laboratory. The performance characteristics of this test have not been evaluated in individuals less than 14 years of age. Current Interpretive Data was last revised on 2023. Testing performed by: [facility], [address] [place] [address]., [address] Urine 02/26/2025 11:3 5 AM CDT 02/26/2025 3:49 PM CDT Shemar Pickering MD LAB MICROBIOLOGY - GENER AL ORDERABLES Final Result Performing Organization Address [facility] de Phone Number [facility] [address] [address] B[place] * (ABNORMAL) Urinalysis reflex to microscopic and culture Urine (02/26/2025 11:35 AM CDT) Color, ur Yellow Yellow Clarity, ur Clear Clear [facility] Specific gravity, ur 1.005 1.003 - 1.030 [facility] pH, urine 7.0 [facility] Comment: Interpretive Data U rine pH is affected by diet, medications, systemic acid-base disturbances, and renal tubular function. pH may affect urinary stone formation. For example, urine pH below 6.0 may help reduce the tendency for calcium phosphate stones and pH greater than 6.0 may reduce the tendency for uric acid stone formation. Source: [facility] Current Interpretive Data was last revised on 2017 Protein, ur ql Negative Negative [facility] Glucose, ur ql Negative Negative [facility] Ketones, ur Negative Negative [facility] Bilirubin, ur Negative Negative [facility] Blood, ur 1+(A) Negative [facility] Urobilinogen, ur <2.0 <2.0 mg/dL [facility] Nitrite, ur Negative Negative [facility] Leukocyte esterase, ur 4+(A) Negative [facility] UA reflex comment Reflex to microscopic UA will be performed. [facility] Urine 02/26/2025 11:3 5 AM CDT 02/26/2025 11:50 AM CDT Shemar Pickering MD LAB MICROBIOLOGY - GENER AL ORDERABLES Final Result Performing Organization Address [facility] Co de Phone Number [facility] [address] [place] [address] * (ABNORMAL) Urinalysis, microscopic only (02/26/2025 11:35 AM CDT) WBC, ur 0-5 0 - 5 /HPF RBC, ur 3-5(A) 0 - 2 /HPF [facility] Epithelial cells, squamous, ur 1-5 0 - 5 /HPF [facility] Bacteria, ur 1+(A) [facility] Mucous, ur Present(A) [facility] Culture Reflex Comment Reflex conditions for urine culture (WBC >10) not met. [facility] Urine 02/26/2025 11:3 5 AM CDT 02/26/2025 11:50 AM CDT us Shemar Pickering MD LAB URINE ORDERABLES Fin al Result [facility] [address] [facility] Department [place] [address] * Colonoscopy (04/21/2024 7:30 AM CDT) Anatomical Region Laterality Modality Other Narrative Procedure Note Jose Fritz MD - 04/21/2024 7:30 AM CDT [facility] GI ENDOSCOPY Patient Name: Nevin Licea Procedure Date: 04/21/2024 7:30 AM Date of : 1980 Admit Type: Outpatient Age: 44 Gender: Female Attending MD: Jose Fritz M.D. Room: [facility] ENDOSCOPY ROOM 06 Note Status: Finalized Procedure: [...] The scope was passed under direct vision.The [id number] was introduced through theanus and advanced to [...] On: 04/21/2024 7:30 AM Recognized by the [employer] for promoting quality in endoscopy Jose Fritz MD ENDOSCOPY PROCEDURES Final Resul t * MAMMOGRAPHY (11/28/2015) Mammogram Normal Comment:Next screening at ag e 39 Historical Provider HEALTH MAINTENANCE Final Result from Last 3 Months or Most Recently Relevant to Health Maintenance Insurance [facility] [id number] [facility] [id number] [facility] [id number] Care Teams System Developer Associate Manager Relationship Specialty Start Date End Date Shemar Pickering MD [address] [address] PCP - General 07/18/18 Shemar Pickering MD [address] [place] [address] 07/18/18
--- OUTSIDE RECORDS SUMMARY | 2025-05-14 03:22 | XMS_ITS | Clinical Summary ---
Author Organization [facility] Address [address] [place] [address] Care Team Providers Care Risk Management Manager Name Role Phone Unavailable Primary Care [...] 03/03/2025 9:00 AM CDT Office Visit [facility] Urology at the [address] [place] [address] Rafa Cooney MD Nephrolithiasis (Primary Dx); Lower abdominal pain; Dysuria 03/03/2025 8:03 AM CDT - 03/03/2025 11:59 PM CDT Hospital Encounter [facility] Radiology [address] [place] [address] Deborah Mayes FNP Discharge Disposition: Home or Self Care 03/01/2025 Orders Only [facility] Urology at the [place] [address] [place] [address] Deborah Mayes, ELISSA Nephrolithiasis (Primary Dx) from Last 3 Months [...] IMPRESSION: Right nephrolithiasis. [facility]ATION: [facility] AGILITY INSTRUCTOR DIAGNOSTIC IMAGING ORDERABLES Final Result from Last 3 Months Insurance [facility] [employer]
--- OUTSIDE RECORDS SUMMARY | 2025-05-14 03:22 | XMS_ITS | Encounter Summary ---
Author Organization [facility] Facility Care Team Providers Care Evp General Counsel Name Role Phone Shemar Pickering MD Primary Care Provider + Shemar Pickering MD Primary Care Provider + Shemar Pickering MD Primary Care Provider + Shemar Pickering MD Primary Care Provider + Shemar Pickering MD Unavailable [phone] Encounter Details Date Type Department Care Team (Latest Contact Info) Description 06/12/2016 Orders Only [facility] Provider, MD Meghana [address] [place] [id number] Social History Tobacco Use Types Packs/Day Years Used Date Smoking Tobacco: Every Day Comments:Smoking History Pac ks/day: 0.25 Packs Alcohol Use Standard Drinks/Week Comments No 0 (1 standard drink = 0.6 oz pur e alcohol) Comments Unknown Sex and Gender Information Value Date Recorded Sex Assigned at Not on file Legal Sex Female 7:04 PM [employer] Gender Identity Not on file Sexual Orientation Not on file documented as of this encounter Plan of Treatment Not on file documented as of this encounter Procedures Procedure Name Priority Date/Time Associated Diagnosis Comments PROCEDURE - RESULT 06/12/2016 12 :00 AM [employer] PROCEDURE - RESULT 06/07/2016 12 :00 AM [employer] ATT[employer]ER documented in this encounter Results * PROCEDURE - RESULT (06/12/2016 12:00 AM PARACHUTE [employer] ATTACHER) Narrative 06/12/2016 12:00 AM [employer] ATT[employer]ER Ordered by an unspecified provider. us Historical Provider Final Res ult * PROCEDURE - RESULT (06/07/2016 12:00 AM PARACHUTE [employer] ATT[employer]ER) Narrative 06/07/2016 12:00 AM [employer] ATT[employer]ER Ordered by an unspecified provider. us Historical Provider Final Res ult documented in this encounter Visit Diagnoses Not on filedocumented in this encounter Care Teams Evp General Counsel Relationship Specialty [place] [address] [place] [address] LENNY QUINN [id number] PCP - General 03/12/13 09/07/16 Shemar Pickering MD [address] [place] [address] LENNY QUINN [id number] PCP - General 09/08/16 09/20/16 Shemar Pickering MD [address] [place] [address] LENNY QUINN [id number] PCP - General 09/21/16 07/17/18 Shemar Pickering MD [address] [place] [address] LENNY QUINN [id number] PCP - General 07/18/18 Shemar Pickering MD [address] [place] [address] LENNY QUINN [id number] 07/18/18 documented as of this encounter
[2025-05-14] MEDS: LACTATED RINGERS 1,000 ML 30 ML IV CONT (06:30)
--- NOTE | 2025-05-14 06:34 | WPDHPUPDATE1 ---
History and Physical Update Update Date/Time: 05/14/25 06:34 History and Physical has been reviewed, including an updated exam of the patient. There are NO changes in the patient's condition. Risks, benefits, and alternatives have been discussed and questions answered. Patient agrees to proceed with procedure.
--- NOTE | 2025-05-14 06:35 | WPDHPUPDATE1 ---
History and Physical Update Update Date/Time: 05/14/25 06:35 History and Physical has been reviewed, including an updated exam of the patient. There are NO changes in the patient's condition. Risks, benefits, and alternatives have been discussed and questions answered. Patient agrees to proceed with procedure.
--- NOTE | 2025-05-14 06:46 | WPDANESEPPF ---
Anes - Initial Pre Proc Eval Procedure: Operation Date: 05/14/25 07:30 Proposed Procedures p Right Extracorporeal Shock Wave Lithotripsy - Douglas Carrasco MD Date/Time: 05/14/25 06:46 Surgeon: Douglas Carrasco MD Pre Op Diagnosis: Right Kidney Stone Patient Data Age: 45 Gender: F Height: 1.65 m Weight: 113.6 kg Allergies Allergy/AdvReac Type Severity Reaction Status Date / Time No Known Allergies Allergy Unknown Verified 04/30/25 15:31 Home Medications ?Medication ?Instructions ?Recorded ?Confirmed ?Type ondansetron 4 mg disintegrating 4 mg PO Q8H PRN nausea and 02/27/24 04/30/25 Rx tablet vomiting #10 tabs escitalopram oxalate 10 mg tablet 20 mg PO DAILY 01/31/25 04/30/25 History ondansetron 4 mg disintegrating 4 mg PO Q8H PRN nausea and 02/01/25 04/30/25 Rx tablet vomiting #10 tabs buspirone 10 mg tablet 10 mg PO BID 04/09/25 04/30/25 History cholecalciferol (vitamin D3) 10 2,000 unit PO DAILY 04/09/25 04/30/25 History mcg (400 unit) tablet cranberry 500 mg capsule 1,000 mg PO DAILY 04/09/25 04/30/25 History cyanocobalamin (vitamin B-12) 100 100 mcg PO DAILY 04/09/25 04/30/25 History mcg tablet (Vitamin B-12) gabapentin 100 mg capsule 100 mg PO DAILY 04/09/25 04/30/25 History glucosamine 375 tg-aggyguajr-wex 1 tablet PO DAILY 04/09/25 04/30/25 History no1 500 mg-C 15 mg-guy 0.5 mg tablet (Mucjezglszi-Mntlfgoyddx-QMV Complex) lactobacillus combination no.4 3 3,000 mmu cells PO DAILY 04/09/25 04/30/25 History billion cell capsule (Probiotic) magnesium 200 mg tablet 200 mg PO DAILY 04/09/25 04/30/25 History multivitamin (Daily Multi-Vitamin 1 tablet PO DAILY 04/09/25 04/30/25 History tablet) Patient hx anesthesia problems: none Family hx anesthesia problems: none Results Review: All pre-operative results and documents have been reviewed as part of the pre-operative evaluation. [facility] Past Medical History Medical History Borderline diabetes Neuropathy Narcolepsy Kidney stones Depression Morbid obesity Surgical History Surgical History History of foot surgery History of lung biopsy Status post bunionectomy Status post wrist surgery 2007, 2016 Status post laparoscopic cholecystectomy Family History Family History Mother Hypertension Grandparent Diabetes mellitus Social History Social History Smoking packs per day: 0.5 Smoking cigarettes per day: 10.0 Years smoked: 13 Smoking pack-years: 6.50 Smoking status: Current every day smoker Tobacco type: cigarettes Alcohol intake: current Alcohol use details: 2x/year Substance use: current Substance use type: marijuana Other substance usage details: EDIBLES EVERY COUPLE WEEKS Living arrangements: with family Spiritual care concerns: No Anes - Eval Final PreProcedure Day of Procedure 05/14/25 06:46 Patient weight: morbidly obese Heart: regular rate and rhythm Lungs: clear to auscultation Airway: Mallampati scale class II Neurological: alert and oriented Last oral intake: >/= 8 hours ASA classification: III Emergent: no Anesthetic plan: proceed Anesthesia type and monitoring: general LMA and standard monitoring Results Review: All pre-operative results and documents have been reviewed as part of the pre-operative evaluation. Informed Consent: The patient's anesthetic plan and its attendant risks and benefits were discussed with the patient/family/POA. Questions were solicited and answers provided to the satisfaction of the patient/family/POA.
[2025-05-14] MEDS: SCOPOLAMINE 1 MG PATCH 1 PATCH TRANSDERM (07:15)
[2025-05-14] MEDS: ceFAZolin 2 GM in SODIUM CHLORIDE 0.9% IV 50 ML 100 ML IVPB (07:25)
--- NOTE | 2025-05-14 07:42 | W.PM.PROC2 ---
Procedure Note - Detailed Date of Procedure 05/14/25 Pre-op Diagnosis Right Kidney Stone Post-op Diagnosis Same Procedure Performed Right ESWL Surgeon Douglas Carrasco MD Anesthesia General Description of Procedure The patient was brought to the operative suite where she was placed in the supine position on the Dornier lithotripsy table. The focal point of the lithotripter was placed at a 3-4mm right mid-pole renal calculus. A total of 200 shocks were delivered at a power setting of 4. There appeared to be good fragmentation of the stone. The patient tolerated the procedure well and was taken to the recovery room in good condition. Drains No Packing No Pathology None sent Complications No immediate complications
[2025-05-14] MEDS: oxyCODONE HCL (*CRX) 5 MG TAB IR PO (09:15)
[2025-05-17 11:46] LABS: BEDSIDEPREGUCG Negative (Negative)
== END 2025-05-14 09:53 | disposition home or self-care (01) ==
PROVIDERS: PCP Nurse Practitioner Adult Health; Visit Provider Urology
PROC: (CPT 50590; principal; 2025-05-14 07:30)
DX: N20.0 Calculus of kidney (principal); R73.03 Prediabetes; F32.A Depression, unspecified; G62.9 Polyneuropathy, unspecified; G47.419 Narcolepsy without cataplexy; F12.90 Cannabis use, unspecified, uncomplicated; F17.210 Nicotine dependence, cigarettes, uncomplicated; E66.01 Morbid (severe) obesity due to excess calories; Z68.41 Body mass index [BMI] 40.0-44.9, adult; Z98.890 Other specified postprocedural states; Z90.49 Acquired absence of other specified parts of digestive tract
CPT/HCPCS: 50590; 74018; J0690; A9270; J1100; J2003; J2250; J2405; J2704; J3010; J7120

== ENCOUNTER 2025-05-27 12:28 | Outpatient (CLI) | payer OTHER, SELFPAY ==
--- NOTE | ~2025-05-27 | XR_ITS ---
EXAMINATION: XR abdomen/kub 1V, 05/27/2025 12:38 [employer]ESSOR [employer] HISTORY: N20.0 - Calculus of kidney COMPARISON: No comparisons available. Technique: 3 view. Findings: Bowel gas pattern unremarkable. No obstruction. Right mid to superior pole 2 mm calculus, bowel content obscures evaluation of the left kidney. No acute osseous abnormality. Impression: 1. No acute abnormality. 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 No acute abnormality.
== END 2025-05-27 12:29 | disposition home or self-care (01) ==
LOC: MICIMG 12:30
PROVIDERS: PCP Nurse Practitioner Adult Health; Visit Provider Urology
DX: N20.0 Calculus of kidney (principal)
CPT/HCPCS: 74018